=== PATIENT | male | born 1945 | race Caucasian/White ===

== ENCOUNTER 2024-06-23 13:37 | Inpatient (IN) | payer OTHER, SELFPAY ==
[2024-06-23] VITALS (8 sets, daily range): BP systolic 116–160; BP diastolic 67–90; BMI 25.4
--- NOTE | 2024-06-23 07:20 | ED.GENMED ---
Addendum entered and electronically signed by Chintan Pacheco Jr., PA-C 06/23/24 15:14:
The patient claims that he would like to go home. The patient does have full capacity it was explained to him thoroughly that there is significant risk of going home considering he is still mildly tachycardic in the low 100 and his pulse ox was low
earlier. He demonstrated understanding of this. He claims he still would like to go home and would come back if any symptoms worsen. Concerning this he was written for antibiotics and steroids given very strict return precautions. Patient does
understand the potential consequences of going home against our advice.
Original Note:
History of Present Illness
General
Chief Complaint: Cold/Flu/URI Symptoms
Source: patient, spouse and family
Exam Limitations: none
Time Seen by Provider: 06/23/24 07:13
Nursing documentation reviewed up to this point in time: agreed with
History of Present Illness
History of Present Illness:
78-year-old male with past medical history of collapsed left lung COPD presenting to the emergency department today with concerns of initial viral symptoms over the past few days but over the past 2 days noticeable worsening of shortness of breath.
Does not use home oxygen but was concerned of low pulse ox en route here.
Past History
Past History
ED Past Medical History: HTN, Hypercholesterolemia, Other (BPH, obesity, kidney stones) and Other (inclusion body myositis, collapsed lung,)
ED Past Surgical History: Appendectomy and Orthopedic (knee problem)
Social History
Tobacco: Former smoker
Alcohol: None
Drug: None
Personal:
Living: with family
Employment: Retired
Family History
Family History: Other (non contrib)
Review of Systems
Review of Systems
Allergies reviewed?: Yes
All Other Systems: ROS reviewed and negative except as documented in HPI and ROS
Phy Exam
Physical Exam
Physical Exam:
GENERAL: Alert , in no apparent distress
EYE: pupils equal and reactive
NECK: Supple, no significant adenopathy.
ENT: o/p clr, mmm.
CARDIAC: Regular rate and rhythm .
LUNGS: Expiratory wheezing diffusely
ABDOMEN: Soft, without focal tenderness, no r/g, no cvat
NEUROLOGICAL: Alert and oriented, no focal neuro deficits
SKIN: Warm and dry, skin intact.
MUSCULOSKELETAL: No edema, well perfused.
PSYCH: Normal and appropriate interaction.
Sepsis
Sepsis Screening
Sepsis Assessment: Sepsis Ruled Out
Sepsis Screen
Sepsis Screen: Sepsis Ruled Out
Date: 06/23/24
Time: 11:54
Course
Orders/Labs/Results
Orders:
Orders
06/23/24 07:20
Chest [CR Chest - 2 Views ] Urgent
Comment:
Reason For Exam: cough sob
06/23/24 07:32
Basic Metabolic Panel Urgent
COVID-19 Antigen Urgent
Source: Nasal Swab
Complete Blood Count/With Diff Urgent
Influenza A+B Rapid Molecular Urgent
NIALL Source: Nasal Swab
Specimen Description:
06/23/24 07:47
EKG [Electrocardiogram (*1)] Urgent
Reason for Study: Fatigue / Weakness
EKG- Treatment ONCE
Dexamethasone [Decadron] 10 mg PO NOW STA
Ipratropium/Albuterol Sulfate [Duoneb] 3 ml INH R NOW ONE
06/23/24 08:58
Azithromycin [Zithromax] 500 mg PO NOW STA
Ipratropium/Albuterol Sulfate [Duoneb] 3 ml INH R NOW ONE
Abnormal Lab Results
06/23/24
07:32
Absolute Neuts (auto) 7.7 H 10^3/uL
(1.4-6.5)
Absolute Monos (auto) 0.8 H 10^3/uL
(0.1-0.6)
Lymphocytes % 11.9 L %
(20.5-51.1)
Creatinine 0.5 L mg/dL
(0.7-1.3)
Glucose 110 H mg/dl
(70-99)
06/23/24 07:32
06/23/24 07:32
Vital Signs
Initial and Last Documented VS:
Initial Vital Signs
Temp Pulse Resp BP Pulse Ox
98.3 F 108 21 160/83 96
06/23/24 07:11 06/23/24 07:11 06/23/24 07:11 06/23/24 07:11 06/23/24 07:11
Last Documented Vital Signs
Temp Pulse Resp BP Pulse Ox
98.3 F 124 29 135/67 95
06/23/24 07:11 06/23/24 10:15 06/23/24 10:15 06/23/24 10:00 06/23/24 10:15
MDM/Problems Addressed
MDM/Problems Addressed:
78-year-old male presenting to the emergency department today with concerns of worsening shortness of breath over the past 24 hours. Preceded by with him to be consistent with a viral syndrome. Upon arrival here pulse ox in the 80s patient appears
somewhat short of breath. Patient does have expiratory wheezing and was started on steroids and DuoNebs. Does have a history of COPD and has had increased mucus production was started on azithromycin. Patient reassessed after multiple DuoNebs
steroids and azithromycin dose. Patient continued elevated heart rate pulse ox dropping to the 80s when off of oxygen. Considering the patient is not typically on oxygen plan to admit for further treatment and monitoring here.
*Critical Care Note
Total Time (30-74mins, 75-104mins- exclusive of procedures): Not Applicable
ED Attending Note
-
Portions of this chart may have been created with voice recognition software.� Occasional wrong word or��sound alike� substitutions may have occurred due to the inherent limitations of voice recognition software.
Discharge Plan
Departure
Patient Disposition: Admit
Date of Disposition: 06/23/24
Time of Disposition: 11:53
Admit to: Med/Surg
Admit to doctor: Abdiel
Presentation/result/management discussed w/ accepting MD/DO: Hospitalist
Patient with high blood pressure during this ER visit?: No
Condition: Good
Covid-19: Not Applicable
Discharge Problem:
COPD exacerbation, Acute viral syndrome
Prescriptions:
No Action
lisinopril 40 MG tablet
40 mg PO HS
finasteride 5 MG tablet
5 mg PO DAILY
atorvastatin 20 MG tablet
20 mg PO QPM
Spiriva Respimat 2.5 mcg/actuation Mist
2 inh INHALATION R DAILY
docusate sodium 100 MG capsule
200 mg PO QPM
albuterol sulfate 1 PUFF HFA aerosol inhaler
2 puff inhalation R Q8HPRN PRN (Reason: sob)
budesonide-formoterol [Symbicort] 160-4.5 mcg/actuation Hfa Aerosol Inhaler
1 inh INHALATION R BIDPRN PRN (Reason: sob)
ibuprofen [Advil] 200 mg Tablet
400 mg PO DAILYPRN PRN (Reason: mild pain)
Referrals:
Thierno Mckee DO [Family Provider] -
Interventions
Interventions:
*Risk Screen - Suicide Last Done: 06/23/24 07:11
*General Assessment Last Done: 06/23/24 07:11
*Neglect/Abuse Screening Last Done: 06/23/24 07:11
ED- Fall Risk Assessment Last Done: 06/23/24 07:11
*ED COVID-19 Vaccine History Last Done: 06/23/24 07:11
ED- Pulmonary Assessment Last Done: 06/23/24 07:46
Discharge Date and Time
Print Language: NEPALI
[2024-06-23 07:57] LABS: % Eosinophils 5.7 % (0-6); % Immature Granulocytes 0.4 % (0-0.5); % Lymphocytes 11.9 % (20.5-51.1); % Monocytes 7.7 % (1.7-9.3); % Neutrophils 73.3 % (42.2-75.2); Absolute Basophils 0.1 10^3/uL (0-0.2); Absolute Eosinophils 0.6 10^3/uL (0-0.7); Absolute Lymphocytes 1.2 10^3/uL (1.2-3.4); Absolute Monocytes 0.8 10^3/uL (0.1-0.6); Absolute Neutrophils 7.7 10^3/uL (1.4-6.5); Hematocrit 45.4 % (39.0-52.0); Hemoglobin 15.3 g/dL (13.0-18.0); Mean Corp Hgb Conc. 33.7 g/dL (33.0-37.0); Mean Corpuscular Hgb 29.7 pg (27.0-31.0); Mean Platelet Volume 9.6 fL (7.4-10.4); Nucleated Red Blood Cells % 0 % (-); Platelet Count 208 10^3/uL (130-400); Red Blood Cell Count 5.16 10^6/uL (4.70-6.10); Red Cell Dist. Width 13.2 % (11.5-14.5); White Blood Cell Count 10.4 10^3/uL (4.8-10.8)
[2024-06-23] MEDS: DECADRON 10 MG PO (07:58)
[2024-06-23] MEDS: DUONEB 3 ML INH ×2 (07:58→09:27)
[2024-06-23 08:05] LABS: COVID-19 Antigen Negative (Negative)
[2024-06-23 08:07] LABS: Blood Urea Nitrogen 17 mg/dl (9-20); Calcium 8.7 mg/dl (8.4-10.2); Carbon Dioxide 28 mmol/L (22-30); Chloride 100 mmol/L (98-107); Estimated Creatinine Clearance 115 ml/min; Glucose 110 mg/dl (70-99); Sodium 138 mmol/L (135-145); eGFR > 60.00
[2024-06-23] MEDS: ZITHROMAX 500 MG PO (09:27)
--- NOTE | 2024-06-23 12:17 | W.PN.UPDATE ---
Update Note
Progress Note Update
I personally performed a history and physical exam of the patient and discussed management with the resident. I reviewed the resident's note and agree with the documented findings and plan of care HPI/CC.
78-year-old male presents with chief complaint of shortness of breath.
135/67, 124, 29, 98.3 F, 95%
Gen: NAD, AAOx3.
Eyes: EOMI, PERRLA, no scleral icterus.
Neck: supple.
CV: RRR, +S1/S2, no m/r/g.
Resp: dec BS in the bases, B/L wheezes
Abd: +BS, soft, NT, ND
Skin: No rashes.
Neuro: CN 2-12 intact
Psych: Normal mood and affect.
Lab Results
06/23/24
07:32
WBC 10.4
RBC 5.16
Hgb 15.3
Hct 45.4
MCV 88.0
MCH 29.7
MCHC 33.7
RDW 13.2
Plt Count 208
MPV 9.6
Abs Immat Gran (auto) 0.0
Absolute Neuts (auto) 7.7 H
Absolute Lymphs (auto) 1.2
Absolute Monos (auto) 0.8 H
Absolute Eos (auto) 0.6
Absolute Basos (auto) 0.1
Immature Gran % 0.4
Neutrophils % 73.3
Lymphocytes % 11.9 L
Monocytes % 7.7
Eosinophils % 5.7
Basophils % 1.0
Nucleated RBC % 0
Sodium 138
Potassium
Chloride 100
Carbon Dioxide 28
BUN 17
Creatinine 0.5 L
Estimated Creat Clear 115
eGFR > 60.00
Glucose 110 H
Calcium 8.7
Total Bilirubin Cancelled
AST Cancelled
ALT Cancelled
Alkaline Phosphatase Cancelled
Total Protein Cancelled
Albumin Cancelled
SARS-CoV-2 Antigen Negative
CXR: There is mild elevation of the left hemidiaphragm with likely chronic left basilar atelectasis/scarring. No new focal airspace disease.
Acute COPD Exac:
-ER gave Decadron 10mg IV, xuan perkins
-cont IV Decadron
-NC O2 support, goal pulse ox 90-92%
-duonebs PRN
-cont home Spiriva/symbicort
Other problems:
HLD: Cont statin
Essential HTN: cont Lisinopril
--- NOTE | 2024-06-23 12:44 | HPS.HSE ---
Family Physician
-
Family Physician: Thierno Mckee
Chief Complaint
-
Shortness of breath
History of Present Illness
This is a 78-year-old male with past medical history of inclusion body myositis (wheelchair-bound), collapsed left lung COPD, BPH who presented to ED today with worsening shortness of breath. Patient reports he had episode of viral syndrome the
past 2 days with symptoms including runny nose, productive cough with clear sputum, shortness of breath. Shortness of breath continued to worsen, hence he decided to come into the ED for evaluation. On presentation to ER, pulse ox was in the
80s with patient appearing to be short of breath. Afebrile with blood pressure stable, heart rates in 120s, O2 sats 96% on 2 L. Patient reports he does not use oxygen at home. He reports his typical baseline is mild shortness of breath due to
collapsed lung, but this has been worsening since the viral syndrome.
Medical History
Past Medical History
Past Medical History: Reports Other (BPH, kidney stones, inclusion body myositis, collapsed left lung, hypertension, hypercholesterolemia)
Past Surgical History: Reports Other (Appendectomy)
Social History
Tobacco: Former Smoker (Has not smoked in 40 years.)
Alcohol: None
Drug: None
Personal:
Living: With Family
Family History
Family History: Not pertinent
Allergies / Home Medications
Allergies reflects when Allergies were last updated in [facility].
Home Medications with original date entered in [facility]
Allergy/Medication List:
Allergies
Allergy/AdvReac Type Severity Reaction Status Date / Time
Beta-Blockers Allergy Unknown Unknown Verified 09/02/15 15:40
(Beta-Adrenergic Bloc
Home Medications
finasteride 5 mg tablet 5 mg PO DAILY 08/19/14
lisinopril 40 mg tablet 40 mg PO HS 08/19/14
atorvastatin 20 mg tablet 20 mg PO QPM 08/27/15
albuterol sulfate 90 mcg/actuation aerosol inhaler 2 puff inhalation R Q8HPRN PRN sob 06/23/24
budesonide-formoterol HFA 160 mcg-4.5 mcg/actuation aerosol inhaler (Symbicort) 1 inh inhalation R BIDPRN PRN sob 06/23/24
docusate sodium 100 mg capsule 200 mg PO QPM 06/23/24
ibuprofen 200 mg tablet (Advil) 400 mg PO DAILYPRN PRN mild pain 06/23/24
tiotropium bromide 2.5 mcg/actuation mist for inhalation (Spiriva Respimat) 2 inh inhalation R DAILY 06/23/24
Review of Systems
-
History Source: Patient
A 12 point ROS was completed and negative except as noted: Yes
Constitutional: Reports See HPI
Respiratory: Reports See HPI
Physical Exam
Vital Signs
Vital Signs
Temp Pulse Resp BP Pulse Ox
98.3 F 116 24 116/72 96
06/23/24 07:11 06/23/24 12:30 06/23/24 12:30 06/23/24 12:00 06/23/24 12:30
Physical Exam
General: Well Developed and Well Nourished
Respiratory: Wheezes (Expiratory bilateral wheezes) and Decreased Breath Sounds (Bilateral bases); No Rales or Rhonchi
Cardiac: S1/S2, Regular Rhythm and Tachycardia
GI: Soft, Non Tender and Non Distended
Musculoskeletal: No Edema
Neuro: Awake, Alert, Oriented and AO x 3
Laboratory Results
-
06/23/24 07:32
06/23/24 07:32
Laboratory Results
Total Bilirubin Cancelled 06/23/24 07:32
AST Cancelled 06/23/24 07:32
ALT Cancelled 06/23/24 07:32
Alkaline Phosphatase Cancelled 06/23/24 07:32
Impression/Plan
-
IMPRESSION/PLAN:
#Acute COPD exacerbation
-On presentation to the ER was given Decadron 10 mg IV, DuoNebs, azithromycin
-Will continue on Decadron 4 mg IVq8
-DuoNebs as needed
-Continue home Symbicort and Spiriva Respimat
-CXR on presentation: There is mild elevation of the left hemidiaphragm with likely chronic left basilar atelectasis/scarring. No new focal airspace disease.
-PT eval and treat
-Continue O2 support, wean to tolerated level 90 to 92%
# Hypertension
-Continue home lisinopril
#Hyperlipidemia
-Continue statin
#BPH
-Continue finasteride
CODE STATUS: Full code
DVT prophylaxis: Lovenox
--- NOTE | 2024-06-24 07:30 | W.DCSUMMARY ---
Addendum entered and electronically signed by Dean Medina MD, Resident 06/24/24 09:04:
CHANGES: Date of discharge is 06/23/2024. Patient left AMA 06/23/2024
Addendum entered and electronically signed by Clark Meadows MD 06/24/24 08:34:
Read, reviewed, and agree. See same day progress note for additional details. Pt left AMA.
Original Note:
Discharge Summary
Discharge Data
Date of Admission: 06/23/24
Date of Discharge: 06/24/24
-
Pending Results: No
Hospital Course
This is a 78-year-old male with past medical history of inclusion body myositis (wheelchair-bound), collapsed left lung COPD, BPH who presented to ED yesterday with worsening shortness of breath. Patient reports he had episode of viral syndrome
the past 3 days with symptoms including runny nose, productive cough with clear sputum, shortness of breath. Shortness of breath continued to worsen, hence he decided to come into the ED for evaluation. On presentation to ER, pulse ox was in
the 80s with patient appearing to be short of breath. Afebrile with blood pressure stable, heart rates in 120s, O2 sats 96% on 2 L. Evaluation with a chest x-ray showed mild elevation of the left hemidiaphragm with likely chronic left basilar
atelectasis/scarring and no new focal airspace disease. Patient was given Decadron, DuoNebs, azithromycin and NC O2 support in the ER. Patient decided to leave AGAINST MEDICAL ADVICE despite understanding the significant risk of going home
considering he was still mildly tachycardic and his pulse ox was low. He demonstrated understanding this decision.
Patient left AGAINST MEDICAL ADVICE.
Discharge Plan
-
Patient Disposition: Home (Routine Discharge)
Prescriptions:
No Action
lisinopril 40 MG tablet
40 mg PO HS
finasteride 5 MG tablet
5 mg PO DAILY
atorvastatin 20 MG tablet
20 mg PO QPM
Spiriva Respimat 2.5 mcg/actuation Mist
2 inh INHALATION R DAILY
docusate sodium 100 MG capsule
200 mg PO QPM
albuterol sulfate 1 PUFF HFA aerosol inhaler
2 puff inhalation R Q8HPRN PRN (Reason: sob)
budesonide-formoterol [Symbicort] 160-4.5 mcg/actuation Hfa Aerosol Inhaler
1 inh INHALATION R BIDPRN PRN (Reason: sob)
ibuprofen [Advil] 200 mg Tablet
400 mg PO DAILYPRN PRN (Reason: mild pain)
Discharge Date and Time
Discharge Date/Time: 06/23/24 16:13
Print Language: POLISH
== END 2024-06-23 16:13 | disposition left against medical advice (07) | DRG 191 ==
LOC: ED 13:37
PROVIDERS: Physician Assistant; Student in an Organized Health Care Education/Training Program; ADMITTING PHYSICIAN Internal Medicine; EMERGENCY PHYSICIAN Emergency Medicine; FAMILY PHYSICIAN Family Medicine
DX: J44.1 Chronic obstructive pulmonary disease with (acute) exacerbation (principal); J98.11 Atelectasis; I10 Essential (primary) hypertension; E66.9 Obesity, unspecified; G72.41 Inclusion body myositis [IBM]; B34.9 Viral infection, unspecified; Z53.29 Procedure and treatment not carried out because of patient's decision for other reasons; E78.00 Pure hypercholesterolemia, unspecified; N40.0 Benign prostatic hyperplasia without lower urinary tract symptoms; Z68.25 Body mass index [BMI] 25.0-25.9, adult; Z87.442 Personal history of urinary calculi; Z99.3 Dependence on wheelchair; Z87.891 Personal history of nicotine dependence; Z79.899 Other long term (current) drug therapy; Z88.8 Allergy status to other drugs, medicaments and biological substances
CPT/HCPCS: 71046; 80048; 85025; 87502; 87811; 93005; 94640; 99285

== ENCOUNTER → 2025-04-01 11:50 | Outpatient (REF) | payer OTHER, SELFPAY | LOC: RAD 11:50 | PROVIDERS: ATTENDING PHYSICIAN Surgery Vascular Surgery; FAMILY PHYSICIAN Family Medicine | DX: I71.43 Infrarenal abdominal aortic aneurysm, without rupture (principal) | CPT/HCPCS: 74178; Q9967 ==

== ENCOUNTER 2025-05-09 06:14 | Inpatient (IN) | payer OTHER, SELFPAY ==
[2025-05-05 10:15] VITALS: BMI 23.1
[2025-05-05 10:42] LABS: Hematocrit 45.7 % (39.0-52.0); Hemoglobin 14.9 g/dL (13.0-18.0); Mean Corp Hgb Conc. 32.6 g/dL (33.0-37.0); Mean Corpuscular Volume 91.8 fL (80.0-94.0); Nucleated Red Blood Cells % 0 % (-); Platelet Count 191 10^3/uL (130-400); Red Cell Dist. Width 14.1 % (11.5-14.5)
[2025-05-05 10:53] LABS: INR 0.98; PT 13.5 Sec (11.4-14.6)
[2025-05-05 10:54] LABS: APTT 29.0 Sec (23.4-35.0)
[2025-05-05 11:08] LABS: Blood Urea Nitrogen 16 mg/dl (9-20); Calcium 8.5 mg/dl (8.4-10.2); Carbon Dioxide 32 mmol/L (22-30); Chloride 99 mmol/L (98-107); Estimated Creatinine Clearance 112 ml/min; Glucose 108 mg/dl (70-99); Potassium 4.3 mmol/L (3.5-5.1); Sodium 135 mmol/L (135-145); eGFR > 60.00
[2025-05-09] VITALS (9 sets, daily range): BP systolic 119–161; BP diastolic 75–102
--- NOTE | 2025-05-09 06:55 | W.SUR.PREOP ---
Pre-Operative Surgical Note
-
I have examined this patient prior to the performance of the scheduled procedure.
The patient's condition is unchanged from the time of the current History and
Physical and the patient is able to undergo the scheduled procedure.
[2025-05-09] MEDS: NSS 500 IV (07:05)
[2025-05-09] MEDS: BACTROBAN NASAL 1 GRAM NASAL (07:11)
[2025-05-09] MEDS: PERIDEX 0.12% ORAL RINSE 15 ML PO (07:11)
--- NOTE | 2025-05-09 09:10 | W.SUR.POST ---
Surgical Immediate Post Op
Note
Pre Op Diagnosis: AAA
Post Op Diagnosis: AAA
Procedure Performed: EVAR
Primary Surgeon: Anant
Secondary Surgeons: Farhan HONG
Anesthesia: general
Estimated Blood Loss: 5cc
Fluids: see anesthesia flow sheet
Drains/Shunts: none
Specimens/Cultures: none
Doppler/Duplex/Angio (Y/N): Y
Complications: none
Operative Findings: successful EVAR
--- NOTE | 2025-05-09 09:54 | OR.RPT ---
Addendum entered and electronically signed by Sid Ny MD 05/09/25 09:58:
FLUOROSCOPY:
Time: 12.2 minutes
Dose: 136 mGy
DAP: 39.19
Original Note:
Operative Report
Operative Report
PROCEDURE DATE: 05/09/2025
Preoperative diagnosis: Infrarenal abdominal aortic aneurysm.
Postoperative diagnosis: Same
Procedure:
1. Endovascular repair of abdominal aortic aneurysm with bifurcated modular endoprosthesis ([employer] Zenith Flex [id number]) with bilateral iliac limb extension (left Cook [id number] [id number]-[id number], right Cook [id number]).
2. Percutaneous bilateral common femoral artery closure.
3. Supervision and interpretation.
Surgeon: Anant
Parts Runner: None
Complications: None
Anesthesia: General
Indications for procedure:
Abdominal aortic aneurysm, enlarging surveillance, reached size threshold for repair. Risk/benefits/alternatives of endovascular pair were all fully discussed. Patient understood all wished to proceed.
Description of procedure:
Patient was identified brought to the operating room placed on the table in supine position. After the adequate administration of anesthesia and perioperative antibiotics he was prepped and draped in the standard surgical fashion. A standard
preoperative timeout was undertaken and everybody was in agreement the plan. Bilateral common femoral artery access was obtained under direct duplex ultrasound guidance. 6 Indian sheaths were placed over 0.035 inch wires. Next, small 1 cm
incisions were made around the sheath entry sites bilaterally. Blunt dissection was undertaken with hemostats to facilitate percutaneous suture delivery. Next, using the ProGlide suture system, percutaneous sutures were deployed at the 10:00 and 2
o'clock position bilaterally in the standard fashion. Suture strands were tagged outside the skin. We exchanged for 11 Indian sheaths bilaterally. Next wires were guided into the supraceliac aorta from bilateral access sites. On the left side I
exchanged out for a pigtail catheter which was positioned in the juxtarenal aorta. The right side I exchanged for a Lunderquist wire. The patient was given 6000units of intravenous heparin. The main body of the device was brought into place (Cook
[id number]). I oriented this under fluoroscopy such that the contralateral gate would be essentially anterior or slightly crossed. Next I exchanged my right-sided 11 Indian sheath for the Cook delivery system. This was advanced under direct
fluoroscopy.
Once this was advanced to the level of the juxtarenal aorta, power injection aortography was obtained via the left-sided pigtail catheter. This was done in the appropriate obliquity based on the CT scan imaging prior. The positions of bilateral
renal arteries were essentially at the same level, and were marked clearly on the screen. Next, I began to unsheath the main body stent graft once I was satisfied that the beginning of the fabric was positioned just at or below the level of the
inferior margin of the renal arteries. I unsheathed the first 2 stents. Stent graft was slightly high and I lowered it again to match up with the positioning of the inferior aspect of the renal arteries so as not to cover them. Once satisfied, I
continued to unsheath until the contralateral gate was now fully exposed. Of note, the pigtail catheter had been withdrawn down prior to this portion.
Next, I released the proximal trigger wire. I then deployed the suprarenal bare stents in the standard fashion. I now exchanged the pigtail catheter over a Glidewire, and advanced a K2 catheter. This is an angled catheter and using this and the
floppy Glidewire I was able to relatively easily cannulate the contralateral gate. I advanced the Glidewire all the way up to the supraceliac aorta. I then exchanged the K2 catheter for a pigtail catheter. I spun the pigtail catheter within the
stent graft and above the stent graft confirming that the pigtail was indeed through the true lumen of the contralateral gate. Now I advanced a Lunderquist wire and performed retrograde pelvic angiography in the appropriate obliquity. As such I
was able to katie the level of the iliac bifurcation and select the appropriate level iliac limb for this contralateral left side now. This was a Cook [id number] device. I now exchanged the left side 11 Indian sheath out (once the pigtail
catheter was removed) over this Lunderquist wire for the delivery device for the iliac limb. I now advanced the stent graft into position such that I had suitable overlap in the contralateral gate and distally I was just short of the iliac
bifurcation. Once satisfied with the positioning, I unsheathed this and deployed it completely. I was very satisfied with the positioning. The delivery device was then removed maintaining the sheath in place.
I now turned my attention to the right side. I now unsheathed the remaining portion of the right iliac limb of the main body of the stent graft. Once this was completed, the distal trigger wire was then released, the nose cone recaptured in the
top cap, and this delivery mechanism walked off, maintaining the sheath in place. Next we selected the appropriate extension iliac stent for the right ipsilateral side. This was a Cook [id number]. Retrograde pelvic angiography in the
appropriate obliquity had been performed to katie the iliac bifurcation. I now advanced the iliac stent and positioned it with suitable overlap in the ipsilateral limb (iliac limb) of the main body, and confirmed that I was just short of the iliac
bifurcation so as not to cover it. Satisfied with the position I unsheathed this completely. I was very happy with its positioning. I now remove this delivery device.
Now a Coda molding balloon was used to mold proximal and distal seal zones as well as overlap sites.
Pigtail catheter was then readvanced up the right side. Power injection completion angiography demonstrated excellent positioning of the stent graft with good filling of bilateral renal arteries. No evidence of any type I endoleak was noted.
Bilateral iliac limbs filled well and bilateral external and internal iliac arteries filled well as well. There is no evidence of type Ib endoleak noted. I could not see a definitive type II endoleak on this imaging. I could not see any filling
of the aneurysm sac at this point. Was very satisfied.
Next I exchanged my pigtail catheter back for a Lunderquist wire. Next, I sequentially removed the sheath while cinching down the percutaneous sutures. This was initially done on the right side and then on the left. Once hemostasis was noted the
wire was then withdrawn, the knot was tightened with a knot pusher. Hemostasis was confirmed. The knot was then locked and the suture strands trimmed. This was done as noted on the right initially and then on the left. Hemostasis was fully
achieved bilateral groins with good femoral pulses bilaterally. The small skin incisions were then closed with 4-0 Monocryl subcuticular stitch and Dermabond was applied. Patient tolerated procedure well. He had palpable 2+ right PT and left DP
pulse upon completion. The patient tolerated the procedure well. He was transported to recovery room in stable condition.
[2025-05-09 10:26] LABS: Blood Urea Nitrogen 16 mg/dl (9-20); Calcium 8.0 mg/dl (8.4-10.2); Carbon Dioxide 27 mmol/L (22-30); Chloride 102 mmol/L (98-107); Estimated Creatinine Clearance 112 ml/min; Glucose 91 mg/dl (70-99); Potassium 4.1 mmol/L (3.5-5.1); Sodium 134 mmol/L (135-145); eGFR > 60.00
[2025-05-09 10:45] LABS: Hematocrit 42.0 % (39.0-52.0); Hemoglobin 13.6 g/dL (13.0-18.0); Mean Corp Hgb Conc. 32.4 g/dL (33.0-37.0); Mean Corpuscular Volume 90.7 fL (80.0-94.0); Red Cell Dist. Width 13.8 % (11.5-14.5)
[2025-05-09] MEDS: NSS 1000 IV ×2 (11:29→20:08)
[2025-05-09 11:41] LABS: Platelet Count 148 10^3/uL (130-400)
--- NOTE | 2025-05-09 12:00 | PTCARENOTE ---
Rec'd patient from PACU at 1105. Patient alert and oriented. MAEx4. EKG obtained- ST with first degree avb and pvcs. B/l LE neurovascular checks wnl (see worklist). B/l groin sites intact. Simple mask 6L. Lung sounds diminished throughout. Weaned to
RA around 1140. Productive cough present; thick, clear sputum. [place] provided. +BS. Tolerating clears. Baltazar in place for critical I/O. IVFs infusing as ordered. VSS. Right radial negar zeroed. Correlating with bp cuff. Patient verbalizing
understanding of HOB restriction. Call marks within reach.
--- NOTE | 2025-05-09 12:05 | CON.INTV ---
Consultation
Consultation Request
Date/Time Consultation Requested: 05/09/2025
Date/Time Consultation Performed: 05/09/2025
Medical History
-
Chief Complaint: Aortic aneurysm
History of Present Illness:
Patient is a 79-year-old gentleman with known history of abdominal aortic aneurysm which was noted to be enlarging on surveillance imaging. Patient was referred to vascular surgery service and was felt to be a good candidate for endovascular aortic
aneurysm repair. Patient was brought to the hospital on 05/09 for the above-stated procedure and postprocedure, was admitted to ICU. Nurse Midwife/Clinical Instructor consultation was requested for further input.
Past medical history. BPH, COPD/asthma overlap, moderate restrictive lung disease suspect due to obesity, hypertension, hyperlipidemia, obstructive sleep apnea, left lower lobe bronchiectasis, inclusion body myositis, abdominal aortic aneurysm.
Social history. Close to [id number] smoking history, patient quit smoking more than 20 years ago.
Allergies / Home Medications
Allergies
Allergy/AdvReac Type Severity Reaction Status Date / Time
Beta-Blockers Allergy Unknown Unknown Verified 05/09/25 06:31
(Beta-Adrenergic Bloc
Home Medications
�Medication �Instructions �Recorded �Confirmed �Last Taken �Type
finasteride 5 mg tablet 5 mg PO DAILY 08/19/14 05/09/25 05/09/25 05:30 History
lisinopril 40 mg tablet 40 mg PO QPM 08/19/14 05/09/25 05/08/25 18:00 History
atorvastatin 20 mg tablet 20 mg PO QPM 08/27/15 05/09/25 05/08/25 18:00 History
albuterol sulfate 90 mcg/actuation 2 puff inhalation R Q8HPRN PRN sob 06/23/24 05/09/25 8 Months Ago History
aerosol inhaler ~09/08/24
tiotropium bromide 2.5 2 inh inhalation HS 06/23/24 05/09/25 05/08/25 22:00 History
mcg/actuation mist for inhalation
(Spiriva Respimat)
albuterol sulfate 2.5 mg/3 mL 2.5 mg inhalation DAILY 05/02/25 05/09/25 05/08/25 07:00 History
(0.083 %) solution for nebulization
amlodipine 5 mg tablet 5 mg PO QPM 05/02/25 05/09/25 05/08/25 18:00 History
Review of Systems
-
Hematologic/Lymphatic: Other (All 14 systems reviewed and negative except as stated above in the history of present illness.)
Vitals / Labs / Diagnostic Testing
Vital Signs
Temp Pulse Resp BP Pulse Ox
96 F L 86 14 161/91 96
05/09/25 11:20 05/09/25 11:30 05/09/25 11:30 05/09/25 11:13 05/09/25 11:41
Lab Data
05/09/25 09:55
05/09/25 09:55
Diagnostic Testing:
Physical Exam
-
HEENT: Normocephalic
Cardiovascular: S1/S2
Respiratory: Clear
GI: Soft and Non Distended
Neurology: Awake and Alert
Skin: Warm
General: Comfortable
Assessment
-
Patient is 79-year-old gentleman with history of abdominal aortic aneurysm s/p EVAR (endovascular aneurysmal repair) by vascular surgery service, POD #0
Continue observation following procedure
Follow neurovascular checks per protocol
ASA, Amlodipine and statin on board
Follow BP monitoring and parameters as set by primary team
Cardiac history reviewed
Monitor on telemetry
Pain control per protocol
RASS goal 0
Known history of left lower lobe atelectasis/chronic scarring
CXR reviewed indicating no acute disease
Encouraged IS
Diet advancement per protocol
Aspiration precautions
GI prophylaxis: None
Cr at baseline, follow UO
Critical I/Os
Void trials
Replete electrolytes as needed
No signs/symptoms suspicious for infectious etiology at this time
Will observe off antibiotics for now
Follow temperatures/CBC
Hb and platelets postoperatively stable
DVT prophylaxis: Heparin
Other medical diagnoses:
- h/o Asthmatic bronchitis and COPD. On Spiriva, PRN Albuterol.
- Inclusion body myositis
- Hypertension, hyperlipidemia
- Palpitation with occasional PVCs
- Rosacea
- LLL focal bronchiectasis and chronic scarring/atelectasis on imaging
- H/o Smoking, quit >20 years ago
- H/o Pulmonary nodules, stable (Follows up with Dr. Galan at [facility] Pulmonary clinic)
- H/p STEVE. Not on CPAP at home, reportedly has lost more than 40 pounds of weight since initial diagnosis and currently not complaining of excessive somnolence.
- History of mixed obstructive and restrictive lung disease. Suspect restriction related to underlying history of inclusion body myositis and weakness along with obesity.
Critical Care time 62 mins -- The patient is admitted for acute critical illness for the treatment of vital organ failure and/or prevention of further life-threatening conditions. Total care includes time spent in review of history, physical exam,
medications, hemodynamic/ventilator parameters, laboratory data, imaging and discussion with house staff, pharmacy, respiratory therapy, chief of anesthesiology, and nursing
Data:
CXR 04/2025: No radiographic evidence of acute cardiopulmonary abnormality.
CT A/P 04/2025: 1. 5 cm fusiform infrarenal abdominal aortic aneurysm.
2. 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
3. Diffuse muscular atrophy.
4. Punctate calculus within the midpole of the right kidney. No hydronephrosis. Couple of small bladder calculi. Severe prostamegaly.
Spirometry 08/2015: Severe probable combined Obstructive and Restrictive Lung Disease is present.
ECHO 2016: Normal left ventricular systolic function.
Left ventricular ejection fraction is 55-60%.
Mild concentric left ventricular hypertrophy.
No mitral regurgitation is seen.
Trace tricuspid regurgitation.
No prior study available for comparison.
[2025-05-09] MEDS: LOW STRENGTH ASPIRIN 81 MG PO (12:20)
[2025-05-09 12:43] LABS: Glucose - Point of Care 95 mg/dl (70-99)
[2025-05-09] MEDS: HEPARIN 5000 UNITS SC (16:07)
--- NOTE | 2025-05-09 16:15 | PTCARENOTE ---
No major changes in assessment. Patient resting comfortably. VSS. Tolerating clears. Diet advanced to cholesterol lowering diet.
[2025-05-09] MEDS: NORVASC 5 MG PO (17:02)
[2025-05-09] MEDS: LIPITOR 20 MG PO (17:02)
[2025-05-09] MEDS: ZESTRIL 40 MG PO (17:03)
[2025-05-09 17:44] LABS: Magnesium 1.7 mg/dl (1.6-2.3)
[2025-05-09] MEDS: SPIRIVA RESPIMAT 2.5 MCG 2 PUFF INH (19:44)
--- NOTE | 2025-05-09 20:17 | PTCARENOTE ---
Received patient at change of shift. Patient aao x3, affect pleasant, able to make needs known. Patient able to move all extremities, strength at baseline per patient and previous RN. B/L pedal and doppler pulses present with doppler. B/L groin
sites with surgical glue, intact and soft. Lungs diminished throughout, no sob or mata noted. Pox 94% on RA. BS active x4, abdomen soft, non-tender. Baltazar cath patent and intact, draining clear yellow urine. Hygiene provided, sacral foam applied for
preventative measures. Patient has NS at 80ml/hr to left forearm IV. Call marks within reach, will continue to monitor patient closely.
[2025-05-10] VITALS: BP 111/66
[2025-05-10] MEDS: NSS 250 IV (00:38)
[2025-05-10] MEDS: HEPARIN 5000 UNITS SC ×2 (00:53→09:58)
--- NOTE | 2025-05-10 01:12 | PTCARENOTE ---
Patient continues to be pain free. Patient noted to have decreased hourly urine output. Tawanda HONG notified, IVF bolus ordered and administered. Will continue to monitor.
[2025-05-10 05:04] LABS: INR 1.08; PT 14.3 Sec (11.4-14.6)
--- NOTE | 2025-05-10 05:04 | PTCARENOTE ---
Assessment overall unchanged. Patient oriented and able to make needs known. Urinary output has increased to average 40ml/hr, clear yellow urine. Will continue to monitor patient closely.
[2025-05-10 05:05] LABS: APTT 33.0 Sec (23.4-35.0)
[2025-05-10 05:10] VITALS: BMI 24.0
[2025-05-10 05:10] LABS: Hematocrit 40.8 % (39.0-52.0); Hemoglobin 13.4 g/dL (13.0-18.0); Mean Corp Hgb Conc. 32.8 g/dL (33.0-37.0); Mean Corpuscular Volume 88.9 fL (80.0-94.0); Platelet Count 163 10^3/uL (130-400); Red Cell Dist. Width 13.8 % (11.5-14.5)
[2025-05-10 05:21] LABS: Blood Urea Nitrogen 14 mg/dl (9-20); Calcium 7.5 mg/dl (8.4-10.2); Carbon Dioxide 28 mmol/L (22-30); Chloride 104 mmol/L (98-107); Estimated Creatinine Clearance 113 ml/min; Glucose 111 mg/dl (70-99); Potassium 4.3 mmol/L (3.5-5.1); Sodium 133 mmol/L (135-145); eGFR > 60.00
[2025-05-10] MEDS: VENTOLIN NEBULES 2.5 MG INH (07:42)
[2025-05-10 08:00] VITALS: BP 153/84
--- NOTE | 2025-05-10 09:03 | W.PN.VS ---
Addendum entered and electronically signed by Gael Zazueta III, MD 05/10/25 10:32:
This patient was seen and examined in collaboration with GELY Lacy. I agree with the history and physical exam as well as the assessment and plan.
Signed:
Gael Zazueta III, MD
Vascular Surgery
[facility]
Original Note:
Today's Communication / Plan
-
Plan reviewed with attending Dr. Gael Zazueta III.
Assessment/Plan
-
Assessment: 79 year old male POD#1 Endovascular repair of abdominal aortic aneurysm with bifurcated modular endoprosthesis (Voxli Zenith Flex [id number]) with bilateral iliac limb extension
Plan:
Discontinue arterial line
Discontinue IV fluids
Discontinue zazueta catheter
Continue statin and ASA 81mg PO daily as antiplatelet
Possible dc this afternoon pending patient progression
Subjective Data
-
Date of Service: May 10, 2025
Patient seen and examined, offers no complaints. Reports eagerness for dc to home. Tolerating PO diet. Denies pain at BL groins.
Objective Data
-
Vital Signs
Temp Pulse Resp BP Pulse Ox
96.6 F L 90 18 153/84 95
05/10/25 07:57 05/10/25 08:00 05/10/25 08:00 05/10/25 08:00 05/10/25 08:45
Intake and Output
05/09/25 05/10/25 05/11/25
06:59 06:59 06:59
Intake Total 2790 / 2870 640 / 640
Output Total 1640 / 1675 75 / 75
Balance 1150 / 1195 565 / 565
Intake:
Oral fluids 840 / 840 480 / 480
IV fluids (Total) 1700 / 1780 160 / 160
Normosol 100 / 100
Nss 1,000 ml @ 80 mls/hr IV . 1600 / 1680 160 / 160
[id number] VERONIQUE Rx#:[id number]
IV piggybacks 250 / 250
Output:
Urine, Zazueta 1640 / 1675 75 / 75
Lab Results
05/10/25 04:44
05/10/25 04:44
Calcium 7.5 mg/dl (8.4-10.2) L 05/10/25 04:44
Phosphorus 3.2 mg/dl (2.5-4.5) 05/09/25 09:55
Magnesium 1.7 mg/dl (1.6-2.3) 05/09/25 09:55
Physical Exam
-
No apparent distress, resting in bed comfortably
No tachycardia
No dyspnea on room air
ABD nontender and non distended
BL groin uncture site CDI, no evidence of hematoma, all surrounding compartments soft
BL feet with Doppler DP/PT, patient with baseline LE weakness, wheel chair bound unchanged from preop assessment
Zazueta draining clear yellow urine
[2025-05-10] MEDS: LOW STRENGTH ASPIRIN 81 MG PO (09:59)
[2025-05-10] MEDS: PROSCAR 5 MG PO (10:00)
--- NOTE | 2025-05-10 10:58 | PTCARENOTE ---
Pt was rec'd this am from offgoing RN in walking rounds, neurovascular checks and site checks ongoing Q1 hours, see worklist for details. Pt remains AOx3, strength and mobility of LEs at baseline, pt reports he is a Dereje lift into his wheelchair
and then is independent with ADLs at baseline. Plan of care discussed, as per vascular team, pt will possibly be for discharge later today. Orders rec'd and carried out; zazueta, arterial line, IVF dc'd at 10:00. Urinal provided, pt verbalizes
understanding to notify RN when he is able to void. Pt consumed 100% of breakfast. Family arrived at bedside to visit. Call marks in hand, safe environment continues.
--- NOTE | 2025-05-10 11:22 | CM ---
Patient receiving care. Initial assessment completed with . Patient lives with in a 1 story plus basement home with elevator from outside to inside the home, B/B on . Patient is unable to stand or walk. He is independent in ADL's and
mobility in a wheelchair. He does drive. DME is w/ch and slide board. Patient manages transfers on his own. No HC POA. Patient was in the [place]. Family believed he was exposed to Agent [place] and thus the inability to ambulate or stand. He
does have VA benefits. VA purchased the elevator and special adaptive vehicle for patient. No psychiatric hospitalizations. PCP is Dr. Thierno Mckee. Pharmacy is [facility] on [address] [facility]. in [place]. Discharge POC: Anticipate home
with no needs.
--- NOTE | 2025-05-10 11:26 | PN.CDI ---
CDI
- -
CDI:
Physician Documentation Request
Admit Date: 05/09/25 06:14
Dear Doctor ,
Please review the following and provide your response in the progress notes.
Clinical Indicators:
Pt admitted with AAA s/p EVAR
Sodium levels are as below/ Pt did get IVFs
05/09/25 05/10/25
09:55 04:44
Sodium 134 L 133 L
Based on the above, could you clarify in the progress notes, the appropriate diagnosis, if significant, that supports the above abnormalities and additional evaluation, monitoring and/or treatment rendered:
Hyponatremia
Abnormal lab value only
Other ( please specify)
Use of terms such as suspected, likely, concern for, or probable (associated with a specific diagnosis that is being evaluated, monitored, or treated as if it exists) are acceptable and can be coded in the inpatient setting, when documented at the
time of discharge.
Thank you,
Edwige Martell RN
CDI Specialist
[facility]
Please use your independent medical judgment in providing your response.
--- NOTE | 2025-05-10 11:26 | W.PN.PUL3 ---
Today's Communication / Plan
-
- Incentive spirometry
- Flying Squad Worker consult will sign off once patient is transferred out of ICU
- Resume outpatient follow-up with pulmonary clinic at [facility]
Assessment
-
P is a 79-year-old gentleman with known history of abdominal aortic aneurysm which was noted to be enlarging on surveillance imaging. Patient was referred to vascular surgery service and was felt to be a good candidate for endovascular aortic
aneurysm repair. Patient was brought to the hospital on 05/09 for the above-stated procedure and postprocedure, was admitted to ICU. Flying Squad Worker consultation was requested for further input.
Patient is 79-year-old gentleman with history of abdominal aortic aneurysm s/p EVAR (endovascular aneurysmal repair) by vascular surgery service, POD #1
Continue observation following procedure
Follow neurovascular checks per protocol
ASA, Amlodipine and statin on board
Follow BP monitoring and parameters as set by primary team
Cardiac history reviewed
Monitor on telemetry
Pain control per protocol
RASS goal 0
Known history of left lower lobe atelectasis/chronic scarring
CXR reviewed indicating no acute disease
Encouraged IS
Diet advancement per protocol
Aspiration precautions
GI prophylaxis: None
Cr at baseline, follow UO
Critical I/Os
Void trials
Replete electrolytes as needed
No signs/symptoms suspicious for infectious etiology at this time
Will observe off antibiotics for now
Follow temperatures/CBC
Hb and platelets postoperatively stable
DVT prophylaxis: Heparin, s.c.
Other medical diagnoses:
- h/o Asthmatic bronchitis and COPD. On Spiriva, PRN Albuterol. No wheezing on exam.
- Inclusion body myositis
- Hypertension, hyperlipidemia
- Palpitation with occasional PVCs
- Rosacea
- LLL focal bronchiectasis and chronic scarring/atelectasis on imaging
- H/o Smoking, quit >20 years ago
- H/o Pulmonary nodules, stable (Follows up with Dr. Galan at [facility] Pulmonary clinic) Will resume out patient follow up
- H/p STEVE. Not on CPAP at home, reportedly has lost more than 40 pounds of weight since initial diagnosis and currently not complaining of excessive somnolence.
- History of mixed obstructive and restrictive lung disease. Suspect restriction related to underlying history of inclusion body myositis and weakness along with obesity.
Total time spent on this consultation/encounter __42__ minutes which includes review of history, physical exam, medications, laboratory data, personal review of imaging, extensive review of outpatient records, discussion with care team and
respiratory therapy.
Data:
CXR 04/2025: No radiographic evidence of acute cardiopulmonary abnormality.
CT A/P 04/2025: 1. 5 cm fusiform infrarenal abdominal aortic aneurysm.
2. 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
3. Diffuse muscular atrophy.
4. Punctate calculus within the midpole of the right kidney. No hydronephrosis. Couple of small bladder calculi. Severe prostamegaly.
Spirometry 08/2015: Severe probable combined Obstructive and Restrictive Lung Disease is present.
ECHO 2015: Normal left ventricular systolic function.
Left ventricular ejection fraction is 55-60%.
Mild concentric left ventricular hypertrophy.
No mitral regurgitation is seen.
Trace tricuspid regurgitation.
No prior study available for comparison.
Subjective Data
-
Date of Service:
Date of Service: May 10, 2025
Subjective:
Patient comfortably lying in bed in no acute distress.
Review of Systems
Genitourinary: Other (All 14 systems reviewed and negative except as stated above in the history of present illness.)
Objective Data
Data Reviewed
Vital Signs / I&O / Oxygen:
Vital Signs
Temp Pulse Resp BP Pulse Ox
96.6 F L 88 16 153/84 98
05/10/25 07:57 05/10/25 10:00 05/10/25 10:00 05/10/25 08:00 05/10/25 10:00
Intake and Output
05/09/25 05/10/25 05/11/25
06:59 06:59 06:59
Intake Total 2790 / 2870 1440 / 1440
Output Total 1640 / 1675 260 / 260
Balance 1150 / 1195 1180 / 1180
SaO2 98
Nasal Cannula flow liters per 6
minute
Physical Exam
General: Comfortable
HEENT: Normocephalic
Cardiovascular: S1-S2
Respiratory: Clear and Non-Labored Respirations
GI: Soft and Non Distended
Neurology: Awake
Skin: Warm
Labs/Micro/Reports
Lab Data
05/10/25 04:44
05/10/25 04:44
Laboratory Results
05/10/25
04:44
PT 14.3
INR 1.08
APTT 33.0
--- NOTE | 2025-05-10 11:56 | PTCARENOTE ---
Pt was able to void in urinal, 150 mls slightly blood tinged urine noted.
--- NOTE | 2025-05-10 12:44 | W.DS.TRANS ---
DC Summary - Journeyman Lineman
-
Discharge Instructions:
Discharge Diagnosis/Procedures Endovascular repair of abdominal aortic aneurysm
with bifurcated modular endoprosthesis with
bilateral iliac limb extension
Diet As tolerated
Activity No strenuous activity
Driving Restrictions Not until seen by your Dr
Bathing Restrictions OK to Shower
Instructions:
Stand-Alone Forms: Vascular Surg Discharge Instr
Changes to Home Medications: Yes
Discharge Medications:
DC Medications w/original date entered in [facility]
finasteride 5 mg tablet 5 mg PO DAILY Urinary Issue 08/19/14
lisinopril 40 mg tablet 40 mg PO QPM Blood Pressure 08/19/14
atorvastatin 20 mg tablet 20 mg PO QPM High Cholesterol 08/27/15
albuterol sulfate 90 mcg/actuation aerosol inhaler 2 puff inhalation R Q8HPRN PRN sob 06/23/24
tiotropium bromide 2.5 mcg/actuation mist for inhalation (Spiriva Respimat) 2 inh inhalation HS Lung/Breathing Issues 06/23/24
albuterol sulfate 2.5 mg/3 mL (0.083 %) solution for nebulization 2.5 mg inhalation DAILY Lung/Breathing Issues 05/02/25
amlodipine 5 mg tablet 5 mg PO QPM Blood Pressure 05/02/25
aspirin 81 mg chewable tablet 81 mg PO DAILY #90 tabs 05/10/25
Home Medication Changes
Added:
aspirin 81 mg chewable tablet 81 mg PO DAILY #90 tabs 05/10/25
Pending Results: No
--- NOTE | 2025-05-10 14:44 | CM ---
Patient has been medically cleared for discharge to home with no additional skilled services. Family transported home.
== END 2025-05-10 13:56 | disposition home or self-care (01) | DRG 269 ==
LOC: ICU 06:14
PROVIDERS: Nurse Practitioner Acute Care; ADMITTING PHYSICIAN Surgery Vascular Surgery; CONSULT PHYSICIAN Internal Medicine; PRIMARYCARE PHYSICIAN Family Medicine
PROC: 04V03DZ Restriction of Abdominal Aorta with Intraluminal Device, Percutaneous Approach (ICD-10-PCS; 2025-05-09)
DX: I71.43 Infrarenal abdominal aortic aneurysm, without rupture (principal); J98.11 Atelectasis; N40.0 Benign prostatic hyperplasia without lower urinary tract symptoms; J44.89 Other specified chronic obstructive pulmonary disease; J98.4 Other disorders of lung; I10 Essential (primary) hypertension; E78.5 Hyperlipidemia, unspecified; G47.33 Obstructive sleep apnea (adult) (pediatric); I49.3 Ventricular premature depolarization; J47.9 Bronchiectasis, uncomplicated; G72.41 Inclusion body myositis [IBM]; Z87.891 Personal history of nicotine dependence; Z88.8 Allergy status to other drugs, medicaments and biological substances; Z79.82 Long term (current) use of aspirin
CPT/HCPCS: 34705; 36415; 71045; 71046; 80048; 82962; 83735; 84100; 85025; 85027; 85610; 85730; 86850; 86900; 86901; 93005; 94640; C1760; C1769; C1892; C1894; C2628

== ENCOUNTER 2025-07-28 23:12 | Inpatient (IN) | payer OTHER, SELFPAY ==
[2025-07-28] VITALS (17 sets, daily range): BP systolic 91–127; BP diastolic 51–83; BMI 24.5
--- NOTE | 2025-07-28 20:21 | ED.GENMED ---
History of Present Illness
General
Chief Complaint: Cold/Flu/URI Symptoms
Source: patient and family
Time Seen by Provider: 07/28/25 20:08
History of Present Illness
History of Present Illness:
79-year-old male with past medical history of inclusion body myositis, hypertension, hyperlipidemia, COPD, wheelchair-bound presenting to the emergency department for evaluation after daughter had brought him to urgent care for evaluation and change
in mental status, back pain and worsening mobility, at the urgent care they were unable to obtain a temperature and urine reportedly showed signs of UTI so they advised the daughter to bring patient to the ER. Here in the ER patient is without any
specific concerns, in triage she was noted to be significantly bradycardic so brought directly back into the ER. Daughter notes that the inclusion body myositis seems to be progressing and worsening, follows at the [facility] for this. Patient was
reportedly unable to get in bed last night and needed EMS to get him into bed, family was unaware of this until the morning. Daughter does note patient has been complaining of significant back pain.
Past History
Past History
ED Past Medical History: HTN, Hypercholesterolemia, Other (BPH, obesity, kidney stones) and Other (inclusion body myositis, collapsed lung,)
ED Past Surgical History: Appendectomy and Orthopedic (knee problem)
Social History
Tobacco: Former smoker
Alcohol: None
Drug: None
Personal:
Living: with family
Employment: Retired
Family History
Family History: Other (non contrib)
Review of Systems
Review of Systems
All Other Systems: ROS reviewed and negative except as documented in HPI and ROS
Phy Exam
Physical Exam
Physical Exam:
GENERAL: Alert , in no apparent distress, appears older than stated age
HEAD: Normocephalic atraumatic
EYE:
NECK: Supple, no significant adenopathy.
ENT: o/p clr, mmm.
CARDIAC: no murmur significantly bradycardic rate and rhythm
LUNGS: Clear breath sounds bilaterally, no acute respiratory distress, no wheezes/rales/rhonchi
ABDOMEN: Soft, without focal tenderness, no r/g, no cvat
NEUROLOGICAL: Alert and oriented
SKIN: Warm and dry, candidal rash under left breast, beefy red, well demarcated borders
MUSCULOSKELETAL: No edema, well perfused.
PSYCH: Normal and appropriate interaction.
Scores
Heart Failure Risk
Heart Failure Risk Score: Not Applicable
Heart Score for Chest Pain Patients
STEMI patient?: Not applicable
Withdrawal Assessment of Alcohol
Withdrawal Assessment Completed?: Not applicable
Sepsis
Sepsis Screening
Sepsis Assessment: Sepsis
Sepsis Screen
Sepsis Screen: Sepsis
Date: 07/28/25
Time: 23:43
Course
Orders/Labs/Results
Orders:
Orders
07/28/25 20:24
0.9% Sodium Chloride 1000 ml [Nss] 1,000 ml IV BOLUS
07/28/25 20:26
CT Abd/pel Without Iv Or Oral Urgent
Comment:
Reason For Exam: AMS, back pain, UTI
07/28/25 20:28
Jus Hugger [Jus Hugger-Treatment] ONCE
Patient's goal temperature:: 97 F
Additional Instructions:: Temperature and skin assessment per unit protocol
Bedside Glucose- Treatment ONCE
07/28/25 20:29
Complete Blood Count/With Diff Urgent
Comprehensive Metabolic Panel Urgent
Lactic Acid Q4H
Comment: CANCEL 2nd LACTIC ACID IF 1st LACTIC ACID IS LESS THAN 2
Magnesium Urgent
PTT Urgent
Prothrombin Time Urgent
TSH Urgent
Troponin I Urgent
07/28/25 21:06
Urinalysis Reflex To Culture Urgent
Date Specimen was Collected: 07/28/25
Time Specimen was Collected: 21:01
Urine Microscopic Reflex Cult Urgent
07/28/25 21:28
CR Chest Portable - 1 View Urgent
Comment:
Reason For Exam: hypothermia
Reason Study Needs to be Portable: Patient Unstable
07/28/25 21:46
Cefepime HCl [Maxipime] 2,000 mg IV NOW STA
07/28/25 21:51
Blood Culture Q20M
NIALL Source: Blood/Venous
Specimen Description:
Comment: Urgent from separate sites. If patient screens positive for possible sepsis
Blood Culture Q20M
NIALL Source: Blood/Venous
Specimen Description:
Comment: Urgent from separate sites. If patient screens positive for possible sepsis
07/28/25 21:55
Sterile Water [Sterile Water For Injection] 10 ml .ROUTE .STK-MED ONE
07/28/25 21:56
Vancomycin [Vancocin] 2,000 mg 0.9% Sodium Chloride 500 ml [Nss] 500 ml IV NOW
07/28/25 22:02
0.9% Sodium Chloride 1000 ml [Nss] 1,000 ml IV BOLUS
07/28/25 22:47
Admit/Transfer Patient As Directed
Co-Sign Provider:
Level of Care: Inpatient admission
Assign to:: IMU- Intermediate Care
Physician / Group: Rocio
Diagnosis: Hypothermia
Reason for Hospitalization: Hypothermia 2/2 possible sepsis
Expected length of stay greater than two midnights?: Yes
ELOS- Estimated Length of Stay in days: 2
I certify the patient meets the requirements for IP care: Yes
PRN Pain Medication Management As Directed
May give lesser potent ordered pain med per pt: Yes
preference::
Protocol:: Medication orders for pain may be administered in a
manner that supports deferring to patient preference
when the pt is:
- Requesting an ordered lesser potent pain medication.
Least to most potent pain medications are defined
as: acetaminophen < NSAID < tramadol < opioids
(morphine, oxycodone, hydromorphone).
- Requesting a lesser dose of the same medication IF
ORDERED.
- Requesting a less intrusive route of administration
if both routes are prescribed by the provider (PO <
IV).
07/28/25 22:48
Code Status As Directed
Resuscitation Status: Full Code
07/28/25 22:56
Hydrocortisone Sod Succinate [Solu-Cortef] 100 mg IV NOW STA
07/28/25 23:23
COVID-19 Antigen Stat
Source: Nasal Swab
Cortisol, Random Stat
ESR [Erythrocyte Sed Rate] Stat
Lyme Progressive Stat
Procalcitonin Stat
If negative, will antibiotics be d/c'd or not started: Yes
Does the patient have renal or hepatic impairment?: No
Any recent (w/in 48 hrs) physiologic stress (CPR, rhabdo): No
Influenza A+B Rapid Molecular Stat
NIALL Source: Nasal Swab
Specimen Description:
07/28/25 23:41
Lactic Acid Q4H
Comment: repeat q4 hours x 4 or until less than 2 mmol/L
0.9% Sodium Chloride 1000 ml [Nss] 1,000 ml IV 125 mls/hr
Acetaminophen [Tylenol/Feverall] 650 mg RECTAL Q4HPRN PRN
Acetaminophen [Tylenol] 650 mg PO Q4HPRN PRN
Albuterol [ProAIR HFA INHALER] 2 puff INH R Q8HPRN PRN sob
Ondansetron Injectable [Zofran] 4 mg IV Q6HPRN PRN
VANCOMYCIN Pharmacy to Dose [VANCOCIN Pharmacy to Dose] 1 each Pharmacy To Prepare [Call Pharmacy To Prepare] 0 ml IV PER PROTOCOL
07/28/25 23:41
Echo 2D MMode Color/Doppler Routine
Reason for Study: bradycardia
CARDIOLOGY CONSULT Routine
Consulting Provider: Enrique Moore
Was physician already notified: Yes
Reason for consult: bradycardia
Activity As Directed
Activity Level: With Assistance
Intake/ Output As Directed
Frequency: Per unit guidelines
Vital Signs As Directed
Frequency: Per unit guidelines
Pulse Ox/cont/shift [RESP] Routine
Quantity: 1
Special Instructions: continuous pulse ox
DX Deep Vein Thrombosis Video Routine
07/29/25 00:00
Heparin 5,000 units SC Q8
07/29/25 00:30
Lactic Acid Q4H
Comment: CANCEL 2nd LACTIC ACID IF 1st LACTIC ACID IS LESS THAN 2
07/29/25 03:41
Lactic Acid Q4H
Comment: repeat q4 hours x 4 or until less than 2 mmol/L
07/29/25 03:45
Cefepime HCl [Maxipime] 1,000 mg IV Q6H
07/29/25 05:00
Hydrocortisone Sod Succinate [Solu-Cortef] 50 mg IV Q6
07/29/25 06:00
Electrocardiogram (*1) IN AM
Reason for Study: Bradycardia / Tachycardia
Regular
CRP [C-Reactive Protein] IN AM
Complete Blood Count/No Diff IN AM
Cortisol, Random IN AM
ESR [Erythrocyte Sed Rate] IN AM
Free T3 IN AM
Free T4 IN AM
Glycohemoglobin (HgbA1c) IN AM
Protime/PTT IN AM
07/29/25 07:41
Lactic Acid Q4H
Comment: repeat q4 hours x 4 or until less than 2 mmol/L
07/29/25 08:00
Albuterol Nebs [Ventolin Nebules] 2.5 mg INH DAILY
Aspirin Chewable [Low Strength Aspirin] 81 mg PO DAILY
Finasteride [Proscar] 5 mg PO DAILY
Pantoprazole [Protonix IV] 40 mg IV DAILY
07/29/25 11:41
Lactic Acid Q4H
Comment: repeat q4 hours x 4 or until less than 2 mmol/L
07/29/25 18:00
Atorvastatin [Lipitor] 20 mg PO QPM
07/29/25 22:00
Tiotropium [place] 2.5 Mcg [Spiriva Respimat 2.5 Mcg] DOSE puff INH HS
Abnormal Lab Results
07/28/25 07/28/25
20:29 21:06
RBC 4.64 L 10^6/uL
(4.70-6.10)
MCHC 32.3 L g/dL
(33.0-37.0)
RDW 16.4 H %
(11.5-14.5)
Plt Count 99 L 10^3/uL
(130-400)
MPV 12.1 H fL
(7.4-10.4)
Lymphocytes % 18.2 L %
(20.5-51.1)
Sodium 131 L mmol/L
(135-145)
Chloride 97 L mmol/L
(98-107)
Carbon Dioxide 32 H mmol/L
(22-30)
BUN 31 H mg/dl
(9-20)
Glucose 151 H mg/dl
(70-99)
ALT 64 H U/L
(0-50)
TSH 5.65 H uIU/ml
(0.47-4.68)
Ur Occult Blood Reflex 1+ A
(Negative)
Urine RBC 7-10 A /HPF
(0-2)
Urine Bacteria (Reflex) Few A
(Negative)
Urine Glucose 1+ A
(Negative)
Urine Albumin (Reflex) 2+ A
(Neg - Trace)
07/28/25 20:29
07/28/25 20:29
Vital Signs
Initial and Last Documented VS:
Initial Vital Signs
Pulse Resp BP Pulse Ox
34 12 127/73 99
07/28/25 20:07 07/28/25 20:07 07/28/25 20:07 07/28/25 20:07
Last Documented Vital Signs
Temp Pulse Resp BP Pulse Ox
94.6 F L 40 15 103/53 96
07/28/25 23:29 07/28/25 23:15 07/28/25 22:46 07/28/25 23:00 07/28/25 23:15
MDM/Problems Addressed
Differential Diagnosis Includes:
Sepsis
Heart Block
UTI
Pneumonia
CVA/TIA
Kidney stone
Progression of chronic disease
MDM/Problems Addressed:
79-year-old male presenting to the ER for evaluation of possible urinary tract infection. At urgent care was found to have an unobtainable temperature, recommended to come to the ER. While in triage it was noted patient had a heart rate in the low
30s, brought back into the ER with EKG obtained, clinical concern for possible third-degree heart block. Discussed case via [place] text with on-call ecommerce marketing specialist, Dr. Moore, who believes this is more likely a Mobitz 1 with intermittent Mobitz 2
episodes. Recommends keeping patient on pacer pads and he will see in consultation tomorrow morning for possible pacemaker. Given the hypothermia as well as the questionable urinary tract infection I do have concern for possible septic etiology.
Given the back pain will obtain a CT to rule out infected kidney stone. Patient to be admitted.
Chronic conditions affecting care: Other (Inclusion body myositis)
*Pulse Oximetry
SaO2: 99
Oxygen Mode of Delivery: Room air
Patient hypoxic: no
*EKG
Heart Rate: 44
Rate: bradycardiac
Rhythm: sinus
Interval: second degree mobitz II
*Airborne Sensor Specialist Interpretation
Rate: bradycardiac
Heart Rate: 38
Rhythm: sinus
*Critical Care Note
Total Time (30-74mins, 75-104mins- exclusive of procedures): Not Applicable
Data Reviewed
Review of Other/Old Records Reveals: Labs, Records and Discharge Summary
Source: patient and family
Patient Management
Discussion with other providers: Hospitalist and Collections And Archives Director
Escalation/DeEscalation of care consider admission/obs:
At this time clear etiology for patient's hypothermia. His chest x-ray is without any abnormal pathology, CT of the abdomen pelvis is normal, labs overall reassuring. I did start broad-spectrum antibiotics for possible infectious etiology. Plan
to admit for further workup. Hospitalist team is aware. Cardiology to see patient in consult
ED Attending Note
-
Portions of this chart may have been created with voice recognition software.� Occasional wrong word or��sound alike� substitutions may have occurred due to the inherent limitations of voice recognition software.
Discharge Plan
Departure
Patient Disposition: Admit
Date of Disposition: 07/28/25
Time of Disposition: 21:48
Presentation/result/management discussed w/ accepting MD/DO: Hospitalist
Discharge Problem:
Hypothermia, Bradycardia
Interventions
Interventions:
*Risk Screen - Suicide Last Done: 07/28/25 20:07
*General Assessment Last Done: 07/28/25 20:07
*Neglect/Abuse Screening Last Done: 07/28/25 20:07
*ED COVID-19 Vaccine History Last Done: 07/28/25 20:07
*ED Influenza Vaccine History Last Done: 07/28/25 20:[address]
[facility] Fall Risk Assessment Tool Last Done: 07/28/25 19:48
ED- Pulmonary Assessment Last Done: 07/28/25 20:38
[2025-07-28 20:47] LABS: Hematocrit 41.8 % (39.0-52.0); Hemoglobin 13.5 g/dL (13.0-18.0); Mean Corp Hgb Conc. 32.3 g/dL (33.0-37.0); Mean Corpuscular Volume 90.1 fL (80.0-94.0); Nucleated Red Blood Cells % 0.3 % (-); Red Cell Dist. Width 16.4 % (11.5-14.5)
[2025-07-28 20:51] LABS: APTT 34.9 Sec (23.4-35.0); INR 1.09; PT 13.9 Sec (11.4-14.6)
[2025-07-28 21:02] LABS: ALT (SGPT) 64 U/L (0-50); AST (SGOT) 55 U/L (17-59); Albumin 4.0 g/dl (3.5-5.0); Alkaline Phosphatase 103 U/L (38-126); Blood Urea Nitrogen 31 mg/dl (9-20); Calcium 8.6 mg/dl (8.4-10.2); Carbon Dioxide 32 mmol/L (22-30); Chloride 97 mmol/L (98-107); Estimated Creatinine Clearance 68 ml/min; Glucose 151 mg/dl (70-99); Magnesium 2.0 mg/dl (1.6-2.3); Potassium 4.6 mmol/L (3.5-5.1); Sodium 131 mmol/L (135-145); Total Protein 6.8 g/dl (6.3-8.2); eGFR > 60.00
[2025-07-28] MEDS: NSS 1000 IV ×2 (21:03→22:03)
[2025-07-28 21:11] LABS: Troponin I 0.013 ng/ml
[2025-07-28 21:11] LABS: Urine Character Clear (Clear)
[2025-07-28 21:31] LABS: Platelet Count 99 10^3/uL (130-400)
[2025-07-28 21:32] LABS: TSH 5.65 uIU/ml (0.47-4.68)
[2025-07-28 21:49] LABS: Urine Squamous Cell 0-2 /LPF (Few); Urine Urothelial Cell 0-2 /LPF (FEW)
[2025-07-28] MEDS: MAXIPIME 2000 MG IV (22:05)
--- NOTE | 2025-07-28 22:21 | HPS.HSE ---
Family Physician
-
Family Physician: Thierno Mckee
Chief Complaint
-
Weakness, chills and altered mental status
History of Present Illness
Patient is a 79-year-old who has a past medical history significant for infrarenal abdominal aortic aneurysm who was recently status post endovascular repair with a bifurcated medulla endoprosthesis without complication in April, history of
inclusion body myositis, hypertension, hyperlipidemia, COPD, wheelchair dependence who presents to the emergency department for evaluation after daughter took him to urgent care for altered mental status as well as worsening mobility.
Patient and family reported that they had some change in mental status starting about 2 to 3 days ago. He was not answering correctly as he usually does. Family also noticed increased weakness over that time. Usually is able to transfer himself
from wheelchair to bed however he has been requiring assistance with family members for the last 2 to 3 days and starting last night even with family assistance he was unable to get in bed. They had to call EMS to transfer him to bed last night and
also to transfer him from bed to wheelchair this morning. Patient reports some back pain but denies any urinary symptoms. He denies any hematuria. He has no nausea vomiting and denies any diarrhea. He denies any headache. He denies any neck
pain or stiffness. He denies any blurry vision or double vision and he has no focal neurological deficits.
He was taken to urgent care for evaluation and while at urgent care they could not obtain a temperature, urine reportedly showed signs of a urinary tract infection.
The patient is himself without any specific complaint. While in triage he was noted to be bradycardic so brought back to the ER. Patient was reportedly unable to get in bed last night and needed EMS to get him into bed, family was unaware of this
until the morning. Daughter does note patient has been complaining of significant back pain.
In the emergency department he is measured temperature rectally was 91, blood pressure 93/53 with a pulse rate of 33 and he was satting 96% on room air. Chest x-ray shows no acute infiltrates. ECG with sinus bradycardia and intermittent heart
block.
Troponin was 0.013, TSH was elevated at 5.65. Lactic acid was negative. UA was unremarkable. CBC notable for thrombocytopenia to 99 from baseline 163 otherwise unremarkable. Sodium was 131 electrolytes otherwise unremarkable. BUN and creatinine
were normal.
CT of the abdomen and pelvis showing:No renal or ureteral calculus. No bladder calculus. No obstructive uropathy. Stable renal cysts. Stable mild chronic perinephric soft tissue stranding.
Constipation. No bowel obstruction.
No acute inflammatory process within the abdomen or pelvis.
No vertebral compression deformity. No CT evidence to suggest discitis or osteomyelitis. Mild degenerative changes.
Previous endovascular aortic stent graft repair, with stable [place] aneurysm sac.
Medical History
Past Medical History
Past Medical History: Reports Other (BPH, kidney stones, inclusion body myositis, collapsed left lung, hypertension, hypercholesterolemia)
Past Surgical History: Reports Other (Appendectomy)
Social History
Tobacco: Former Smoker (Has not smoked in 40 years.)
Alcohol: None
Drug: None
Personal:
Living: With Family
Family History
Family History: Not pertinent
Allergies / Home Medications
Allergies reflects when Allergies were last updated in [facility].
Home Medications with original date entered in [facility]
Allergy/Medication List:
Allergies
Allergy/AdvReac Type Severity Reaction Status Date / Time
Beta-Blockers Allergy Unknown Unknown Verified 09/02/15 15:40
(Beta-Adrenergic Bloc
Home Medications
finasteride 5 mg tablet 5 mg PO DAILY 08/19/14
lisinopril 40 mg tablet 40 mg PO HS 08/19/14
atorvastatin 20 mg tablet 20 mg PO QPM 08/27/15
albuterol sulfate 90 mcg/actuation aerosol inhaler 2 puff inhalation R Q8HPRN PRN sob 06/23/24
budesonide-formoterol HFA 160 mcg-4.5 mcg/actuation aerosol inhaler (Symbicort) 1 inh inhalation R BIDPRN PRN sob 06/23/24
docusate sodium 100 mg capsule 200 mg PO QPM 06/23/24
ibuprofen 200 mg tablet (Advil) 400 mg PO DAILYPRN PRN mild pain 06/23/24
tiotropium bromide 2.5 mcg/actuation mist for inhalation (Spiriva Respimat) 2 inh inhalation R DAILY 06/23/24
Review of Systems
-
Constitutional: Reports No Symptoms
EENT: Reports No Symptoms
Respiratory: Reports No Symptoms
Cardiac: Reports No Symptoms
Abdomen/GI: Reports No Symptoms
: Reports No Symptoms
Musculoskeletal: Reports No Symptoms
Skin: Reports No Symptoms
Neurological: Reports No Symptoms
Endocrine: Reports No Symptoms
Hematologic/Lymphatic: Reports No Symptoms
Psych: Reports No Symptoms
Physical Exam
Vital Signs
Vital Signs
Temp Pulse Resp BP Pulse Ox
91.9 F L 33 14 93/51 96
07/28/25 22:09 07/28/25 22:00 07/28/25 21:45 07/28/25 22:00 07/28/25 22:00
Physical Exam
General: Well Developed and Well Nourished
HEENT: NormoCephalic, Anicteric, Moist mucous membranes, PERRLA and Neck Nontender; No Neck Mass or Thyromegaly
Respiratory: Clear and Decreased Breath Sounds (Bilateral bases); No Rales or Rhonchi
Cardiac: S1/S2 and Bradycardia
GI: Soft, Non Tender and Non Distended
Rectal: Deferred by Provider
Genito-urinary: Baltazar (Clear urine)
Musculoskeletal: No Clubbing, No Cyanosis, Edema, Left Lower Extremity and Edema, Right Lower Extremity
Skin: Warm
Neuro: AO x 3 and Nonfocal/grossly intact
Hematologic/Lymphatic: No Lymphadenopathy
Psych: Calm
Laboratory Results
-
07/28/25 20:29
07/28/25 20:29
Laboratory Results
PT 13.9 Sec (11.4-14.6) 07/28/25:
INR 1.09 07/28/25:
APTT 34.9 Sec (23.4-35.0) 07/28/25:
Lactic Acid 1.5 mmol/L (0.7-2.0) 07/28/25
Total Bilirubin 0.7 mg/dl (0.2-1.3) 07/28/25:
AST 55 U/L (17-59) 07/28/25
ALT 64 U/L (0-50) H 07/28/25
Alkaline Phosphatase 103 U/L (38-126) 07/28/25
Troponin I 0.013 ng/ml 07/28/25:
Data Reviewed
-
Diagnostic Radiology: Image Personally Visualized and interpreted and Report Reviewed by me
CT Scan: Report Reviewed by me
Medical Tests (Nuc Med, Echo, EKG etc): Image Personally Visualized and interpreted
Lab Data: Labs Reviewed by me
Old Records: Reviewed
Impression/Plan
-
IMPRESSION:
79-year-old with history of inclusion body myositis, hypertension, obstructive sleep apnea, hyperlipidemia COPD not on home O2, wheelchair dependent presenting to the emergency department with weakness altered mental status and found to be
hypothermic to 90 �F, bradycardic to the 30s but remains hemodynamically stable to blood pressure in the 90s systolic. Lactic acid was negative. His labs are mostly unremarkable. He has no leukocytosis, he does have mild thrombocytopenia to 99.
ECG consistent with sinus bradycardia and Mobitz type I block. He is currently undergoing active warming measures with a warming blanket with improvement in temperature now to 92 �F and bradycardia has improved to the 40s to 50s.
PLAN:
Hypothermia -presumed sepsis bradycardia secondary to unknown source at this time. Urine, abdomen and chest are unremarkable stop he is currently alert and oriented x 2 and shows no meningeal signs or signs of encephalitis. Source that is not
excluded right now include a bloodstream infection or endocarditis. Additional etiology of hypothermia includes hypothyroidism which is less likely versus an acute adrenal insufficiency
- Admit to IMU
- Blood culture sent
� Additional studies including CRP, ESR
� Check viral panel
� Will start empiric antibiotics with vancomycin and cefepime for now
� ID consultation
� Check random cortisol
� Will start stress dose steroids with IV Solu-Cortef for now
� Continue IV fluids
� Continue warming measures
Bradycardia -sinus bradycardia Mobitz 1 second-degree AV block. Patient is not on any blockers
� Will check Lyme titers
� TSH is elevated, but suspect this may be secondary rather than primary etiology, will check free T4 and T3
� Cortisol and stress dose steroids
� Echo in a.m.
- Cardiology consulted and notified
Hypertension
� Hold antihypertensives for now, restart once stable given history of AAA s/p repair
AAA s/p repair
� Continue aspirin and statin
- Continue antihypertensives once tolerated
STEVE
� no longer on cpap, monitor pulse oximetry
COPD
-Stable, continue albuterol and Spiriva
DVT prophylaxis�heparin subcu
CODE STATUS�full code
[2025-07-28] MEDS: VANCOCIN 540 MG IV (22:25)
[2025-07-28] MEDS: SOLU-CORTEF 100 MG IV (23:31)
[2025-07-28 23:50] LABS: COVID-19 Antigen Negative (Negative)
[2025-07-29] VITALS (25 sets, daily range): BP systolic 98–132; BP diastolic 43–87; BMI 24.9
[2025-07-29 00:06] LABS: Procalcitonin < 0.05 ng/ml (0.0-0.25)
[2025-07-29 00:21] LABS: Cortisol, Random 9.5 ug/dl
[2025-07-29] MEDS: HEPARIN SC ×4 (00:29→23:48)
[2025-07-29] MEDS: NSS 1000 IV ×2 (01:25→08:38)
[2025-07-29] MEDS: MAXIPIME 1000 MG IV ×2 (04:06→10:17)
[2025-07-29] MEDS: STERILE WATER FOR INJECTION 10 ML IV ×2 (04:08→10:18)
[2025-07-29] MEDS: SOLU-CORTEF 50 MG IV (04:08)
[2025-07-29 04:37] LABS: Hematocrit 35.0 % (39.0-52.0); Hemoglobin 11.4 g/dL (13.0-18.0); Mean Corp Hgb Conc. 32.6 g/dL (33.0-37.0); Mean Corpuscular Volume 87.9 fL (80.0-94.0); Platelet Count 94 10^3/uL (130-400); Red Cell Dist. Width 16.0 % (11.5-14.5)
[2025-07-29 04:46] LABS: APTT 35.1 Sec (23.4-35.0); INR 1.08; PT 13.8 Sec (11.4-14.6)
[2025-07-29 05:07] LABS: C-Reactive Protein 10.00 mg/L (0.0-10.00)
[2025-07-29 05:26] LABS: Free T3 2.44 pg/ml (2.77-5.27)
[2025-07-29 06:21] LABS: Cortisol, Random > 123.0 ug/dl
[2025-07-29] MEDS: VENTOLIN NEBULES 2.5 MG INH (08:37)
--- NOTE | 2025-07-29 08:40 | W.PN.UPDATE ---
Update Note
Progress Note Update
Seen and examined the patient with the resident. Agree with the plan formulated together. See changes in my documentation
79-year-old male was found to have altered mental status, hypothermia and bradycardia generalized weakness
CT abdomen pelvis-no ureteral calculus, bladder calculus or obstructive uropathy. Constipation. No acute inflammatory process in the abdomen. Previous endovascular aortic graft repair.
EKG reviewed by me-Mobitz type II heart block with bradycardia rate 44
EKG 07/28/2025-morning looks like Mobitz type I with a rate of 73 bpm
On examination awake alert oriented x 3
Cardiovascular S1-S2 appreciated normal
Chest clear to auscultation
Left breast fold with fungal rash
Abdomen soft and nontender
Baltazar catheter
Bilateral foot drop bilateral leg edema
Patient cannot raise his arms or legs proximal muscle weakness noted distal muscles with minimal strength
# Hypothermia unclear reason
No clear source of infection
Admitted to rule out sepsis
CRP and sed rate are normal
Blood cultures sent
Patient started on vancomycin and cefepime empirically
ID has been consulted
# Visual hallucination-check head CT. Watch.
# Bradycardia
First EKG showed intermittent Mobitz type II but second EKG is Mobitz type I and heart rate has improved.
Not on any rate controlling agents as outpatient
Mild elevation in TSH with slightly low A4-[id number] is not likely reason
Cortisol level was stable
Lyme study pending
Echocardiogram ordered
Cardiology is been consulted
# Mild thrombocytopenia
# History of hypertension-hold antihypertensives-Norvasc and lisinopril
# History of AAA repair-continue aspirin and statin
# Sleep apnea-no longer on CPAP
# COPD-continue albuterol and Spiriva
# History of left lower lobe focal bronchiectasis and chronic scarring
# History of pulmonary nodules follows up with Dr. Galan
# Hyperlipidemia-continue atorvastatin
# History of inclusion body myositis-uses a wheelchair/scooter
# Enlarged prostate-continue finasteride
# Ex-smoker
# DVT prophylaxis-subcutaneous heparin
# Full code
Discussed with ER nursing at bedsid
Discussed with patient's and also patient's son at bedside
Discussed with cardiology
Unclear why a Baltazar catheter was placed.
Part of this note was created using voice recognition system. Occasional wrong word or��sound alike� substitutions may have inadvertently occurred due to the inherent limitations of voice recognition software. If noted kindly bring it to my
attention for correction.
[2025-07-29] MEDS: NSS (PRESERVATIVE FREE) 10 ML IV (08:57)
[2025-07-29] MEDS: LOW STRENGTH ASPIRIN 81 MG PO (08:57)
[2025-07-29] MEDS: PROTONIX IV 40 MG IV (08:57)
[2025-07-29] MEDS: PROSCAR 5 MG PO (08:57)
--- NOTE | 2025-07-29 09:01 | CON.CAR ---
Addendum entered and electronically signed by Devon Lee MD 07/29/25 12:37:
79-year-old man admitted with inclusion body myositis now with change in mental status associated with hypothermia and second-degree heart block, bradycardia, currently with heart rates in 60s.
PMH/PSH: Inclusion body myositis, wheelchair-bound, hypertension, hyperlipidemia, COPD, obstructive sleep apnea, endovascular repair of abdominal aortic aneurysm, LINQ monitor at end of service, agent orange exposure, obesity
Current meds: Albuterol, aspirin 81 mg a day, atorvastatin 20 mg a day, finasteride, Spiriva, subcu heparin, pantoprazole, cefepime, vancomycin
115/54, pulse 63, respiratory rate 16 afebrile, temp now 36.6., Temp was 32.3 on presentation, weight is 82 kg, awake alert, pleasant somewhat slow to respond, family says he is not at baseline, crackles in right lung base, soft systolic murmur,
irregular, nontachycardic, JVD probably around 8-10, abdomen benign extremities with loss of muscle mass and edema distal pulses intact, motor weakness throughout
Hemoglobin is 11.4, white count down to 7.5, differential is unremarkable, sodium 134, BUN and creatinine are 29 and 1.0, lactic acid is 0.6, ALT is 64, troponin is 0.013, TSH is 5.65, free T4 is 1.23, free T3 is low
ECG #1 sinus bradycardia with Wenckebach AV block, subtle Frey waves
ECG #2 normal sinus rhythm still with AV block but ventricular rate of 73
Impression:
Mobitz type I second-degree AV block related to hypothermia and possibly in part related to conduction abnormalities of inclusion body myositis
Inclusion body myositis, currently wheelchair-bound
Infrarenal abdominal aortic aneurysm status post endovascular repair April 2025
Hypertension
Hyperlipidemia
COPD
Sleep apnea
History of agent orange exposure
Obesity
Plan:
He presents with initial sinus bradycardia and Mobitz type I second-degree AV block in the setting of hypothermia and underlying inclusion body myositis. He has subtle Mejia waves on the initial EKG consistent with hypothermia. With rewarming,
he persists with second-degree AV block but sinus rate has increased and AV block has become less frequent. Hypothermia is probably the precipitating event. Inclusion body myositis can rarely be associated with conduction abnormalities and so
could also be playing a role.
His troponin is detectable but only minimally above detectable limits, would not pursue further. TSH is minimally elevated, probably cannot account for hyperthermia. T3 levels may be unreliable.
Continue to avoid AV giulia blocking agents
At this point nothing other than supportive care is required. We will check an echocardiogram. He should have an outpatient monitor and should follow-up to his primary [facility] Dr. Hopper.
Original Note:
Consultation
Consultation Request
Date/Time Consultation Performed: 07/29/25
Requesting Provider: Dr. Chan
Performing Provider: Nerissa Begum PA-C for Dr. FERNANDO Lee
Reason for Consultation: bradycardia
Medical History
-
Chief Complaint: change in mental status
History of Present Illness:
Patient is a 79-year-old male with past medical history of inclusion body myositis with wheelchair dependence, hypertension, hyperlipidemia, COPD, STEVE on CPAP, infrarenal abdominal aortic aneurysm status post endovascular repair with bifurcated
Medela endoprosthesis 04/2025, who presented to [facility] ER due to altered mental status. Patient's daughter at bedside provides most of history. She states that over the last several days he was noted to have worsening confusion as well as worsening
weakness. She took him to urgent care as she had done a urine dip at home which suggested possible UTI. While at urgent care, staff was not able to register a temperature and so referred him to the emergency room. On arrival to ER noted to be
hypothermic, and also bradycardic. On review of telemetry, was noted to have Wenckebach and 2-1 AV block, but presently in sinus rhythm with heart rates in 60s. Cardiology consulted for evaluation. No complaints of CP, SOB, palpitations,
lightheadedness, presyncope/syncope. He does have a prior Linq monitor in place as of 2015 as he had been having 2 to 3-second pauses and his atenolol was stopped as a result. His Linq is no longer working
PMH:
Inclusion body myositis
Ambulatory dysfunction/wheelchair dependence
Hypertension
Hyperlipidemia
COPD
STEVE on CPAP
Infrarenal abdominal aortic aneurysm status post endovascular repair 04/2025
History of pauses status post Linq monitor 2015, now nonfunctional
History of agent orange exposure
Obesity
Past Medical History
Past Medical History: Other (In HPI)
Social History
Tobacco: Former Smoker
Alcohol: None
Personal:
Living: With Family
Family History
Family History: CAD
Allergies / Home Medications
Allergy/AdvReac Type Severity Reaction Status Date / Time
Beta-Blockers Allergy pt states Verified 07/28/25 23:42
(Beta-Adrenergic Bloc was told
not to
take them
�Medication �Instructions �Recorded �Confirmed �Type
finasteride 5 mg tablet 5 mg PO DAILY Urinary Issue 08/19/14 07/29/25 History
lisinopril 40 mg tablet 40 mg PO QPM Blood Pressure 08/19/14 05/09/25 History
atorvastatin 20 mg tablet 20 mg PO QPM High Cholesterol 08/27/15 07/29/25 History
albuterol sulfate 90 mcg/actuation 2 puff inhalation R Q8HPRN PRN sob 06/23/24 07/29/25 History
aerosol inhaler (Ventolin HFA)
albuterol sulfate 2.5 mg/3 mL 2.5 mg inhalation R Q6HPRN PRN sob 05/02/25 07/29/25 History
(0.083 %) solution for nebulization
amlodipine 5 mg tablet 5 mg PO QPM Blood Pressure 05/02/25 07/29/25 History
aspirin 81 mg chewable tablet 81 mg PO DAILY #90 tabs 05/10/25 07/29/25 Rx
tiotropium 2.5 mcg-olodaterol 2.5 2 puff inhalation R DAILY 07/29/25 07/29/25 History
mcg/actuation mist for inhalation
(Stiolto Respimat)
Review of Systems
-
History Source: Patient and Family
All other systems: Negative unless noted
Physical Exam
Vital Signs
Temp Pulse Resp BP Pulse Ox
99.0 F 67 16 117/52 96
07/29/25 08:00 07/29/25 08:38 07/29/25 08:38 07/29/25 08:00 07/29/25 08:38
Lab Results
07/29/25 04:21
Troponin I 0.013 ng/ml 07/28/25 20:29
Physical Exam
General: No Apparent Distress, Comfortable and Other (on supp O2)
HEENT: Normocephalic, Anicteric and Moist Mucous Membranes
Respiratory: Clear and Non Labored Respirations
Cardiac: S1/S2 and Regular Rhythm
GI: Soft, Non Tender, Non Distended and Normal Bowel Sounds
Musculoskeletal: No Clubbing, No Cyanosis and Edema (2+ of B/L LE)
Skin: Warm and Dry
Neuro: AO x 3
Impression / Plan
-
Primary Miner Assistant: Dr. Hopper of [facility]
Assessment:
Presentation with change in mental status
Weakness
Concern for UTI
Hypothermia
Transient 2:1 AV block and Wenckebach, improved
PACs
Inclusion body myositis
Ambulatory dysfunction/wheelchair dependence
Hypertension
Hyperlipidemia
COPD
STEVE on CPAP
Infrarenal abdominal aortic aneurysm status post endovascular repair 04/2025
History of pauses status post Linq monitor 2016, now nonfunctional
History of agent orange exposure
Obesity
ECHO 2016: EF 55 to 60%, mild concentric LVH, no significant valvular disease
Plan:
- Patient presents with change in mental status and weakness. There was initial concern from family for UTI. Noted to be hypothermic at urgent care so referred to ER
- Temperature on arrival was 90.2F. Patient warmed, and most recent temperature 99F.
- Initial rhythm on arrival noted to be wenckebach with intermittent AV block. Rhythm appears to have improved with improvement in temperature. Present rhythm on tele appears sinus with PACs with HRs in 60s. follow rhythm
- not on av giulia blocking agents as OP, continue to avoid
- check TSH
- echo pending, last from 2015 with results as above
- work up for possible underlying infectious process
- no present clear indication for permanent PPM
- Noted to have lower extremity edema and some swelling of hands. CXR without evidence of CHF. Presently receiving IV fluid at 125 cc/h, would decrease/stop as able. Lactic acid was 0.6
- will request records from primary [facility] for review
- d/w ER nurse. d/w hospitalist. d/w patient, , son, and daughter at bedside.
Data Reviewed
-
EKG: Tracing Personally Visualized and interpreted
Radiology: Report Reviewed by me
Medical Tests (Nuc Med, Echo etc): Report Reviewed by me
Labs: Labs Reviewed by me
Old Records: Reviewed
[2025-07-29 09:12] LABS: Blood Urea Nitrogen 29 mg/dl (9-20); Calcium 7.6 mg/dl (8.4-10.2); Carbon Dioxide 25 mmol/L (22-30); Chloride 108 mmol/L (98-107); Estimated Creatinine Clearance 68 ml/min; Glucose 78 mg/dl (70-99); Potassium 4.6 mmol/L (3.5-5.1); Sodium 134 mmol/L (135-145); eGFR > 60.00
--- NOTE | 2025-07-29 09:46 | PHA.VAN.IN ---
Assessment
- Assessment
Renal Function: SCR Appears Elevated from baseline (SCR 1 vs 0.4-0.6)
Concomitant Antimicrobials: cefepime
Plan
- Plan
Initial / Loading Dose: 2000mg - 07/28 22:25
Maintenance Regimen: dosing by level
Monitoring: random 07/30 06
SCR currently about double prior baseline - unclear if any impaired vanc clearance at this time
Vanc 750mg Q12H predicts AUC 443, peak 25.2, trough 12.9
Will hold off on scheduling dosing in case patient has ODIN
Give 500mg x1 now then 750mg x1 at 2000 with random in AM to assess potential for Q12H interval
Pharmacokinetics Vancomycin I
- -
Patient Age: 79
Patient Sex: Male
Vancomycin Day #: 1
Indication: Bacteremia
Requesting Provider: Dr. Chan
Pertinent Antimicrobial Allergies:
no pertinent antibiotic allergies
Height / Weight:
Height 6 ft
Actual Weight 82 kg
- Vital Signs / Lab Results
Temp Pulse Resp BP Pulse Ox
99.0 F 65 17 126/63 97
07/29/25 08:00 07/29/25 09:00 07/29/25 09:00 07/29/25 09:00 07/29/25 09:00
Lab Results - Hematology
07/28/25 07/29/25
20:29 04:21
WBC 7.1 7.5
Lab Results - Chemistry
07/28/25 07/29/25
20:29 08:49
BUN 31 H 29 H
Creatinine 1.0 1.0
Estimated Creat Clear 68 68
Albumin 4.0
07/28/25 07/28/25 07/29/25
20:29 23:41 00:18
Lactic Acid 1.5 Cancelled 0.6 L
07/29/25 07/29/25
04:21 08:49
Lactic Acid 0.6 L 0.6 L
Lab Results - Urine
07/28/25
21:06
Urine Nitrite (Reflex) Negative
Leukocyte Esterase Rfl Negative
Urine WBC (Reflex) 3-5
Ur Squamous Epith Cells 0-2
Urine Bacteria (Reflex) Few A
Microbiology Results
07/28/25 23:23 Influenza Types A & B (GIDEON) - Final
Nasal Swab Negative for Influenza A & B, NAAT
Negative results must be combined with clinical observations
and patient history.
Nucleic Acid Amplification test (NAAT)performed on the
[employer] platform.
[2025-07-29 10:43] LABS: Glycohemoglobin (HgbA1c) 5.3 % (4.0-5.9)
[2025-07-29] MEDS: VANCOCIN HCL 500 MG 100 IV (11:10)
[2025-07-29] MEDS: DESENEX/MITRAZOL/ZEASORB 1 APPLIC TOPICAL ×2 (11:11→20:34)
--- NOTE | 2025-07-29 11:43 | CM ---
Chart reviewed.
Spoke with patient, Christine, son Shorty and dtr Essie at ED bedside
Dtr Essie works at
Lives in a 1SH with
Has [facility] benefits
w/c bound for 11 years
Self transfers from bed to w/c via a sliding board
[facility] with [facility]
Dtr is in the process of getting a pan lift
PCP Dr. Thierno Mckee
RX plan yes
Pharmacy [facility]N via [facility]
SNF none
DCP is to go home with current [facility] services
CM will continue to follow up for any dcp needs
--- NOTE | 2025-07-29 13:36 | CON.ID ---
Addendum entered and electronically signed by Purnima Askew MD 07/29/25 15:47:
I personally performed a history and physical exam of the patient and discussed management with the resident. I reviewed the resident's note and agree with most of the documented findings and plan of care HPI/CC.
History obtained from the patient, and daughter at bedside. He is a 79-year-old male history of inclusion body myositis not on tx, wheelchair-bound, COPD, implanted loop recorder, recent AAA EVAR 05/09/25 who presented to the ER 07/28 due to several
day history of weakness and mental status change. In the ED lowest temperature 90.2, he was bradycardic with pulse in the 30s. UA only 3�5 WBC, chest x-ray negative, Lyme screen pending, blood cultures pending. CT abdomen and pelvis without
contrast unremarkable. Hypokalemia and bradycardia improved with warming blanket. Patient denies headache, sore throat, sinus congestion. Patient denies cough or shortness of breath. No chest pain. No nausea, abdominal pain, or diarrhea. No
urine symptoms. No rash. Had episode of low back pain yesterday, now resolved. No ill contacts. No pets. No tick exposure since he does not venture out in vegetative areas. He is feeling better today.
Exam:
NAD, chest CTAB, CV RRR, S1, S2, no murmur
ABD: nontender, non distended
: zazueta clear urine. no CVA tenderness
Ext: no edema
Skin: left breast fold large ellipitical erythema with scales and satellite lesions
A/P
# Hypothermia
# Bradycardia/Type 2 AV block
# Low free T3
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
# Recent AAA EVAR 05/09/25
- No infectious etiology identified to date.
No focal symptoms.
COVID/influenza neg
UA neg. CXR neg.
CT a/p unremarkable.
Head CT small chronic subdural hematoma
No clinical history of tick exposure.
- Blood cx's pending.
- DC Vanco/cefepime and observe.
-Monitor temps
- From ID standpoint, can place PPM if necessary.
# Left breast intertrigo candidiasis
- Continue topical antifungal.
Original Note:
Consultation
-
Date/Time Consultation Requested: 07/29/25
Date/Time Consultation Performed: 07/29/25
Requesting Provider: Dr. Matt Diaz
Performing Provider: Dr. Purnima Askew
Reason for Consultation: Hypothermia, bradycardia, sepsis
Chief Complaint / Past History
Chief Complaint
Altered Mental status with neurological deficits
History of Present Illness
Patient is a 79-year-old male who presents to the emergency department for evaluation after daughter took him to the urgent care for altered mental status, increasing weakness (unable to get from his wheelchair to the bed as he normally could),
increasing back pain for the past 5 days. EMS was called to transfer him back to bed last night and then again this morning. They visited urgent care where patient was directed to ER because of a positive urinalysis which they suspected to be UTI.
while in the emergency department his temperature was 91 �F, blood pressure 93/53, pulse rate 33, 96% O2 on room air. Labs show a normal WBC of 7.1, hemoglobin of 13.5, platelet count of 99, sodium slightly decreased at 134, potassium 4.6,
creatinine 1.0, GFR more than 60, glucose 78, calcium slightly decreased at 7.6. TSH was increased at 5.65 and T4 was decreased at 2.44. Lactate was negative and Pro-Walker was negative. Chest x-ray on admission was normal, urinalysis was
unremarkable, CT abdomen and pelvis was unremarkable except for constipation.
Past History
Additional Past Medical History:
infrarenal abdominal aortic aneurysm who was recently status post endovascular repair with a bifurcated Medela endoprosthesis without complications in April, history of inclusion body myositis, hypertension, hyperlipidemia, COPD, wheelchair
dependence
Additional Past Surgical History:
Appendectomy and right knee patellar repair
Allergy History:
Beta-Blockers (Beta-Adrenergic Bloc Allergy (Verified 07/28/25 23:42)
pt states was told not to take them
Medications Reviewed: Yes
Current Antibiotics:
cefepime and Vancomycin
Social History
Tobacco: Former Smoker
Alcohol: None
Drug: None
Personal:
Living: With Family
Family History
Family History: Not Pertinent
Review of Systems
Review of Systems
General: Negative Fever or Chills
HEENT: Negative Lymphadenopathy
Cardiovascular: Negative Chest Pain or Dyspnea
Respiratory: Negative Dyspnea or Cough
Gasteroenterology: Negative Nausea or Vomiting
Genital / Urological: Negative Dysuria or Hematuria
Hematologic: Negative Bleeding Problems
Musculoskeletal: Negative Joint Pain or Joint Swelling
Neurological: Negative Headache or Dizziness
Vital Signs
Temp Pulse Resp BP Pulse Ox
97.9 F 71 18 132/60 98
07/29/25 12:54 07/29/25 13:15 07/29/25 13:15 07/29/25 13:15 07/29/25 13:02
Physical Exam
Physical Exam
Constitutional: No Acute Distress
Lymph Nodes: Negative Lymphadenopathy
Cardiovascular: Regular Rate and S1/S2
Pulmonary: Clear and Symmetric
Gastrointestinal: Soft, Non Tender, Non Distended and Normal Bowel Sounds
Extremities: Negative Edema, Clubbing or Cyanosis
Skin: Warm, Dry and Other (There is candidal intertrigo under the left pectoral fold. )
Wound: None
Neurological: AO x 3
Psychological: Calm
Lab / Diagnostic Study Results
07/29/25 04:21
07/29/25 08:49
Abs Immat Gran (auto) 0.0 10^3/uL (0-0.05) 07/28/25 20:29
Absolute Neuts (auto) 5.2 10^3/uL (1.4-6.5) 07/28/25 20:29
Absolute Lymphs (auto) 1.3 10^3/uL (1.2-3.4) 07/28/25 20:29
Absolute Monos (auto) 0.2 10^3/uL (0.1-0.6) 07/28/25 20:29
Absolute Basos (auto) 0.0 10^3/uL (0-0.2) 07/28/25 20:29
Immature Gran % 0.3 % (0-0.5) 07/28/25 20:
Neutrophils % 73.4 % (42.2-75.2) 07/28/25 20:
Lymphocytes % 18.2 % (20.5-51.1) L 07/28/25 20:29
Monocytes % 3.4 % (1.7-9.3) 07/28/25 20:
Eosinophils % 4.4 % (0-6) 07/28/25 20:29
Basophils % 0.3 % (0-2) 07/28/25 20:29
ESR 7 mm/hour (0-20) 07/29/25 04:21
PT 13.8 Sec (11.4-14.6) 07/29/25 04:21
INR 1.08 07/29/25 04:21
Lactic Acid Cancelled 07/29/25 11:41
C-Reactive Protein 10.00 mg/L (0.0-10.00) 07/29/25 04:21
Procalcitonin < 0.05 ng/ml (0.0-0.25) 07/28/25 23:23
Ur Squamous Epith Cells 0-2 /LPF (Few) 07/28/25 21:06
Microbiology Results
Micro:
07/28/25 21:51 Blood Culture - Pending
Blood/Venous
07/28/25 23:23 Influenza Types A & B (GIDEON) - Final
Nasal Swab Negative for Influenza A & B, NAAT
Negative results must be combined with clinical observations
and patient history.
Nucleic Acid Amplification test (NAAT)performed on the
[employer] platform.
07/28/25 21:51 Blood Culture - Pending
Blood/Venous
Abdomen/ pelvis CT 07/28/25
IMPRESSION:
No renal or ureteral calculus. No bladder calculus. No obstructive uropathy. Stable renal cysts. Stable mild chronic perinephric soft tissue stranding.
Constipation. No bowel obstruction.
No acute inflammatory process within the abdomen or pelvis.
No vertebral compression deformity. No CT evidence to suggest discitis or osteomyelitis. Mild degenerative changes.
Previous endovascular aortic stent graft repair, with stable [place] aneurysm sac.
Chest Xray on 07/28/25
FINDINGS/impression:
Limited by the presence of external pacemaker pads. Patient rotated to left.
As far as visualized, no evidence of pneumonia or congestive heart failure. No pneumothorax. No radiographically demonstrable significant pleural effusion.
Head CT on 07/28/25:
IMPRESSION:
There is a small extra-axial collection in the left frontal region, with appearance and density compatible with a small chronic subdural hematoma, although new since examination 2016.
Consider follow-up CT evaluation to assess for interval change.
Assessment / Plan
Altered mental status with Hypothermia (resolved), Bradycardia ( resolved), Tachypnea ( resolved):
- Patients vitals are stable
-Suspect due to a metabolic cause more specifically myxedema coma (increased TSH and decreased T4 on admission with hypothermia, bradycardia, and a possible unknown recent trigger)
- Consulted for hypothermia presumed sepsis bradycardia secondary to unknown source.
- My suspicion for an infectious source and sepsis is low considering negative chest x-ray, abdominal CT, unremarkable urinalysis, normal WBC count, negative procalcitonin, and a lactate of 0.6.
- Discontinued the cefepime and vancomycin
- Patient started on stress dose steroids
- Awaiting blood cultures
- continue to follow
Candidal Intertrigo:
- continue on miconazole nitrate
--- NOTE | 2025-07-29 14:06 | W.PN.UPDATE ---
Update Note
Progress Note Update
Head CT-small extra-axial collection in the left frontal region compatible with small chronic subdural hematoma although new since 2016.-Will get an MRI of the brain
Venous doppler LE
Resident reached out to neurosurgery -No intervention.
--- NOTE | 2025-07-29 14:08 | PTCARENOTE ---
Addendum entered by Earnestine Miles RN 07/29/25 15:41:
hospitalist notified by TT that patient is refusing heparin. wound care nurse at bedside to assess wounds
Original Note:
patient received from ED, assessments per work list. patient orientedX3, visually hallucinations. forgetful. able to move legs with severe weakness. arms weak, but able to lift arms off bed. weak grasps bilaterally. monitor 2 degree heart block type
1. rates 50's. lungs diminished bilaterally. zazueta in place in scant urine output. Hospitalist updated, orders received. zazueta removed. external device not applied due to penis rash. family at bedside. u[dated with plan of care. rectal probe
inserted. alberto urban resumed. tolerating sips of clears. call marks in reach
--- NOTE | 2025-07-29 14:13 | W.PN.HOSP.TC ---
Today's Communication/Plan
-
- CT head indicated small subdural hematoma. Neurosurgery contacted. No intervention at this time
- Echo today. Will await recommendations from cardiology
- Remove Baltazar catheter
Assessment / Plan
Assessment / Plan
#Hypothermia, unclear reason
- Temperature on arrival was 90.2 �F. Patient warmed and most recent temperatures 99 �F
- No clear source of infection
- Admitted to rule out sepsis
- Blood cultures pending.
- Patient was empirically started on vancomycin and cefepime
- Consulted ID
#Visual hallucinations
- Ordered CT head which indicated a small chronic subdural hematoma. Neurosurgery notified and they indicated no intervention needed at this time.
#Bradycardia
- Rate improved
- Holding antihypertensives
- Initial rhythm on arrival noted to be type II Mobitz. Rhythm is improved with temperature.
- Cardiology consulted
- Echo ordered
- Cortisol level stable
- Lyme panel pending
- Mild elevation in TSH
#Lower extremity edema
- Bilateral lower extremity pitting edema, right greater than left
- Venous ultrasound bilateral lower extremities
#History of abdominal aortic aneurysm repair
- Continue aspirin
#Hyperlipidemia
- continue statin
#COPD
- Continue albuterol and Spiriva
#Enlarged prostate
- Continue finasteride
- Baltazar in place, for unsure reason
CODE STATUS: Full code
DVT PPx: Heparin subq
Diet: Clear liquids
Anticipated Discharge: > 48 hours
Subjective/Interval History
-
Date of Service: July 29, 2025
Patient seen this morning in the ED prior to moving to floors. Patient's and son are present. Patient notes that he has been experiencing increased weakness for 3 to 4 weeks. He has been wheelchair-bound for 11 years however has continued to
drive his car. About 4 weeks ago he stopped having enough muscle strength to use the pedals, so he stopped driving. Patient does not feel that he has altered mental status, but his and son believe that he is confused and has been saying
strange things. While talking with patient he said there were 'dots on all of our faces.' Patient was awake alert and oriented to self, location.
Objective Data
-
Labs:
Laboratory Results
07/29/25 07/29/25
04:21 08:49
WBC 7.5
Hgb 11.4 L
Hct 35.0 L
Plt Count 94 L
PT 13.8
INR 1.08
APTT 35.1 H
Sodium 134 L
Potassium 4.6
Chloride 108 H
Carbon Dioxide 25
BUN 29 H
Creatinine 1.0
Glucose 78
Calcium 7.6 L
Vital Signs:
Vital Signs
Temp Pulse Resp BP Pulse Ox
96.7 F L 71 18 132/60 98
07/29/25 14:07 07/29/25 13:15 07/29/25 13:15 07/29/25 13:15 07/29/25 13:02
I&O
07/28/25 07/29/25 07/30/25
06:59 06:59 06:59
Intake Total 120 / 120
Output Total 350 / 350 205 / 205
Balance -350 / -350 -85 / -85
Review of Systems
-
History Source: Patient
Constitutional: Reports No Symptoms
EENT: Reports No Symptoms Reported
Respiratory: Reports No Symptoms
Cardiac: Reports No Symptoms
Abdomen/GI: Reports No Symptoms
Genitourinary: Reports No Symptoms
Musculoskeletal: Reports Other (History of inclusion body myositis with weakness, decreased use of limbs.)
Skin: Reports Other (Left under breast fungal rash)
Neuro: Reports Weakness and Other (Visual disturbances)
Endocrine: Reports No Symptoms
Hematologic / Lymphatic: Reports No Symptoms
Allergy / Immunology: Reports No Symptoms
Physical Exam
-
General: No Apparent Distress and Comfortable
HEENT: Moist Mucous Membranes
Respiratory: Clear to Auscultation
Cardiac: Regular Rhythm
GI: Soft, Nontender and Nondistended
Musculoskeletal: Other (Bilateral lower extremity edema)
Skin: Warm and Dry
Neuro: Awake, Alert and Oriented
Psych: Calm and Confused
--- NOTE | 2025-07-29 15:28 | W.PN.UPDATE ---
Update Note
Progress Note Update
Records obtained and reviewed from Dr. Hopper's office. 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
He had occasional PVCs and PACs. Last EKG in office showed sinus rhythm with first-degree AV block and PVCs on 04/12/2025. Last echocardiogram dated 12/2024 with EF 60 to 65%, no significant valvular disease.
--- NOTE | 2025-07-29 15:46 | WOUNDNOTE ---
WON RN note: Patient admitted with hypothermia, bradycardia.
See H&P for complete history. Lives with family.
PMH: Patient is a 79-year-old who has a past medical history significant for infrarenal abdominal aortic aneurysm who was recently status post endovascular repair with a bifurcated medulla endoprosthesis without complication in April, history of
inclusion body myositis, hypertension, hyperlipidemia, COPD, wheelchair dependence who presents to the emergency department for evaluation after daughter took him to urgent care for altered mental status as well as worsening mobility.
Wound Location and type/assessment: Patient admitted with: fungal rash under L breast groin and penis. R axilla with skin tear vs fungal. L knee with an abrasion, patient states he banged into something when in wheelchair. L toes with tiny blood
blisters, no drainage. Suspect banged toes when hit knee. L lateral ankle with stage 1 PI, heel intact. R heel with faint small maroon discoloration, possible evolving DTI vs bruise. Patient denies wearing shoes when in w/c, just socks. Fiber filled
boots already in use, obtained by nurse. Sacrum blanchable red foam in use.
Appetite: Good.
Pressure redistribution devices in place: On air mattress, turning schedule, offloading heel boots.
Plan: Foams to heels, L lateral ankle, L knee and sacrum. Called [facility] for Vashe to clean/soak under L axilla then dust with fungal powder bid. Barrier cream applied to penis. Will update wound care orders and confirm with hospitalist.
Updated nurse on plan, care plan and will follow as needed.
Note to case management of equipment requested for discharge: None.
Recommend follow up at wound care center if wounds don't heal, upon discharge.
[2025-07-29] MEDS: HEPARIN 5000 UNITS SC (16:30)
[2025-07-29] MEDS: LIPITOR 20 MG PO (16:30)
--- NOTE | 2025-07-29 18:08 | PTCARENOTE ---
poor urine ouput. hospitalist cross coverage Dr Stack updated by TT regarding patient status, heart rate rhythm, blood pressure trends, continued visual hallucinations. continues with alberto urban per work list
[2025-07-29] MEDS: SPIRIVA RESPIMAT 2.5 MCG 2 PUFF INH (19:34)
--- NOTE | 2025-07-29 20:00 | PTCARENOTE ---
Pt awake alert and oriented but confused to place at times. Still with visual hallucinations at times. Jus huggar remains on for hypothermia. Remains in 2nd degree AV block type 1. Assessment as charted.
[2025-07-30] VITALS (20 sets, daily range): BP systolic 90–139; BP diastolic 37–79; BMI 25.0
--- NOTE | 2025-07-30 00:19 | PTCARENOTE ---
Pt becoming more confused and argumentative. Taking blankets off despite educating pt on keeping body temp up. Wants to get out of bed and does not believe he is in the hospital. Attempts at reorientation at this time are unsuccessful. Will continue
to monitor.
--- NOTE | 2025-07-30 03:52 | PTCARENOTE ---
Pt remains confused. Has not slept at all. Jus urban back on pt as temp 96.3
[2025-07-30 04:07] LABS: Hematocrit 35.7 % (39.0-52.0); Hemoglobin 11.9 g/dL (13.0-18.0); Mean Corp Hgb Conc. 33.3 g/dL (33.0-37.0); Mean Corpuscular Volume 87.3 fL (80.0-94.0); Platelet Count 95 10^3/uL (130-400); Red Cell Dist. Width 16.4 % (11.5-14.5)
[2025-07-30 04:14] LABS: Blood Urea Nitrogen 30 mg/dl (9-20); Calcium 8.0 mg/dl (8.4-10.2); Carbon Dioxide 27 mmol/L (22-30); Chloride 107 mmol/L (98-107); Estimated Creatinine Clearance 62 ml/min; Glucose 77 mg/dl (70-99); Potassium 4.3 mmol/L (3.5-5.1); Sodium 133 mmol/L (135-145); eGFR > 60.00
--- NOTE | 2025-07-30 07:04 | PTCARENOTE ---
prior shift vital signs captured. unable to verify accuracy
[2025-07-30] MEDS: HEPARIN 5000 UNITS SC ×2 (07:14→15:28)
[2025-07-30] MEDS: PROTONIX IV 40 MG IV (07:14)
[2025-07-30] MEDS: NSS (PRESERVATIVE FREE) 10 ML IV (07:14)
[2025-07-30] MEDS: LOW STRENGTH ASPIRIN 81 MG PO (07:14)
[2025-07-30] MEDS: PROSCAR 5 MG PO (07:14)
[2025-07-30] MEDS: DESENEX/MITRAZOL/ZEASORB 1 APPLIC TOPICAL ×2 (07:15→19:48)
[2025-07-30] MEDS: VENTOLIN NEBULES 2.5 MG INH (07:41)
--- NOTE | 2025-07-30 08:44 | PTCARENOTE ---
report received. assessments per work list. patient oriented to self only, stating 'I want to stand up', belligerent with care. will not leave alberto hugger or blankets over him. monitor 2nd degree heart block, type 1. lungs with crackles,diminished.
abdomen obese, hyperactive bowel sounds. complete care given. safe environment maintained. bed alarm activated
--- NOTE | 2025-07-30 09:36 | W.PN.ID1 ---
Date of Service
Date of Service: July 30, 2025
Today's Communication
no indication for empiric antibiotics
no objection to PPM placement
Assessment / Plan
A/P
# Hypothermia
# Bradycardia/Type 2 AV block
# Low free T3
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
# Recent AAA EVAR 05/09/25
- No infectious etiology identified to date.
No focal symptoms.
COVID/influenza neg
UA neg. CXR neg.
CT a/p unremarkable.
Head CT small chronic subdural hematoma
No clinical history of tick exposure.
- Blood cx's pending.
- DCd Vanco/cefepime 07/29 and observing
-Monitor temps
- From ID standpoint, can place PPM if necessary.
# Left breast intertrigo candidiasis
- Continue topical antifungal.
Chief Complaint
-: Other (AMS, bradycardia)
Subjective / Review of Systems
hypothermia ongoing
bp stable
belligerent and refusing alberto hugger overnight
calm this AM
no complaints
Vital Signs / Physical Exam
Vital Signs
Vital Signs
Temp Pulse Resp BP Pulse Ox
97 F 53 16 105/51 97
07/30/25 07:09 07/30/25 08:39 07/30/25 08:39 07/30/25 08:39 07/30/25 08:39
Physical Exam
Constitutional: No Acute Distress
Cardiovascular: Regular Rate and S1/S2; Negative Murmur or Rub
Pulmonary: Clear and Symmetric; Negative Wheezes or Rales
Gastrointestinal: Soft, Non Tender, Non Distended and Normal Bowel Sounds
Skin: Warm and Dry; Negative Rash or Jaundice
Objective Data
Lab Data
Lab Results
07/30/25 03:47
07/30/25 03:47
ESR 7 mm/hour (0-20) 07/29/25 04:21
PT 13.8 Sec (11.4-14.6) 07/29/25 04:21
INR 1.08 07/29/25 04:21
APTT 35.1 Sec (23.4-35.0) H 07/29/25 04:21
Estimated Creat Clear 62 ml/min 07/30/25 03:47
Lactic Acid Cancelled 07/29/25 11:41
Total Bilirubin 0.7 mg/dl (0.2-1.3) 07/28/25 20:29
AST 55 U/L (17-59) 07/28/25 20:29
ALT 64 U/L (0-50) H 07/28/25 20:29
Alkaline Phosphatase 103 U/L (38-126) 07/28/25 20:29
C-Reactive Protein 10.00 mg/L (0.0-10.00) 07/29/25 04:21
Most recent labs reviewed.
Micro Results:
07/28/25 21:51 Blood Culture - Preliminary
Blood/Venous No Growth in 24 hours- Final report to follow
07/28/25 21:51 Blood Culture - Preliminary
Blood/Venous No Growth in 24 hours- Final report to follow
07/28/25 23:23 Influenza Types A & B (GIDEON) - Final
Nasal Swab Negative for Influenza A & B, NAAT
Negative results must be combined with clinical observations
and patient history.
Nucleic Acid Amplification test (NAAT)performed on the
[employer] platform.
Abdomen/ pelvis CT 07/28/25
IMPRESSION:
No renal or ureteral calculus. No bladder calculus. No obstructive uropathy. Stable renal cysts. Stable mild chronic perinephric soft tissue stranding.
Constipation. No bowel obstruction.
No acute inflammatory process within the abdomen or pelvis.
No vertebral compression deformity. No CT evidence to suggest discitis or osteomyelitis. Mild degenerative changes.
Previous endovascular aortic stent graft repair, with stable [place] aneurysm sac.
Chest Xray on 07/28/25
FINDINGS/impression:
Limited by the presence of external pacemaker pads. Patient rotated to left.
As far as visualized, no evidence of pneumonia or congestive heart failure. No pneumothorax. No radiographically demonstrable significant pleural effusion.
Head CT on 07/28/25:
IMPRESSION:
There is a small extra-axial collection in the left frontal region, with appearance and density compatible with a small chronic subdural hematoma, although new since examination 2016.
Consider follow-up CT evaluation to assess for interval change.
--- NOTE | 2025-07-30 10:06 | W.PN.HOSP.TC ---
Today's Communication/Plan
-
MRI
Psychiatric valuation
Assessment / Plan
Assessment / Plan
een and examined the patient with the resident. Agree with the plan formulated together. See changes in my documentation
79-year-old male was found to have altered mental status, hypothermia and bradycardia generalized weakness
CT abdomen pelvis-no ureteral calculus, bladder calculus or obstructive uropathy. Constipation. No acute inflammatory process in the abdomen. Previous endovascular aortic graft repair.
CT head-small extra-axial collection in the left frontal region with appearance and density compatible with small subdural hematoma new since 2015.
EKG reviewed by me-Mobitz type II heart block with bradycardia rate 44
EKG 07/28/2025-morning looks like Mobitz type I with a rate of 73 bpm
Echo LV normal in size, EF 55 to 60%. Mild concentric LVH. Trace TR, PA pressure 27 mmHg.
Very confused and paranoid would not let me examine him asked me to get out of the room
No recollection that we met yesterday
I was able to examine the left breast fold-looks much better than yesterday
# Hypothermia unclear reason
No clear source of infection
Admitted to rule out sepsis
CRP and sed rate are normal
Blood cultures sent
ID evaluation appreciated
Antibiotics discontinued.
# Visual hallucination-head CT with chronic subdural hematoma. Check MRI of the brain
Paranoia
Psychiatry evaluation
# Bradycardia
First EKG showed intermittent Mobitz type II but second EKG is Mobitz type I and heart rate has improved.
Not on any rate controlling agents as outpatient
TSH mostly unremarkable. Needs repeat as outpatient in 6 weeks
Cortisol level was stable
Lyme study pending
Echocardiogram as above
Cardiology Consult appreciated.
Cardiology notes reviewed-patient follows up with Dr. Hopper had a [employer] monitor 10/14/2024 which showed sinus rhythm with first-degree AV block and Wenckebach. Heart rate ranged from 42-128 occasional PVCs and PACs
# Mild thrombocytopenia-follow
# History of hypertension-hold antihypertensives-Norvasc and lisinopril
# History of AAA repair-On aspirin and statin
# Sleep apnea-no longer on CPAP
# COPD-continue albuterol and Spiriva
# History of left lower lobe focal bronchiectasis and chronic scarring
# History of pulmonary nodules follows up with Dr. Galan
# Hyperlipidemia-continue atorvastatin
# History of inclusion body myositis-uses a wheelchair/scooter
# Enlarged prostate-continue finasteride
# Ex-smoker
# DVT prophylaxis-subcutaneous heparin
# Full code
Discussed with ER nursing at bedside
Called and left a message for daughter
Called went to message
Spoke to other daughter Shannon and updated.
Part of this note was cerated using voice recognition system. Occasional wrong word or��sound alike� substitutions may have inadvertently occurred due to the inherent limitations of voice recognition software. If noted kindly bring it to my
attention for correction.
Anticipated Discharge: > 48 hours
Subjective/Interval History
-
Date of Service: July 30, 2025
Objective Data
-
Labs:
Laboratory Results
07/30/25
03:47
WBC 7.0
Hgb 11.9 L
Hct 35.7 L
Plt Count 95 L
Sodium 133 L
Potassium 4.3
Chloride 107
Carbon Dioxide 27
BUN 30 H
Creatinine 1.1
Glucose 77
Calcium 8.0 L
Vital Signs:
Vital Signs
Temp Pulse Resp BP Pulse Ox
97 F 53 16 105/51 97
07/30/25 07:09 07/30/25 08:39 07/30/25 08:39 07/30/25 08:39 07/30/25 08:39
I&O
07/29/25 07/30/25 07/31/25
06:59 06:59 06:59
Intake Total 840 / 840 240 / 240
Output Total 350 / 350 455 / 455 75 / 75
Balance -350 / -350 385 / 385 165 / 165
--- NOTE | 2025-07-30 11:36 | PTCARENOTE ---
patient initially refused MRI, threw denture cup at staff. when patient spouse and daughter arrived, he agreed to MRI. taken and returned from MRI without issue. alberto hugger resumed per orders. patient allowed alberto hugger placement with family at
bedside
[2025-07-30 12:39] LABS: Vitamin D, 25-OH*** < 12.8 ng/mL (30-80)
--- NOTE | 2025-07-30 13:05 | PTCARENOTE ---
Addendum entered by Earnestine Miles RN 07/30/25 13:51:
patient awakened from a nap and again was oriented to self only
Original Note:
patient now oriented X3, cooperative. able to make needs known and using call marks
--- NOTE | 2025-07-30 14:40 | PTCARENOTE ---
Addendum entered by Earnestine Miles RN 07/30/25 17:26:
order received. temp goal now 98. patient oriented at this time, cooperative. bladder scan per work list
Original Note:
patient heart rate dropped to the 20's. up to 40-50 with stimulation. ekg completed now in second degree heart block type 2. reported this to deputy clerk of superior court and hospitalist. vital signs per work list. awaiting orders
--- NOTE | 2025-07-30 15:26 | W.PN.CARDCBS ---
Today's Communication / Plan
-
Hold atorvastatin at request of son
Continue to observe on telemetry
Currently no clear indication for pacemaker implantation
Impression / Plan
-
Primary Rn Transition: Dr. Hopper of [facility]
Assessment:
Presentation with change in mental status
Weakness
Concern for UTI
Hypothermia
Second-degree AV block, Mobitz type I
Inclusion body myositis
Ambulatory dysfunction/wheelchair dependence
Hypertension
Hyperlipidemia
COPD
STEVE on CPAP
Infrarenal abdominal aortic aneurysm status post endovascular repair 04/2025
History of pauses status post [employer] monitor 2015, now nonfunctional
History of agent orange exposure
Obesity
Possible small chronic left frontal subdural
ECHO 2016: EF 55 to 60%, mild concentric LVH, no significant valvular disease
Echocardiogram 07/29/2025: EF 55-60%, mild LVH, normal RV, normal left atrium, normal aortic and mitral valve, normal pulmonary artery systolic pressure
Plan:
Overall he seems about the same with regards to his second-degree heart block.
He has required a Jus hugger, hypothermia is not as severe.
His echocardiogram is satisfactory
He is back from MRI, possible old left frontal subdural
He has what is likely subclinical hypothyroidism, though given hypothermia and heart block, I would be in favor of thyroid replacement, knowing that in the absence of other findings thyroid replacement would not typically be given.
He remains off AV giulia blocking agents.
His son expresses concerns regarding possible adverse effects of statin therapy in patients with inclusion body myositis. I do not think these are related but have no objections to holding atorvastatin and reassessing as outpatient.
At this point, he does not have a clear-cut indication for pacemaker implantation, but will continue to follow.
Progress Note - Rn Transition
Subjective
Date of Service: July 30, 2025:
79-year-old man admitted with inclusion body myositis now with change in mental status associated with hypothermia and second-degree heart block, bradycardia, currently with heart rates in 60s.
PMH/PSH: Inclusion body myositis, wheelchair-bound, hypertension, hyperlipidemia, COPD, obstructive sleep apnea, endovascular repair of abdominal aortic aneurysm, LINQ monitor at end of service, agent orange exposure, obesity
Medications: Aspirin 81 mg a day, atorvastatin 20 mg a day, Proscar 5 mg a day, Spiriva, subcu heparin, pantoprazole
122/56, pulse 42, respiratory rate 14, temp is 35.9, generalized weakness, possibly mildly confused, lungs are clear, intermittently irregular rhythm without murmurs, extremities with changes of inclusion body myositis, weakness, neuro otherwise
grossly nonfocal
Head CT/MRI: Possible old small left frontal subdural
ECG: Sinus rhythm with 2-1 AV block
Hemoglobin 11.9, platelets 95, sodium 133, BUN/creatinine 30 and 1.1, severe vitamin B deficiency, TSH is 6.35
Telemetry: Still with second-degree heart block, heart rate usually in the 40s, occasionally lower
Objective
Labs:
07/30/25 03:47
07/30/25 03:47
Labs
Hgb 11.9 g/dL (13.0-18.0) L 07/30/25 03:47
Hct 35.7 % (39.0-52.0) L 07/30/25 03:47
Plt Count 95 10^3/uL (130-400) L 07/30/25 03:47
PT 13.8 Sec (11.4-14.6) 07/29/25 04:21
INR 1.08 07/29/25 04:21
APTT 35.1 Sec (23.4-35.0) H 07/29/25 04:21
Sodium 133 mmol/L (135-145) L 07/30/25 03:47
Potassium 4.3 mmol/L (3.5-5.1) 07/30/25 03:47
BUN 30 mg/dl (9-20) H 07/30/25 03:47
Creatinine 1.1 mg/dL (0.7-1.3) 07/30/25 03:47
Glucose 77 mg/dl (70-99) 07/30/25 03:47
Troponins
07/28/25
20:29
Troponin I 0.013
Vital Signs and I&O:
Vital Signs
Temp Pulse Resp BP Pulse Ox
35.9 C L 42 14 122/56 97
07/30/25 15:13 07/30/25 15:00 07/30/25 15:00 07/30/25 14:01 07/30/25 15:00
Vital Signs
Temp Pulse Resp BP Pulse Ox
35.9 C L 42 14 122/56 97
07/30/25 15:13 07/30/25 15:00 07/30/25 15:00 07/30/25 14:01 07/30/25 15:00
Intake & Output
07/28/25 07/29/25 07/30/25 07/31/25
07:59 07:59 07:59 07:59
Intake Total 840 / 1080 720 / 720
Output Total 350 / 450 455 / 530 250 / 250
Balance -350 / -450 385 / 550 470 / 470
Physical Exam
Physical Exam
See above
--- NOTE | 2025-07-30 16:30 | CON.MD ---
Consultation - Medical
-
79 yr old M admitted for altered mental status, hypothermia and bradycardia with generalized weakness. Pt with PMH of mild thrombocytopenia, HTN, hx of AAA repair, STEVE, COPD, LLL focal bronchiectasis and chronic scarring + pulmonary nodules, HLD,
BPH. Also with inclusion body myositis, uses wheelchair/scooter to ambulate. Found to have Mobitz type I heart block during admission (monitor from 10/14/2024 showed sinus rhythm with first-degree AV block and Wenckebach). Hypothermia of unknown
cause but gradually improving. Also found to have new small subdural hematoma.
Prior to admission pt reported to have been experiencing increased weakness for 3 to 4 weeks - previously wheelchair-bound for [address] y[address] able to drive until a month ago when he felt he could no longer use pedals due to loss of muscle strength. Pts
family reported increasing confusion in the weeks preceeding admission. Pt reported to be increasingly paranoid and intermittently agitated, at times with reports of VH by pt. Psychiatry consulted due to concerns about VH/paranoia & agitation as
this has been interfering with pts treatment.
Pt seen & evaluated at bedside, chart reviewed, discussed with nursing. Pt pleasant but poor historian. Was fully oriented but did not know why he was in hospital, nor was he able to give much meaningful answers beyond basic orientation questions.
Could be seen picking at bedsheets, seemingly purposelessly. At times looking around as if seeing something, at times appears suspicious for unclear reasons.
No significant prior MH hx - pt is [place] vet[place], has good family supports and [facility] supports [facility]. Although he may have at points in the past experienced difficulties due to the trauma of war, there is no history of psychosis or
agitation reported prior to recent weeks.
intermittently agitated delirium- unclear of what cause exactly at this time, hypothermia itself could induce delirium, as can heart rate instability and other factors
MSE: male, poor eye contact, speech is soft, slow and mumbling. Mood is 'OK', affect is blunted. Thought process is slow, concrete. +paranoia (in particular regarding staff and treatment procedures while admitted),+VH. AAOx3 though confused and
unable to provide meaningful answers beyond this. Memory not formally tested. Insight/judgement poor.
1. Trial of Abilify 1mg - pt has heart block & at higher risk of adverse cardiac events with risperidone/olanzapine and to a lesser degree quetiapine. Although abilify, in particular at low doses, is not as rapidly acting or potent, it currently is
the safest option for pt to manage paranoia/VH. Will monitor & reassess for need to titrate up based on response.
[2025-07-30] MEDS: SYNTHROID 12.5 MCG PO (16:57)
[2025-07-30] MEDS: ABILIFY 1 MG PO (16:58)
[2025-07-30] MEDS: DRISDOL (VITAMIN D2) 50000 UNITS PO (17:21)
[2025-07-30] MEDS: SPIRIVA RESPIMAT 2.5 MCG 2 PUFF INH (20:45)
[2025-07-31] VITALS (25 sets, daily range): BP systolic 91–171; BP diastolic 43–145; BMI 24.9
[2025-07-31] MEDS: HEPARIN 5000 UNITS SC (00:01)
[2025-07-31 04:27] LABS: Hematocrit 36.2 % (39.0-52.0); Hemoglobin 12.0 g/dL (13.0-18.0); Mean Corp Hgb Conc. 33.1 g/dL (33.0-37.0); Mean Corpuscular Volume 87.4 fL (80.0-94.0); Platelet Count 86 10^3/uL (130-400); Red Cell Dist. Width 16.3 % (11.5-14.5)
[2025-07-31 04:43] LABS: Blood Urea Nitrogen 32 mg/dl (9-20); Calcium 8.2 mg/dl (8.4-10.2); Carbon Dioxide 24 mmol/L (22-30); Chloride 106 mmol/L (98-107); Estimated Creatinine Clearance 62 ml/min; Glucose 82 mg/dl (70-99); Magnesium 2.0 mg/dl (1.6-2.3); Potassium 4.6 mmol/L (3.5-5.1); Sodium 134 mmol/L (135-145); eGFR > 60.00
[2025-07-31] MEDS: SYNTHROID 12.5 MCG PO (05:23)
--- NOTE | 2025-07-31 05:45 | PTCARENOTE ---
Assumed care at 1900. Patient with waxing and waning mental status. Is oriented and follows commands but is suspicious at times and has hallucinations. Cooperative with care overnight. Jus hugger placed to maintain rectal temp at 98f. Second degree
heart block on the monitor in the 50s-60s.
--- NOTE | 2025-07-31 07:05 | PTCARENOTE ---
Received patient A&Ox3, confused to situation, somewhat delirious, stated seeing people in the room, reoriented to reality, on Jus Hugger protocol for Hypothermia management, 2nd AVB Type 1, BP WNL, on RA, Regular diet, GI/ incontinent.
[2025-07-31] MEDS: VENTOLIN NEBULES 2.5 MG INH (07:28)
[2025-07-31] MEDS: VITAMIN D3 (cholecalciferol) 50 MCG PO (08:48)
[2025-07-31] MEDS: NSS (PRESERVATIVE FREE) 10 ML IV (08:48)
[2025-07-31] MEDS: ABILIFY 1 MG PO (08:48)
[2025-07-31] MEDS: LOW STRENGTH ASPIRIN 81 MG PO (08:48)
[2025-07-31] MEDS: PROTONIX IV 40 MG IV (08:48)
[2025-07-31] MEDS: DESENEX/MITRAZOL/ZEASORB 1 APPLIC TOPICAL ×2 (08:49→20:10)
[2025-07-31] MEDS: PROSCAR 5 MG PO (08:49)
[2025-07-31] MEDS: HEPARIN SC (09:14)
--- NOTE | 2025-07-31 09:36 | W.PN.ID1 ---
Date of Service
Date of Service: July 31, 2025
Today's Communication
From ID standpoint, can place PPM if necessary.
Assessment / Plan
A/P
# Hypothermia
# Bradycardia/Type 2 AV block
# Low free T3
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
# Recent AAA EVAR 05/09/25
- No infectious etiology identified to date.
No focal symptoms.
COVID/influenza neg
UA neg. CXR neg.
CT a/p unremarkable.
Head CT small chronic subdural hematoma
No clinical history of tick exposure; lyme serologies sent by admitting team
- Blood cx's pending.
- DCd Vanco/cefepime 07/29 and observing
- Monitor temps - remains afebrile
- From ID standpoint, can place PPM if necessary.
# Left breast intertrigo candidiasis
- Continue topical antifungal.
Chief Complaint
-: Other (AMS, bradycardia)
Subjective / Review of Systems
hypothermia resolved
BP stable
pulse now 50s - 80 range
waxing and waning mental status
Vital Signs / Physical Exam
Vital Signs
Vital Signs
Temp Pulse Resp BP Pulse Ox
98.4 F 66 16 122/59 95
07/31/25 08:00 07/31/25 07:31 07/31/25 07:31 07/31/25 08:00 07/31/25 07:31
Physical Exam
Constitutional: No Acute Distress
Cardiovascular: Regular Rate and S1/S2; Negative Murmur or Rub
Pulmonary: Clear and Symmetric; Negative Wheezes or Rales
Gastrointestinal: Soft, Non Tender, Non Distended and Normal Bowel Sounds
Skin: Warm and Dry; Negative Rash or Jaundice
Objective Data
Lab Data
Lab Results
07/31/25 03:49
07/31/25 03:49
ESR 7 mm/hour (0-20) 07/29/25 04:21
PT 13.8 Sec (11.4-14.6) 07/29/25 04:21
INR 1.08 07/29/25 04:21
APTT 35.1 Sec (23.4-35.0) H 07/29/25 04:21
Estimated Creat Clear 62 ml/min 07/31/25 03:49
Lactic Acid Cancelled 07/29/25 11:41
Total Bilirubin 0.7 mg/dl (0.2-1.3) 07/28/25 20:29
AST 55 U/L (17-59) 07/28/25 20:29
ALT 64 U/L (0-50) H 07/28/25 20:29
Alkaline Phosphatase 103 U/L (38-126) 07/28/25 20:29
C-Reactive Protein 10.00 mg/L (0.0-10.00) 07/29/25 04:21
Most recent labs reviewed.
Micro Results:
07/28/25 21:51 Blood Culture - Preliminary
Blood/Venous No Growth in 48 hours- Final report to follow
07/28/25 21:51 Blood Culture - Preliminary
Blood/Venous No Growth in 48 hours- Final report to follow
07/28/25 23:23 Influenza Types A & B (GIDEON) - Final
Nasal Swab Negative for Influenza A & B, NAAT
Negative results must be combined with clinical observations
and patient history.
Nucleic Acid Amplification test (NAAT)performed on the
[employer] platform.
Abdomen/ pelvis CT 07/28/25
IMPRESSION:
No renal or ureteral calculus. No bladder calculus. No obstructive uropathy. Stable renal cysts. Stable mild chronic perinephric soft tissue stranding.
Constipation. No bowel obstruction.
No acute inflammatory process within the abdomen or pelvis.
No vertebral compression deformity. No CT evidence to suggest discitis or osteomyelitis. Mild degenerative changes.
Previous endovascular aortic stent graft repair, with stable [place] aneurysm sac.
Chest Xray on 07/28/25
FINDINGS/impression:
Limited by the presence of external pacemaker pads. Patient rotated to left.
As far as visualized, no evidence of pneumonia or congestive heart failure. No pneumothorax. No radiographically demonstrable significant pleural effusion.
Head CT on 07/28/25:
IMPRESSION:
There is a small extra-axial collection in the left frontal region, with appearance and density compatible with a small chronic subdural hematoma, although new since examination 2016.
Consider follow-up CT evaluation to assess for interval change.
--- NOTE | 2025-07-31 09:38 | W.PN.HOSP.TC ---
Today's Communication/Plan
-
Monitor heart rate
Physical therapy
Assessment / Plan
Assessment / Plan
79-year-old male was found to have altered mental status, hypothermia and bradycardia generalized weakness
CT abdomen pelvis-no ureteral calculus, bladder calculus or obstructive uropathy. Constipation. No acute inflammatory process in the abdomen. Previous endovascular aortic graft repair.
CT head-small extra-axial collection in the left frontal region with appearance and density compatible with small subdural hematoma new since 2015.
EKG reviewed by me-Mobitz type II heart block with bradycardia rate 44
EKG 07/28/2025-morning looks like Mobitz type I with a rate of 73 bpm
Echo LV normal in size, EF 55 to 60%. Mild concentric LVH. Trace TR, PA pressure 27 mmHg.
MRI of the brain-subtle small chronic appearing extra-axial fluid collection in the left frontal region compared to the head CT from 07/29/2025
Patient is awake alert oriented x 3. Aware about surroundings and what is going on. Told me that his is admitted downstairs as she got sick when she was here yesterday.
When I spoke to his daughter she states that that he has difficulty managing his phone forgetting to do how this is. He also could not operate his wheelchair at home a week ago. He also was not able to order groceries online which he always did in
the past
Cardiovascular system S1-S2 appreciated
Chest clear to auscultation
Abdomen soft and nontender
Left breast fold looks much better redness much decreased
# Hypothermia unclear reason
No clear source of infection
Admitted to rule out sepsis
CRP and sed rate are normal
Blood cultures sent
ID evaluation appreciated
Antibiotics discontinued.
Given slightly elevated TSH, hypothermia and bradycardia a low-dose of Synthroid was started after discussion with cardiology
# Visual hallucination-head CT with chronic subdural hematoma.
MRI of the brain-stable
Paranoia
Psychiatry evaluation appreciated
Patient was started on Abilify last night 1 mg
As per discussion with the daughter the patient has been having some issues with doing intellectual tasks like operating his phone, his wheelchair, ordering groceries online etc. for the past couple of weeks..
I discussed about getting a formal cognitive evaluation as outpatient to rule out short-term memory loss.
# Bradycardia
First EKG showed intermittent Mobitz type II but second EKG is Mobitz type I and heart rate has improved.
Not on any rate controlling agents as outpatient
Cortisol level was stable
Lyme study pending
Echocardiogram as above
Given slightly elevated TSH, hypothermia and bradycardia a low-dose of Synthroid was started after discussion with cardiology
Cardiology Consult appreciated.
Cardiology notes reviewed-patient follows up with Dr. Hopper had a ZIO monitor 10/14/2024 which showed sinus rhythm with first-degree AV block and Wenckebach. Heart rate ranged from 42-128 occasional PVCs and PACs
# Mild thrombocytopenia-follow
# History of hypertension-hold antihypertensives-Norvasc and lisinopril
# History of AAA repair-On aspirin and statin
# Sleep apnea-no longer on CPAP
# COPD-continue albuterol and Spiriva
# History of left lower lobe focal bronchiectasis and chronic scarring
# History of pulmonary nodules follows up with Dr. Galan
# Hyperlipidemia-continue atorvastatin
# History of inclusion body myositis-uses a wheelchair/scooter
# Enlarged prostate-continue finasteride
# Vit D Deficiency-replace
# Ex-smoker
# DVT prophylaxis-subcutaneous heparin
# Full code
Discussed with nursing at bedside
Patient's also got admitted here to the hospital yesterday.
Spoke to patient's daughter Essie and updated.
Part of this note was cerated using voice recognition system. Occasional wrong word or��sound alike� substitutions may have inadvertently occurred due to the inherent limitations of voice recognition software. If noted kindly bring it to my
attention for correction.
Anticipated Discharge: > 48 hours
Subjective/Interval History
-
Date of Service: July 31, 2025
Objective Data
-
Labs:
Laboratory Results
07/31/25
03:49
WBC 8.5
Hgb 12.0 L
Hct 36.2 L
Plt Count 86 L
Sodium 134 L
Potassium 4.6
Chloride 106
Carbon Dioxide 24
BUN 32 H
Creatinine 1.1
Glucose 82
Calcium 8.2 L
Vital Signs:
Vital Signs
Temp Pulse Resp BP Pulse Ox
98.4 F 66 16 122/59 95
07/31/25 08:00 07/31/25 07:31 07/31/25 07:31 07/31/25 08:00 07/31/25 07:31
I&O
07/30/25 07/31/25 08/01/25
06:59 06:59 06:59
Intake Total 840 / 840 720 / 720
Output Total 455 / 455 1125 / 1125
Balance 385 / 385 -405 / -405
--- NOTE | 2025-07-31 13:21 | W.PN.CARDCBS ---
Today's Communication / Plan
-
Stable cardiac status
AV conduction overall improved, hopefully to avoid pacemaker implantation
Will continue to monitor.
Impression / Plan
-
Primary Electrician Office: Dr. Hopper of [facility]
Assessment:
Presentation with change in mental status
Weakness
Concern for UTI
Hypothermia
Second-degree AV block, Mobitz type I
Inclusion body myositis
Ambulatory dysfunction/wheelchair dependence
Hypertension
Hyperlipidemia
COPD
STEVE on CPAP
Infrarenal abdominal aortic aneurysm status post endovascular repair 04/2025
History of pauses status post Linq monitor 2015, now nonfunctional
History of agent orange exposure
Obesity
Possible small chronic left frontal subdural
ECHO 2016: EF 55 to 60%, mild concentric LVH, no significant valvular disease
Echocardiogram 07/29/2025: EF 55-60%, mild LVH, normal RV, normal left atrium, normal aortic and mitral valve, normal pulmonary artery systolic pressure
Plan:
He remains with Mobitz 1 second-degree AV block, but overall AV conduction is better.
Hypothermia seems improved over the last 24 hours, and improvement in AV conduction is coincident with this.
At present, no indication for pacemaker implantation.
Will continue to follow.
Progress Note - Electrician Office
Subjective
Date of Service: July 31, 2025:
79-year-old man admitted with inclusion body myositis now with change in mental status associated with hypothermia and second-degree heart block, bradycardia, currently with heart rates in 60s.
PMH/PSH: Inclusion body myositis, wheelchair-bound, hypertension, hyperlipidemia, COPD, obstructive sleep apnea, endovascular repair of abdominal aortic aneurysm, LINQ monitor at end of service, agent orange exposure, obesity
Medications: Albuterol, aspirin 81 mg a day, atorvastatin 20 mg a day on hold, Proscar 5 mg a day, Spiriva, pantoprazole, levothyroxine, Abilify, enoxaparin
122/59, pulse 66, Respiratory rate 16, weight is 83.2 kg, which is stable, he is comfortable, lungs are clear, irregular rate and rhythm, no obvious murmurs, still with winky block but rates overall seem better controlled, minimal edema, atrophic
changes of inclusion body myositis seen
Hemoglobin 12, platelets 86, continuing to drop, BUN and creatinine are 32 and 1.1, potassium is 4.6 sodium is 134
Objective
Labs:
07/31/25 03:49
07/31/25 03:49
Labs
Hgb 12.0 g/dL (13.0-18.0) L 07/31/25 03:49
Hct 36.2 % (39.0-52.0) L 07/31/25 03:49
Plt Count 86 10^3/uL (130-400) L 07/31/25 03:49
PT 13.8 Sec (11.4-14.6) 07/29/25 04:21
INR 1.08 07/29/25 04:21
APTT 35.1 Sec (23.4-35.0) H 07/29/25 04:21
Sodium 134 mmol/L (135-145) L 07/31/25 03:49
Potassium 4.6 mmol/L (3.5-5.1) 07/31/25 03:49
BUN 32 mg/dl (9-20) H 07/31/25 03:49
Creatinine 1.1 mg/dL (0.7-1.3) 07/31/25 03:49
Glucose 82 mg/dl (70-99) 07/31/25 03:49
Troponins
07/28/25
20:29
Troponin I 0.013
Vital Signs and I&O:
Vital Signs
Temp Pulse Resp BP Pulse Ox
36.9 C 66 16 122/59 95
07/31/25 08:00 07/31/25 07:31 07/31/25 07:31 07/31/25 08:00 07/31/25 07:31
Vital Signs
Temp Pulse Resp BP Pulse Ox
36.9 C 66 16 122/59 95
07/31/25 08:00 07/31/25 07:31 07/31/25 07:31 07/31/25 08:00 07/31/25 07:31
Intake & Output
07/29/25 07/30/25 07/31/25 08/01/25
07:59 07:59 07:59 07:59
Intake Total 840 / 1080 720 / 720
Output Total 350 / 450 455 / 530 1125 / 1125
Balance -350 / -450 385 / 550 -405 / -405
Physical Exam
Physical Exam
See above
--- NOTE | 2025-07-31 15:58 | W.PN.UPDATE ---
Update Note
Progress Note Update
Pt seen & evaluated at bedside, chart reviewed. Pt pleasant & cooperative today. Fully oriented. Reports feeling more clear headed today - was able to meaningfully discuss reasons for starting Abilify 1mg. Pt able to identify that he was not quite
himself, getting confused, paranoid at times - reports this improving today, though with intermittent residual sxs at times but better able to manage.
Continue Abilify 1mg daily
--- NOTE | 2025-07-31 18:00 | PTCARENOTE ---
Patient kept having moderate loose stools, applied fecal pouch.
[2025-07-31] MEDS: LOVENOX 40 MG SC (18:13)
[2025-07-31] MEDS: SPIRIVA RESPIMAT 2.5 MCG 2 PUFF INH (21:17)
[2025-08-01] VITALS (13 sets, daily range): BP systolic 102–169; BP diastolic 53–98; PULSE 62–72; O2SAT 98; BMI 23.9
[2025-08-01] MEDS: SYNTHROID 12.5 MCG PO (03:54)
--- NOTE | 2025-08-01 05:19 | PTCARENOTE ---
Assumed care at 1900. Second degree heart block on the monitor. Normothermic- no use of the alberto hugger overnight. Patient continues with visual hallucinations and confusion. Patient reports seeing 'cats and babies on the floor.' Emotional support
provided. Incontinent of large amounts of stool.
[2025-08-01] MEDS: VENTOLIN NEBULES 2.5 MG INH (07:17)
[2025-08-01 07:20] LABS: Blood Urea Nitrogen 25 mg/dl (9-20); Calcium 8.2 mg/dl (8.4-10.2); Carbon Dioxide 25 mmol/L (22-30); Chloride 105 mmol/L (98-107); Estimated Creatinine Clearance 85 ml/min; Glucose 87 mg/dl (70-99); Potassium 4.6 mmol/L (3.5-5.1); Sodium 133 mmol/L (135-145); eGFR > 60.00
[2025-08-01 07:44] LABS: Hematocrit 40.2 % (39.0-52.0); Hemoglobin 13.6 g/dL (13.0-18.0); Mean Corp Hgb Conc. 33.8 g/dL (33.0-37.0); Mean Corpuscular Volume 88.7 fL (80.0-94.0); Platelet Count 85 10^3/uL (130-400); Red Cell Dist. Width 15.7 % (11.5-14.5)
--- NOTE | 2025-08-01 09:19 | PN.CDI ---
CDI
- -
CDI:
Physician Documentation Request
Admit Date: 07/28/25 23:12
Dear Doctor Emily,
Please review the following and provide your response in the progress notes.
Clinical Indicators:
- Wound note indicates :
- Stage 1 left lateral ankle pressure injury, POA
- DTI right heel, POA
Physician documentation of the type and location of wounds is required for compliant documentation. Based on the above clinical findings and your assessment, please provide the following in your progress note:
1. Location of the ulcer/wound, including laterality.
2. Type (etiology) of ulcer/wound:
- Diabetic ulcer
- Arterial (ischemic) ulcer
- Traumatic wound
- Venous stasis ulcer
- Pressure (decubitus) ulcer
- Non-healing surgical wound
- Other
Use of terms such as suspected, likely, concern for, or probable (associated with a specific diagnosis that is being evaluated, monitored, or treated as if it exists) are acceptable and can be coded in the inpatient setting, when documented at the
time of discharge.
Thank you,
Richard Dent RN
CDI Specialist
Please use your independent medical judgment in providing your response.
*Source: National Pressure Ulcer Advisory Panel (NPUAP)
--- NOTE | 2025-08-01 09:23 | PN.CDI ---
CDI
- -
CDI:
Physician Documentation Request
Admit Date: 07/28/25 23:12
Dear Doctor Emily,
Please review the following and provide your response in the progress notes.
Clinical Indicators:
- 07/28 ER Physician 'change in mental status, back pain and worsening mobility'
- 07/29 Update H&P note 'altered mental status, hypothermia and bradycardia generalized weakness'
- 'Visual hallucination'
- 07/30 PN 'Very confused and paranoid would not let me examine him'
- 07/31 PN 'Patient is awake alert oriented x 3. Aware about surroundings and what is going on'
Please clarify in the Progress Notes and Discharge Summary which, if any of the following, is the most likely etiology of the confusion/altered mental status.
Encephalopathy - indicate type, such as metabolic, toxic, septic, alcoholic, anoxic, hypertensive etc. due to a specific condition such as UTI, CVA, hyponatremia etc.
Acute Delirium - indicate known or suspected etiology such as postoperative, due to opioids or other drugs etc. Can also indicate unknown or mixed etiologies.
Baseline Dementia - indicate type, such as Alzheimer's, senile, vascular, Lewy body etc., and any associated behavioral disturbances (aggressive, combative or violent behavior) if present
Acute or subacute confusional state due to (specify known or suspected etiology)
Other (please specify)
Use of terms such as suspected, likely, concern for, or probable (associated with a specific diagnosis that is being evaluated, monitored, or treated as if it exists) are acceptable and can be coded in the inpatient setting, when documented at the
time of discharge.
Thank you,
Richard Dent RN
CDI Specialist
Please use your independent medical judgment in providing your response.
--- NOTE | 2025-08-01 09:28 | W.PN.HOSP.TC ---
Today's Communication/Plan
-
- Downgrade to telemetry
- Continue Abilify. Appreciate psychiatry recommendations
Assessment / Plan
Assessment / Plan
# Hypothermia unclear reason
- No clear source of infection
- Admitted to rule out sepsis
- CRP and sed rate are normal
- Blood cultures without growth
- ID consulted - Antibiotics discontinued
- Given slightly elevated TSH, hypothermia and bradycardia a low-dose of Synthroid was started after discussion with cardiology
# Visual hallucination-head CT with chronic subdural hematoma.
- MRI of the brain-stable
- Paranoia
- Psychiatry consulted
- Patient was started on Abilify 1 mg
- Full cognitive workup outpatient after discharge
# Bradycardia
- First EKG showed intermittent Mobitz type II but second EKG is Mobitz type I and heart rate has improved.
- Patient not on any rate controlling agents as outpatient
- Cortisol level was stable
- Lyme study pending
- Echocardiogram completed
- Given slightly elevated TSH, hypothermia and bradycardia a low-dose of Synthroid was started after discussion with cardiology
- Cardiology consulted
#Delirium
- Unclear if it is hospital acquired
# Mild thrombocytopenia
- Continue to follow and trend
# History of hypertension
- holding antihypertensives- Norvasc and lisinopril
# History of AAA repair
- Continue aspirin and statin
# Sleep apnea
- Patient no longer on CPAP
# COPD
- Continue albuterol and Spiriva
#Stage 1 left lateral ankle pressure injury
- Present on admission
# History of left lower lobe focal bronchiectasis and chronic scarring
# History of pulmonary nodules
- Follows with Dr. Galan
# Hyperlipidemia
- Continue atorvastatin
# History of inclusion body myositis
- Wheelchair - bound for 11 years
# Enlarged prostate
- continue finasteride
# Vit D Deficiency
- Replace
# Ex-smoker
DVT PPx-subcutaneous heparin
CODE STATUS: Full code
Anticipated Discharge: 24 - 48 hours
Subjective/Interval History
-
Date of Service: August 01, 2025
Patient seen this morning at the bedside while OT was present. Patient was not very conversational.
Objective Data
-
Labs:
Laboratory Results
08/01/25
06:55
WBC 13.4 H
Hgb 13.6
Hct 40.2
Plt Count 85 L
Sodium 133 L
Potassium 4.6
Chloride 105
Carbon Dioxide 25
BUN 25 H
Creatinine 0.8
Glucose 87
Calcium 8.2 L
Vital Signs:
Vital Signs
Temp Pulse Resp BP Pulse Ox
97.7 F 59 16 141/84 98
08/01/25 08:00 08/01/25 08:00 08/01/25 08:00 08/01/25 08:00 08/01/25 08:00
I&O
07/31/25 08/01/25 08/02/25
06:59 06:59 06:59
Intake Total 720 / 720 360 / 360
Output Total 1125 / 1125 1025 / 1025 50 / 50
Balance -405 / -405 -665 / -665 -50 / -50
Review of Systems
-
History Source: Patient
Constitutional: Reports No Symptoms
EENT: Reports No Symptoms Reported
Respiratory: Reports No Symptoms
Cardiac: Reports No Symptoms
Abdomen/GI: Reports No Symptoms
Breast: Reports No Symptoms
Genitourinary: Reports No Symptoms
Musculoskeletal: Reports No Symptoms
Skin: Reports No Symptoms
Endocrine: Reports No Symptoms
Hematologic / Lymphatic: Reports No Symptoms
Allergy / Immunology: Reports No Symptoms
Physical Exam
-
General: Well Developed, Well Nourished, No Apparent Distress and Comfortable
HEENT: Normocephalic, Atraumatic and Moist Mucous Membranes
Respiratory: Clear to Auscultation
Cardiac: Regular Rhythm
GI: Soft, Nontender and Nondistended
Skin: Warm and Dry
Neuro: Awake and Alert
Psych: Calm
[2025-08-01] MEDS: ABILIFY 1 MG PO (09:54)
[2025-08-01] MEDS: LOW STRENGTH ASPIRIN 81 MG PO (09:54)
[2025-08-01] MEDS: PROSCAR 5 MG PO (09:56)
[2025-08-01] MEDS: NSS (PRESERVATIVE FREE) 10 ML IV (09:56)
[2025-08-01] MEDS: PROTONIX IV 40 MG IV (09:56)
[2025-08-01] MEDS: DESENEX/MITRAZOL/ZEASORB 1 APPLIC TOPICAL ×2 (09:56→20:44)
[2025-08-01] MEDS: VITAMIN D3 (cholecalciferol) 50 MCG PO (09:56)
--- NOTE | 2025-08-01 10:17 | W.PN.ID1 ---
Addendum entered and electronically signed by Purnima Askew MD 08/01/25 12:30:
I saw and evaluated the patient. I reviewed the resident�s note and agree with most of the findings and plan as documented in the resident�s note.
Pt hallucinating - he sees his [id number] in the room.
A/P
# Hypothermia resolved
# Bradycardia resolved. No need for PPM, per cardiollogy
# Encephalopathy persists
#Leukocytosis today
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
# Recent AAA EVAR 05/09/25
- No infectious etiology identified.
Blood cx's x2 neg to date
COVID/influenza neg
UA neg. CXR neg.
CT a/p unremarkable.
MRI brain small chronic subdural hematoma
No clinical history of tick exposure; lyme serologies sent by admitting team
-Continue to observe off abx.
-Trend wbc
# Left breast intertrigo candidiasis -improving
- Continue topical antifungal.
Original Note:
Date of Service
Date of Service: August 01, 2025
Today's Communication
- continue to observe
Assessment / Plan
Altered mental status with Hypothermia (resolved), Bradycardia ( resolved), Tachypnea ( resolved):
- Patients vitals are stable
-Suspect due to a metabolic cause more specifically myxedema coma (increased TSH and decreased T4 on admission with hypothermia, bradycardia, and a possible unknown recent trigger)
- Consulted for hypothermia presumed sepsis bradycardia secondary to unknown source.
- My suspicion for an infectious source and sepsis is low considering negative chest x-ray, abdominal CT, unremarkable urinalysis, normal WBC count, negative procalcitonin, and a lactate of 0.6.
- Discontinued the cefepime and vancomycin
- blood cultures negative
- Lyme test pending
- continue to follow
Leucocytosis:
- Today wbc count is 13.4 from 8.4 yesterday
- No fever, chills
- Suspect due to recent course of stress dose steroids that he received in the ED
Left breast Candidal Intertrigo:
- continue on miconazole nitrate
- improving from when I previously saw him
Chief Complaint
-: Other (AMS, bradycardia)
Subjective / Review of Systems
Review of Systems: No Fever, No Chills, No Headache, No Cough, No Chest Pain, No Palpitations, No Abdominal Pain, No Nausea, No Vomiting, No Diarrhea and No Joint Pain
Vital Signs / Physical Exam
Vital Signs
Vital Signs
Temp Pulse Resp BP Pulse Ox
97.7 F 59 16 141/84 98
08/01/25 08:00 08/01/25 08:00 08/01/25 08:00 08/01/25 08:00 08/01/25 08:00
Physical Exam
Constitutional: No Acute Distress
Cardiovascular: Regular Rate and S1/S2
Pulmonary: Clear and Symmetric
Gastrointestinal: Soft, Non Tender, Non Distended and Normal Bowel Sounds
Extremities: Negative Edema, Clubbing or Cyanosis
Skin: Warm, Dry and Other (left sided breast fold ryan intertrigo- improving)
Neurological: Awake and Alert; Negative Oriented (Not oriented to place. Patient is hallucinating small animals and also states that his brother in law is in the room. )
Psychological: Confused
Objective Data
Lab Data
Lab Results
08/01/25 06:55
08/01/25 06:55
ESR 7 mm/hour (0-20) 07/29/25 04:21
PT 13.8 Sec (11.4-14.6) 07/29/25 04:21
INR 1.08 07/29/25 04:21
APTT 35.1 Sec (23.4-35.0) H 07/29/25 04:21
Estimated Creat Clear 85 ml/min 08/01/25 06:55
Lactic Acid Cancelled 07/29/25 11:41
Total Bilirubin 0.7 mg/dl (0.2-1.3) 07/28/25 20:29
AST 55 U/L (17-59) 07/28/25 20:29
ALT 64 U/L (0-50) H 07/28/25 20:29
Alkaline Phosphatase 103 U/L (38-126) 07/28/25 20:29
C-Reactive Protein 10.00 mg/L (0.0-10.00) 07/29/25 04:21
Most recent labs reviewed.
Micro Results:
07/28/25 21:51 Blood Culture - Preliminary
Blood/Venous No Growth in 72 hours- Final report to follow
07/28/25 21:51 Blood Culture - Preliminary
Blood/Venous No Growth in 72 hours- Final report to follow
07/28/25 23:23 Influenza Types A & B (GIDEON) - Final
Nasal Swab Negative for Influenza A & B, NAAT
Negative results must be combined with clinical observations
and patient history.
Nucleic Acid Amplification test (NAAT)performed on the
[employer] platform.
Abdomen/ pelvis CT 07/28/25
IMPRESSION:
No renal or ureteral calculus. No bladder calculus. No obstructive uropathy. Stable renal cysts. Stable mild chronic perinephric soft tissue stranding.
Constipation. No bowel obstruction.
No acute inflammatory process within the abdomen or pelvis.
No vertebral compression deformity. No CT evidence to suggest discitis or osteomyelitis. Mild degenerative changes.
Previous endovascular aortic stent graft repair, with stable houlton aneurysm sac.
Chest Xray on 07/28/25
FINDINGS/impression:
Limited by the presence of external pacemaker pads. Patient rotated to left.
As far as visualized, no evidence of pneumonia or congestive heart failure. No pneumothorax. No radiographically demonstrable significant pleural effusion.
Head CT on 07/28/25:
IMPRESSION:
There is a small extra-axial collection in the left frontal region, with appearance and density compatible with a small chronic subdural hematoma, although new since examination 2016.
Consider follow-up CT evaluation to assess for interval change.
--- NOTE | 2025-08-01 12:44 | W.PN.CARDCBS ---
Today's Communication / Plan
-
Stable cardiac status
Still with Mobitz type I second-degree AV block but overall improved conduction
Hypothermia resolved
On low-dose levothyroxine -could this have possibly helped?
No new cardiac recommendations
No need for pacemaker
Impression / Plan
-
Primary Drywall Sander: Dr. Hopper of [facility]
Assessment:
Presentation with change in mental status
Weakness
Concern for UTI
Hypothermia
Second-degree AV block, Mobitz type I
Inclusion body myositis
Ambulatory dysfunction/wheelchair dependence
Hypertension
Hyperlipidemia
COPD
STEVE on CPAP
Infrarenal abdominal aortic aneurysm status post endovascular repair 04/2025
History of pauses status post Linq monitor 2016, now nonfunctional
History of agent orange exposure
Obesity
Possible small chronic left frontal subdural
ECHO 2016: EF 55 to 60%, mild concentric LVH, no significant valvular disease
Echocardiogram 07/29/2025: EF 55-60%, mild LVH, normal RV, normal left atrium, normal aortic and mitral valve, normal pulmonary artery systolic pressure
Plan:
He is stable/improved from a cardiac standpoint with persistent second-degree heart block but considerably diminished from admission.
No need for pacemaker.
His hypothyroidism has resolved, unclear why.
He is now on low-dose thyroid for a minimally elevated TSH. Could this have possibly helped?
Okay for discharge planning from cardiac standpoint
Progress Note - Drywall Sander
Subjective
Date of Service: August 01, 2025:
79-year-old man admitted with inclusion body myositis now with change in mental status associated with hypothermia and second-degree heart block, bradycardia, currently with heart rates in 60s.
PMH/PSH: Inclusion body myositis, wheelchair-bound, hypertension, hyperlipidemia, COPD, obstructive sleep apnea, endovascular repair of abdominal aortic aneurysm, LINQ monitor at end of service, agent orange exposure, obesity
Medications: Albuterol, aspirin 81 mg a day, atorvastatin 20 mg a day on hold, Proscar 5 mg a day, Spiriva, pantoprazole, levothyroxine, Abilify, enoxaparin
169/60, pulse 69, respiratory rate 20, afebrile, physical exam is unchanged, lungs are relatively clear with limited exam, irregular rate and rhythm, atrophic changes of inclusion body myositis seen in extremities with diffuse weakness, abdomen
benign, JVD okay
White count 13.4, hemoglobin 13.6, platelets 85, stable sodium 133, BUN and creatinine 25 and 0.8,
Objective
Labs:
08/01/25 06:55
08/01/25 06:55
Labs
Hgb 13.6 g/dL (13.0-18.0) 08/01/25 06:55
Hct 40.2 % (39.0-52.0) 08/01/25 06:55
Plt Count 85 10^3/uL (130-400) L 08/01/25 06:55
PT 13.8 Sec (11.4-14.6) 07/29/25 04:21
INR 1.08 07/29/25 04:21
APTT 35.1 Sec (23.4-35.0) H 07/29/25 04:21
Sodium 133 mmol/L (135-145) L 08/01/25 06:55
Potassium 4.6 mmol/L (3.5-5.1) 08/01/25 06:55
BUN 25 mg/dl (9-20) H 08/01/25 06:55
Creatinine 0.8 mg/dL (0.7-1.3) 08/01/25 06:55
Glucose 87 mg/dl (70-99) 08/01/25 06:55
Vital Signs and I&O:
Vital Signs
Temp Pulse Resp BP Pulse Ox
36.5 C 69 20 169/60 98
08/01/25 08:00 08/01/25 11:00 08/01/25 11:00 08/01/25 10:01 08/01/25 11:41
Vital Signs
Temp Pulse Resp BP Pulse Ox
36.5 C 69 20 169/60 98
08/01/25 08:00 08/01/25 11:00 08/01/25 11:00 08/01/25 10:01 08/01/25 11:41
Intake & Output
07/30/25 07/31/25 08/01/25 08/02/25
07:59 07:59 07:59 07:59
Intake Total 840 / 1080 720 / 720 360 / 360 240 / 240
Output Total 455 / 530 1125 / 1125 1025 / 1025 50 / 50
Balance 385 / 550 -405 / -405 -665 / -665 190 / 190
Physical Exam
Physical Exam
See above
--- NOTE | 2025-08-01 13:33 | W.PN.UPDATE ---
Addendum entered and electronically signed by Matt Diaz MD 08/01/25 14:56:
Delirium-unclear if it is hospital acquired
Addendum entered and electronically signed by Matt Diaz MD 08/01/25 14:48:
Stage 1 left lateral ankle pressure injury- Present on admission
Original Note:
Update Note
Progress Note Update
Seen and examined the patient with the resident. Plan formulated together. See changes in my documentation
79-year-old male was found to have altered mental status, hypothermia and bradycardia generalized weakness
CT abdomen pelvis-no ureteral calculus, bladder calculus or obstructive uropathy. Constipation. No acute inflammatory process in the abdomen. Previous endovascular aortic graft repair.
CT head-small extra-axial collection in the left frontal region with appearance and density compatible with small subdural hematoma new since 2015.
EKG reviewed by mt-Mobitz type II heart block with bradycardia rate 44
EKG 07/28/2025-morning looks like Mobitz type I with a rate of 73 bpm
Echo LV normal in size, EF 55 to 60%. Mild concentric LVH. Trace TR, PA pressure 27 mmHg.
MRI of the brain-subtle small chronic appearing extra-axial fluid collection in the left frontal region compared to the head CT from 07/29/2025
Pt is awake and alert aware about surroundings and what is going on. Mostly oriented but at times confused
Abdomen soft and nontender
Left breast fold looks much better redness much decreased
# Hypothermia unclear reason
No clear source of infection
Admitted to rule out sepsis
CRP and sed rate are normal
Blood cultures sent
ID evaluation appreciated
Antibiotics discontinued.
Given slightly elevated TSH, hypothermia and bradycardia a low-dose of Synthroid was started after discussion with cardiology
# Visual hallucination-head CT with chronic subdural hematoma.
MRI of the brain-stable
Paranoia
Psychiatry evaluation appreciated
Patient was started on Abilify last night 1 mg
As per discussion with the daughter the patient has been having some issues with doing intellectual tasks like operating his phone, his wheelchair, ordering groceries online etc. for the past couple of weeks..
I discussed about getting a formal cognitive evaluation as outpatient to rule out short-term memory loss.
# Bradycardia
First EKG showed intermittent Mobitz type II but second EKG is Mobitz type I and heart rate has improved.
Not on any rate controlling agents as outpatient
Cortisol level was stable
Lyme study pending
Echocardiogram as above
Given slightly elevated TSH, hypothermia and bradycardia a low-dose of Synthroid was started after discussion with cardiology
Cardiology Consult appreciated.
Cardiology notes reviewed-patient follows up with Dr. Hopper had a ZIO monitor 10/14/2024 which showed sinus rhythm with first-degree AV block and Wenckebach. Heart rate ranged from 42-128 occasional PVCs and PACs
# Mild thrombocytopenia-unclear reason. HIT panel ordered.
# History of hypertension-hold antihypertensives-Norvasc and lisinopril
# History of AAA repair-On aspirin and statin
# Sleep apnea-no longer on CPAP
# COPD-continue albuterol and Spiriva
# History of left lower lobe focal bronchiectasis and chronic scarring
# History of pulmonary nodules follows up with Dr. Galan
# Hyperlipidemia-continue atorvastatin
# History of inclusion body myositis-uses a wheelchair/scooter
# Enlarged prostate-continue finasteride
# Vit D Deficiency-replace
# Ex-smoker
# DVT prophylaxis-subcutaneous heparin
# Full code
Discussed with nursing at bedside
Patient's also got admitted here to the hospital .
Spoke to patient's daughter Essie and updated. She thinks that patient is best to be sent home and not to rehab. They have things set up for home and they may have to get nursing care for home for mom and dad as she feels that is the best for him.
Part of this note was cerated using voice recognition system. Occasional wrong word or��sound alike� substitutions may have inadvertently occurred due to the inherent limitations of voice recognition software. If noted kindly bring it to my
attention for correction.
--- NOTE | 2025-08-01 14:32 | PTCARENOTE ---
Rec'd pt from night RN this am at 07:15, pt has been AOx2, confused to place (recites home address when asked where he is right now) and still intermittently hallucinating, seeing a duck and photo frames on the floor. Forgetful to events, but
pleasant with staff. Pt having multiple episodes of incontinence both of bowel and urine. Daughters in to visit independently, plan of care discussed with care team. Safe environment continues. Downgraded to telemetry.
--- NOTE | 2025-08-01 15:58 | W.PN.UPDATE ---
Update Note
Progress Note Update
patient seen chart reviewed. discussed with dr villagomez and nursing as well as d at bedside. the patient was sitting up in bed attempting to feed himself diced pears. with some help from this radio news writer he was able to eat all of it. he was lying at a
curious angle in bed and did not seem to want to be moved. with the help of nursing we were able to straighten him out and he did accepted this seeming to do better afterward although i cannot say he conversed very much.. he was admitted for
confusion, change in mental status, hypothermia and bradycardia. workup is progressing. he was placed on abilify yesterday and there seems to have been some slight improvement in his mental status. he was calm and cooperative. did not make any
changes in his psych meds as workup progress. d asked if this was secondary to thryoid. tsh mildly elevated at 6.35 free t4 7.39 free t3 2.44 as per hospitalist. not sure what to make of random cortisol. would check b12 and folate.
--- NOTE | 2025-08-01 16:20 | PTCARENOTE ---
Pt assisted to sit on side of bed with PT/OT today, not able to stabilize self well, assist of 2 required for safety. Condom cath#25 provided for ongoing incontinence. Pericare frequently provided, sacrum/christine area CDI. Left knee foam replaced.
[2025-08-01] MEDS: LOVENOX 40 MG SC (17:18)
--- NOTE | 2025-08-01 17:21 | CM ---
Addendum entered by Jayant Urias 08/01/25 17:31:
First choice is [facility] then [facility] if family move forward with SNF.
Original Note:
F/U: PT/OT and SWEETIE Saba discussed this case. PT/OT aware that patient was Independent with transfers, but not today therefore, if this is what the family wants, then PT/OT is recommending rehab. CM spoke to daughter Essie who would prefer dad be
home, but knows that he would need to be close to baseline than he is now. The / mom is in the hospital. So the plan is to make referrals to 2 rehabs and see where things are when he is close to rehab. PLAN: SNF vs. Home.
--- NOTE | 2025-08-01 20:00 | PTCARENOTE ---
Assumed care of patient. Patient is drowsy but is alert and oriented x3. Afebrile, flaccid lower extremities, able to do simple commands with upper extremities. Second degree type 1 heart block on monitor, no edema, pulses palpable. Lungs clear on
RA. Abdomen is soft, non-tender, bowel sounds positive. Having multiple soft BMs. Condom catheter in place draining concentrated yellow urine. See separate skin documentation. IV sites c/d/i.
[2025-08-01] MEDS: SPIRIVA RESPIMAT 2.5 MCG 2 PUFF INH (20:10)
--- NOTE | 2025-08-01 20:41 | EEG.RPT ---
Electroencephalogram Report
Recording
Date of EE08/01/25
Type of EEG: Routine
Length of EEG recordin minutes
Done with Video Recording: Yes
Patient Status: Inpatient
Recording Conditions: Awake and Drowsy
Hyperventilation Performed: No
Photic Stimulation Performed: Yes
Report
Clinical methods:
A 21-channel digitized electroencephalogram was performed. The 10-20 International system of electrode placement was used. ECG was monitored. Video was recorded.
EEG Interpretation:
The posterior dominant rhythm reaches up to 9 Hz however for the most part it stayed around 7 to 8 Hz..
The background EEG activity did not show significant asymmetry of the frequency or the amplitude between the hemispheres.
Drowsiness was seen.
Hyperventilation was not performed.
Photic stimulation was performed but it did not show any significant change.
There was no epileptiform activity seen.
Clinical correlation:
This is a mildly abnormal EEG due to mild diffuse slowing of the background EEG activity. There was no epileptiform activity seen. This EEG is suggestive of mild-moderate encephalopathy. Clinical correlation is recommended.
[2025-08-01] MEDS: MELATONIN 5 MG PO (20:44)
[2025-08-02 03:00] VITALS: BP 138/85
[2025-08-02] MEDS: SYNTHROID 12.5 MCG PO (06:18)
[2025-08-02 06:42] LABS: Hematocrit 38.0 % (39.0-52.0); Hemoglobin 12.4 g/dL (13.0-18.0); Mean Corp Hgb Conc. 32.6 g/dL (33.0-37.0); Mean Corpuscular Volume 91.6 fL (80.0-94.0); Platelet Count 90 10^3/uL (130-400); Red Cell Dist. Width 15.8 % (11.5-14.5)
[2025-08-02 06:56] LABS: Blood Urea Nitrogen 23 mg/dl (9-20); Calcium 8.2 mg/dl (8.4-10.2); Carbon Dioxide 30 mmol/L (22-30); Chloride 103 mmol/L (98-107); Estimated Creatinine Clearance 85 ml/min; Glucose 75 mg/dl (70-99); Potassium 3.6 mmol/L (3.5-5.1); Sodium 133 mmol/L (135-145); eGFR > 60.00
[2025-08-02] MEDS: VENTOLIN NEBULES 2.5 MG INH (07:24)
--- NOTE | 2025-08-02 07:27 | PTCARENOTE ---
Pt rec'd from night RN in walking rounds, pt ambulating in room ad brian, o2 off, placing self on venimask intermittently. Will discuss plan of care with attending MD upon rounds. Pt with no complaints of chest pain, slept well overnight. Safe
environment maintained.
[2025-08-02 07:33] VITALS: BP 141/86
[2025-08-02 08:01] LABS: Folate 5.3 ng/ml (2.76-20); Vitamin B12 332 pg/ml (239-931)
[2025-08-02] MEDS: ABILIFY 1 MG PO (08:24)
[2025-08-02] MEDS: VITAMIN D3 (cholecalciferol) 50 MCG PO (08:24)
[2025-08-02] MEDS: LOW STRENGTH ASPIRIN 81 MG PO (08:24)
[2025-08-02] MEDS: DESENEX/MITRAZOL/ZEASORB 1 APPLIC TOPICAL ×2 (08:24→20:37)
[2025-08-02] MEDS: NSS (PRESERVATIVE FREE) 10 ML IV (08:25)
[2025-08-02] MEDS: PROSCAR 5 MG PO (08:25)
[2025-08-02] MEDS: PROTONIX IV 40 MG IV (08:25)
[2025-08-02] MEDS: VITAMIN B-12 1000 MCG PO (08:27)
--- NOTE | 2025-08-02 09:23 | W.PN.HOSP.TC ---
Addendum entered and electronically signed by Matt Diaz MD 08/02/25 13:34:
Seen and examined the patient earlier today. Agree with the plan formatted by the resident.
Late documentation. Patient's daughter was at bedside
His is his roommate now.
Patient is much awake alert oriented and back to himself. Patient also knows how to use his phone to call his daughter
79-year-old male was found to have altered mental status, hypothermia and bradycardia generalized weakness
CT abdomen pelvis-no ureteral calculus, bladder calculus or obstructive uropathy. Constipation. No acute inflammatory process in the abdomen. Previous endovascular aortic graft repair.
CT head-small extra-axial collection in the left frontal region with appearance and density compatible with small subdural hematoma new since 2015.
EKG reviewed by ca-Mobitz type II heart block with bradycardia rate 44
EKG 07/28/2025-morning looks like Mobitz type I with a rate of 73 bpm
Echo LV normal in size, EF 55 to 60%. Mild concentric LVH. Trace TR, PA pressure 27 mmHg.
MRI of the brain-subtle small chronic appearing extra-axial fluid collection in the left frontal region compared to the head CT from 07/29/2025
Abdomen soft and nontender
Left breast fold looks much better redness much decreased
Cardiovascular system S1-S2 appreciated
Chest clear to auscultation
No pedal edema
# Hypothermia unclear reason
No clear source of infection
Admitted to rule out sepsis
CRP and sed rate are normal
Blood cultures sent
ID evaluation appreciated
Antibiotics discontinued.
Given slightly elevated TSH, hypothermia and bradycardia a low-dose of Synthroid was started after discussion with cardiology
# Visual hallucination-head CT with chronic subdural hematoma.
Delirium improved-patient is much better today
MRI of the brain-stable
Paranoia
Psychiatry evaluation appreciated
Patient was started on Abilify last night 1 mg
As per discussion with the daughter the patient has been having some issues with doing intellectual tasks like operating his phone, his wheelchair, ordering groceries online etc. for the past couple of weeks..
I discussed about getting a formal cognitive evaluation as outpatient to rule out short-term memory loss.
# Bradycardia
First EKG showed intermittent Mobitz type II but second EKG is Mobitz type I and heart rate has improved.
Not on any rate controlling agents as outpatient
Cortisol level was stable
Lyme study pending
Echocardiogram as above
Given slightly elevated TSH, hypothermia and bradycardia a low-dose of Synthroid was started after discussion with cardiology
Cardiology Consult appreciated.
Cardiology notes reviewed-patient follows up with Dr. Hopper had a ZIO monitor 10/14/2024 which showed sinus rhythm with first-degree AV block and Wenckebach. Heart rate ranged from 42-128 occasional PVCs and PACs
# Mild thrombocytopenia-unclear reason. HIT panel ordered. Unlikely the reason. Thrombocytopenia improving
# History of hypertension-hold antihypertensives-Norvasc and lisinopril
# History of AAA repair-On aspirin and statin
# Sleep apnea-no longer on CPAP
# COPD-continue albuterol and Spiriva
# History of left lower lobe focal bronchiectasis and chronic scarring
# History of pulmonary nodules follows up with Dr. Galan
# Hyperlipidemia-continue atorvastatin
# History of inclusion body myositis-uses a wheelchair/scooter
# Enlarged prostate-continue finasteride
# Vit D Deficiency-replace
# Ex-smoker
# DVT prophylaxis-subcutaneous heparin
# Full code
Discussed with nursing at bedside
Discussed with patient's and daughter at bedside
Discussed with case management
Discharge planning
Part of this note was created using voice recognition system. Occasional wrong word or��sound alike� substitutions may have inadvertently occurred due to the inherent limitations of voice recognition software. If noted kindly bring it to my
attention for correction.
Original Note:
Today's Communication/Plan
-
- Reach out to case management to initiate dispo planning to SNF
- Platelets improving
- WBC normalized
Assessment / Plan
Assessment / Plan
# Hypothermia unclear reason
- No clear source of infection
- Admitted to rule out sepsis
- CRP and sed rate are normal
- Blood cultures without growth
- ID consulted - Antibiotics discontinued
- Given slightly elevated TSH, hypothermia and bradycardia a low-dose of Synthroid was started after discussion with cardiology
# Visual hallucination-head CT with chronic subdural hematoma.
- MRI of the brain-stable
- Paranoia
- Psychiatry consulted and following
- Patient was started on Abilify 1 mg
- Full cognitive workup outpatient after discharge
# Bradycardia
- First EKG showed intermittent Mobitz type II but second EKG is Mobitz type I and heart rate has improved.
- Patient not on any rate controlling agents as outpatient
- Cortisol level was stable
- Lyme study pending
- Echocardiogram completed
- Given slightly elevated TSH, hypothermia and bradycardia a low-dose of Synthroid was started after discussion with cardiology
- Cardiology consulted and following
#Delirium
- Unclear if it is hospital acquired
- Appears to be improved with in the same room
# Mild thrombocytopenia
- Continue to follow and trend
# History of hypertension
- holding antihypertensives- Norvasc and lisinopril
# History of AAA repair
- Continue aspirin and statin
# Sleep apnea
- Patient no longer on CPAP
# COPD
- Continue albuterol and Spiriva
#Stage 1 left lateral ankle pressure injury
- Present on admission
# History of left lower lobe focal bronchiectasis and chronic scarring
# History of pulmonary nodules
- Follows with Dr. Galan
# Hyperlipidemia
- Continue atorvastatin
# History of inclusion body myositis
- Wheelchair - bound for 11 years
# Enlarged prostate
- continue finasteride
# Vit D Deficiency
- Replace
# Ex-smoker
DVT PPx-subcutaneous heparin
CODE STATUS: Full code
Anticipated Discharge: Within 24 hours
Subjective/Interval History
-
Date of Service: August 02, 2025
Patient seen this morning at the bedside. Patient is now the same room as his who is also hospitalized at this time. Patient seemed more aware and alert. Patient knew where he was and he was able to identify himself and his . Patient
did not admit to seeing any hallucinations while he was in the room.
Objective Data
-
Labs:
Laboratory Results
08/02/25 08/02/25
06:04 06:05
WBC 10.1
Hgb 12.4 L
Hct 38.0 L
Plt Count 90 L
Sodium 133 L
Potassium 3.6
Chloride 103
Carbon Dioxide 30
BUN 23 H
Creatinine 0.8
Glucose 75
Calcium 8.2 L
Vital Signs:
Vital Signs
Temp Pulse Resp BP Pulse Ox
98.1 F 77 18 141/86 97
08/02/25 07:33 08/02/25 07:33 08/02/25 07:33 08/02/25 07:33 08/02/25 07:33
I&O
08/01/25 08/02/25 08/03/25
06:59 06:59 06:59
Intake Total 360 / 360 716 / 716
Output Total 1025 / 1025 725 / 725
Balance -665 / -665 -9 / -9
Review of Systems
-
History Source: Patient
Constitutional: Reports No Symptoms
EENT: Reports No Symptoms Reported
Respiratory: Reports No Symptoms
Cardiac: Reports No Symptoms
Abdomen/GI: Reports No Symptoms
Breast: Reports No Symptoms
Genitourinary: Reports No Symptoms
Musculoskeletal: Reports No Symptoms
Skin: Reports No Symptoms
Neuro: Reports No Symptoms
Endocrine: Reports No Symptoms
Hematologic / Lymphatic: Reports No Symptoms
Allergy / Immunology: Reports No Symptoms
Physical Exam
-
General: Well Developed, Well Nourished, No Apparent Distress and Comfortable
Respiratory: Clear to Auscultation
Cardiac: Regular Rhythm
GI: Soft, Nontender and Nondistended
Musculoskeletal: Other (Mild bilateral lower extremity)
Skin: Warm and Dry
Neuro: Awake, Alert and Oriented
Psych: Calm
[2025-08-02 11:19] VITALS: BP 125/70
--- NOTE | 2025-08-02 12:07 | W.PN.CARDCBS ---
Addendum entered and electronically signed by Anant Montenegro MD 08/02/25 14:51:
I saw and examined the patient.
The Automatic Lathe Tender's note was reviewed and I agree with the note.
Comment: Briefly, 79-year-old man presenting with bradycardia for which cardiology was consulted. Found to be hypothermic at the time of admission for unclear reasons. New to Synthroid for treatment of possible hypothyroidism.
Telemetry reviewed showing sinus rhythm with Wenckebach Mobitz type I which is a known diagnosis. No significant pauses or high-grade AV block noted.
Patient tells me he is asymptomatic without any presyncope or syncope.
No indication for permanent pacemaker at this time
We discussed following up with his primary occupational rehabilitation aide Dr. Hopper
Discussed with patient's and daughter at bedside
We will sign off, please recall as needed
Original Note:
Today's Communication / Plan
-
No indication for PPM
Patient should follow-up with his outpatient occupational rehabilitation aide
Please call back with questions
Impression / Plan
-
PCP: Dr. Mckee
Primary Retail Bakery Manager: Dr. Hopper of [facility]
Impression:
Presentation with change in mental status 07/28/25
Weakness
Concern for UTI
Hypothermia
Second-degree AV block, Mobitz type I
Inclusion body myositis
Ambulatory dysfunction/wheelchair dependence
Hypertension
Hyperlipidemia
COPD
STEVE on CPAP
Infrarenal abdominal aortic aneurysm status post endovascular repair 04/2025
History of pauses status post Linq monitor 2016, now nonfunctional
History of agent orange exposure
Obesity
Possible small chronic left frontal subdural
ECHO 2016: EF 55 to 60%, mild concentric LVH, no significant valvular disease
Echo 07/29/2025: EF 55-60%, mild LVH, normal RV, normal left atrium, normal aortic and mitral valve, normal pulmonary artery systolic pressure
Plan:
-Patient was initially admitted with generalized weakness and changes in mental status and cardiology was later consulted for Mobitz 1 heart block.
-Patient was managed for hypothermia of unclear etiology. There is no evidence of infection. Patient was eventually started on Synthroid for a minimally elevated TSH.
-Psychiatry following as well and patient was started on Abilify which also may have helped with clearing the changes in mental status he had on admission.
-From a cardiac standpoint the patient has a history of sinus pauses prompting Linq monitor implantation in 2016, Linq monitor no longer functional. Telemetry monitoring this admission initially showed bradycardia and then more of a Mobitz type II
(Wenckebach). Patient reports he has heard the term Wenckebach in the past from his primary occupational rehabilitation aide at [facility] and that he monitors his HR on a daily basis with his smart watch most of the time.
-Telemetry reviewed by me on 08/02/2025 no evidence of higher grade heart block or significant pauses.
-No indication for PPM
-Patient should follow-up with his outpatient occupational rehabilitation aide and no additional input from cardiology at this time, please call back if needed
Progress Note - Retail Bakery Manager
Subjective
Date of Service: August 02, 2025
He says he feels much clearer today, denies any chest pain
Objective
Labs:
08/02/25 06:05
08/02/25 06:04
Labs
Hgb 12.4 g/dL (13.0-18.0) L 08/02/25 06:05
Hct 38.0 % (39.0-52.0) L 08/02/25 06:05
Plt Count 90 10^3/uL (130-400) L 08/02/25 06:05
PT 13.8 Sec (11.4-14.6) 07/29/25 04:21
INR 1.08 07/29/25 04:21
APTT 35.1 Sec (23.4-35.0) H 07/29/25 04:21
Sodium 133 mmol/L (135-145) L 08/02/25 06:04
Potassium 3.6 mmol/L (3.5-5.1) 08/02/25 06:04
BUN 23 mg/dl (9-20) H 08/02/25 06:04
Creatinine 0.8 mg/dL (0.7-1.3) 08/02/25 06:04
Glucose 75 mg/dl (70-99) 08/02/25 06:04
Vital Signs and I&O:
Vital Signs
Temp Pulse Resp BP Pulse Ox
98.1 F 84 16 125/70 99
08/02/25 07:33 08/02/25 11:19 08/02/25 11:19 08/02/25 11:19 08/02/25 11:19
Vital Signs
Temp Pulse Resp BP Pulse Ox
98.1 F 84 16 125/70 99
08/02/25 07:33 08/02/25 11:19 08/02/25 11:19 08/02/25 11:19 08/02/25 11:19
Intake & Output
07/31/25 08/01/25 08/02/25 08/03/25
06:59 06:59 06:59 06:59
Intake Total 720 / 720 360 / 360 716 / 716
Output Total 1125 / 1125 1025 / 1025 725 / 725
Balance -405 / -405 -665 / -665 -9 / -9
Physical Exam
Physical Exam
GEN: AAO x 3
LUNGS: RA. No audible wheeze
CV: SR on telemetry.
EXT: No edema B/L LE
NEURO: Gross non-focal
SKIN: No rash
--- NOTE | 2025-08-02 12:18 | W.PN.UPDATE ---
Update Note
Progress Note Update
patient seen chart reviewed. spoke with nursing mr dasilva now has a roommate...his . they were sitting companionably side by side. she reports he is back to his normal self. he was indeed more communicative and appeared to be fully oriented
and attentive. nursing reports he has been cooperative and appropriately interactive. there is still no clear reason for the change in mental status or for the physiologic changes (bradycardia and hypothermia) noted on admit. he is now on synthroid.
tomorrow if his mental status remains good would dc abilify.
[2025-08-02 12:28] LABS: Lyme Antibody Screen, EIA Negative (Negative)
[2025-08-02 15:01] VITALS: BP 139/64
--- NOTE | 2025-08-02 15:07 | W.PN.ID1 ---
Date of Service
Date of Service: August 02, 2025
Today's Communication
ID will sign off.
Assessment / Plan
# Hypothermia resolved
# Bradycardia resolved. No need for PPM, per cardiollogy
# Encephalopathy resolving
# Transient leukocytosis, resolved
# New dx hypothyroid - on levothyroxine
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
# Recent AAA EVAR 05/09/25
- No infectious etiology identified.
Blood cx's x2 neg
COVID/influenza neg
UA neg. CXR neg.
CT a/p unremarkable.
MRI brain small chronic subdural hematoma
No clinical history of tick exposure; lyme negative
-Continue to observe off abx
# Left breast intertrigo candidiasis -improving
- Continue topical antifungal.
ID will sign off.
Chief Complaint
-: Other (AMS, bradycardia)
Subjective / Review of Systems
Patient is alert, eating lunch. at bedside reports he is no longer hallucinating.
Patient able to converse sensibly.
Vital Signs / Physical Exam
Vital Signs
Vital Signs
Temp Pulse Resp BP Pulse Ox
98.1 F 82 18 139/64 99
08/02/25 07:33 08/02/25 15:01 08/02/25 15:01 08/02/25 15:01 08/02/25 15:01
Physical Exam
Constitutional: No Acute Distress, Comfortable and Non-toxic
Eyes: No Conjunctival Hemorrhage and Sclera Anicteric
Cardiovascular: Regular Rate and S1/S2
Pulmonary: Clear
Gastrointestinal: Soft, Non Tender, Non Distended and Normal Bowel Sounds
Extremities: Negative Edema
Neurological: AO x 3
Psychological: Calm
Objective Data
Lab Data
Lab Results
08/02/25 06:05
08/02/25 06:04
ESR 7 mm/hour (0-20) 07/29/25 04:21
PT 13.8 Sec (11.4-14.6) 07/29/25 04:21
INR 1.08 07/29/25 04:21
APTT 35.1 Sec (23.4-35.0) H 07/29/25 04:21
Estimated Creat Clear 85 ml/min 08/02/25 06:04
Lactic Acid Cancelled 07/29/25 11:41
Total Bilirubin 0.7 mg/dl (0.2-1.3) 07/28/25 20:29
AST 55 U/L (17-59) 07/28/25 20:29
ALT 64 U/L (0-50) H 07/28/25 20:29
Alkaline Phosphatase 103 U/L (38-126) 07/28/25 20:29
C-Reactive Protein 10.00 mg/L (0.0-10.00) 07/29/25 04:21
Most recent labs reviewed.
Micro Results:
07/28/25 21:51 Blood Culture - Preliminary
Blood/Venous No Growth in 4 days- Final report to follow
07/28/25 21:51 Blood Culture - Preliminary
Blood/Venous No Growth in 4 days- Final report to follow
07/28/25 23:23 Influenza Types A & B (GIDEON) - Final
Nasal Swab Negative for Influenza A & B, NAAT
Negative results must be combined with clinical observations
and patient history.
Nucleic Acid Amplification test (NAAT)performed on the
[employer] platform.
Abdomen/ pelvis CT 07/28/25
IMPRESSION:
No renal or ureteral calculus. No bladder calculus. No obstructive uropathy. Stable renal cysts. Stable mild chronic perinephric soft tissue stranding.
Constipation. No bowel obstruction.
No acute inflammatory process within the abdomen or pelvis.
No vertebral compression deformity. No CT evidence to suggest discitis or osteomyelitis. Mild degenerative changes.
Previous endovascular aortic stent graft repair, with stable [place]nine [place] aneurysm sac.
Chest Xray on 07/28/25
FINDINGS/impression:
Limited by the presence of external pacemaker pads. Patient rotated to left.
As far as visualized, no evidence of pneumonia or congestive heart failure. No pneumothorax. No radiographically demonstrable significant pleural effusion.
Head CT on 07/28/25:
IMPRESSION:
There is a small extra-axial collection in the left frontal region, with appearance and density compatible with a small chronic subdural hematoma, although new since examination 2016.
Consider follow-up CT evaluation to assess for interval change.
[2025-08-02] MEDS: LOVENOX 40 MG SC (17:02)
[2025-08-02 19:24] VITALS: BP 131/89
[2025-08-02] MEDS: MELATONIN 5 MG PO (20:36)
[2025-08-02] MEDS: SPIRIVA RESPIMAT 2.5 MCG INH (21:00)
[2025-08-02 23:19] VITALS: BP 143/81
[2025-08-03 03:44] VITALS: BP 142/74
[2025-08-03] MEDS: SYNTHROID 12.5 MCG PO (06:26)
[2025-08-03 07:00] VITALS: BP 157/83
[2025-08-03 07:08] LABS: Blood Urea Nitrogen 21 mg/dl (9-20); Calcium 8.1 mg/dl (8.4-10.2); Carbon Dioxide 30 mmol/L (22-30); Chloride 103 mmol/L (98-107); Estimated Creatinine Clearance 97 ml/min; Glucose 79 mg/dl (70-99); Potassium 3.7 mmol/L (3.5-5.1); Sodium 133 mmol/L (135-145); eGFR > 60.00
[2025-08-03 07:10] LABS: Hematocrit 36.5 % (39.0-52.0); Hemoglobin 12.0 g/dL (13.0-18.0); Mean Corp Hgb Conc. 32.9 g/dL (33.0-37.0); Mean Corpuscular Volume 89.2 fL (80.0-94.0); Platelet Count 104 10^3/uL (130-400); Red Cell Dist. Width 15.9 % (11.5-14.5)
[2025-08-03] MEDS: VENTOLIN NEBULES 2.5 MG INH (07:22)
[2025-08-03] MEDS: ABILIFY 1 MG PO (08:56)
[2025-08-03] MEDS: LOW STRENGTH ASPIRIN 81 MG PO (08:57)
[2025-08-03] MEDS: PROTONIX IV 40 MG IV (08:57)
[2025-08-03] MEDS: DESENEX/MITRAZOL/ZEASORB 1 APPLIC TOPICAL (08:57)
[2025-08-03] MEDS: PROSCAR 5 MG PO (08:57)
[2025-08-03] MEDS: VITAMIN B-12 1000 MCG PO (08:57)
[2025-08-03] MEDS: NSS (PRESERVATIVE FREE) 10 ML IV (08:57)
[2025-08-03] MEDS: VITAMIN D3 (cholecalciferol) 50 MCG PO (08:57)
[2025-08-03 10:51] VITALS: BP 169/100
[2025-08-03 11:00] VITALS: BP 147/87
--- NOTE | 2025-08-03 11:52 | W.PN.UPDATE ---
Update Note
Progress Note Update
patient seen chart reviewed. met with patient and his who is sharing a hospital room with him. also daughter rony present at bedside. mr dasilva is doing quite well at this point. up until today he had been taking abilify one mg daily and
we discussed whether to continue it. he said that when he came in he was upset that he was in hosp and he was tired of answering questions like 'where are you what day is it' daughter says that he is normally a mellow person and she does not
feel he has experienced in the home agitation and irritability. so....a decision made to not continue abilify at [place]. d is trying to set up a home health aide.. patient does have in home PT twice weekly. mr dasilva has improved significantly
since admit. delirium seems resolved. no psych meds at [place] (melatonin for sleep )
--- NOTE | 2025-08-03 13:51 | W.PN.UPDATE ---
Addendum entered and electronically signed by Tiffany Duran MD 08/04/25 14:06:
Total DC time 51 minutes
Original Note:
Update Note
Progress Note Update
Patient seen with residents.
A/P:
# Hypothermia unclear reason, resolved
No clear source of infection
CRP and sed rate are normal
Blood cultures neg
ID evaluation appreciated. Antibiotics discontinued.
Given slightly elevated TSH at 6.35 (FT4 at 7.39), with hypothermia and bradycardia, low-dose Synthroid at 12.5 mcg daily was started, cont going forward and check repeat TSH reflex FT4 in 4-6 weeks with PCP
# Visual hallucination, resolved
head CT with chronic subdural hematoma.
MRI of the brain-stable
Delirium resolved with by his side
DC Abilify
Appreciate Psychiatry input
Agree with formal cognitive evaluation as outpatient to rule out short-term memory loss.
Noted low B12 level, started supplement
# Bradycardia, 2/2 Mobitz type I per card
Not on any rate controlling agents as outpatient
Cortisol level was stable
Lyme Ab negative
low-dose Synthroid at 12.5 mcg daily was started, resulting in improved HR
Other medical conditions:
# Mild thrombocytopenia- unclear reason. Thrombocytopenia improving
# History of hypertension- resume home meds
# History of AAA repair on aspirin and statin
# Sleep apnea- no longer on CPAP
# COPD- continue albuterol and Spiriva
# History of left lower lobe focal bronchiectasis and chronic scarring
# History of pulmonary nodules follows up with Dr. Galan
# Hyperlipidemia- continue atorvastatin
# History of inclusion body myositis- uses a wheelchair/scooter
# Enlarged prostate- continue finasteride
# Vit D Deficiency- replace
DVT prophylaxis-subcutaneous heparin
Full code
Discussed with patient's at bedside
total time 51 min
[2025-08-03 14:24] VITALS: BP 144/79
--- NOTE | 2025-08-03 14:37 | W.PN.HOSP.TC ---
Today's Communication/Plan
-
- Discharge home today with visiting nursing
- Will discharge with vitamin D supplementation and vitamin B-12 supplementation
- Continue Synthroid
Assessment / Plan
Assessment / Plan
# Hypothermia unclear reason
- No clear source of infection
- Admitted to rule out sepsis
- CRP and sed rate are normal
- Blood cultures without growth
- ID consulted - Antibiotics discontinued
- Given slightly elevated TSH, hypothermia and bradycardia a low-dose of Synthroid was started after discussion with cardiology
- Patient will be continued on synthroid at discharge
# Visual hallucination-head CT with chronic subdural hematoma.
- MRI of the brain-stable
- Paranoia
- Psychiatry consulted and following
- Patient was started on Abilify 1 mg - discontinued since patient is at [facility] now
- Full cognitive workup outpatient after discharge
# Bradycardia
- First EKG showed intermittent Mobitz type II but second EKG is Mobitz type I and heart rate has improved.
- Patient not on any rate controlling agents as outpatient
- Cortisol level was stable
- Lyme study negative
- Echocardiogram completed - estimated ejection fraction of 55-60%
- Given slightly elevated TSH, hypothermia and bradycardia a low-dose of Synthroid was started after discussion with cardiology
- Cardiology consulted and following - no need for pacemaker at this time.
#Delirium
- Unclear if it is hospital acquired
- Appears to be improved with in the same room
#Need for hospital bed
- Patient's condition requires positioning of the body, which is not feasible with an ordinary bed
- Patient needs frequent and immediate changes in body position
# Mild thrombocytopenia
- Continue to follow and trend
# History of hypertension
- holding antihypertensives- Norvasc and lisinopril
- will restart at discharge
# History of AAA repair
- Continue aspirin and statin
# Sleep apnea
- Patient no longer on CPAP
# COPD
- Continue home medications
#Stage 1 left lateral ankle pressure injury
- Present on admission
# History of left lower lobe focal bronchiectasis and chronic scarring
# History of pulmonary nodules
- Follows with Dr. Galan
# Hyperlipidemia
- Continue atorvastatin
# History of inclusion body myositis
- Wheelchair - bound for 11 years
# Enlarged prostate
- continue finasteride
# Vit D Deficiency
- Replace at discharge
# Ex-smoker
DVT PPx-subcutaneous heparin
CODE STATUS: Full code
Anticipated Discharge: Today
Subjective/Interval History
-
Date of Service: August 03, 2025
Objective Data
-
Labs:
Laboratory Results
08/03/25
06:19
WBC 8.0
Hgb 12.0 L
Hct 36.5 L
Plt Count 104 L
Sodium 133 L
Potassium 3.7
Chloride 103
Carbon Dioxide 30
BUN 21 H
Creatinine 0.7
Glucose 79
Calcium 8.1 L
Vital Signs:
Vital Signs
Temp Pulse Resp BP Pulse Ox
97.3 F 83 18 144/79 97
08/03/25 14:24 08/03/25 14:24 08/03/25 14:24 08/03/25 14:24 08/03/25 14:24
I&O
08/02/25 08/03/25 08/04/25
06:59 06:59 06:59
Intake Total 716 / 716 450 / 450
Output Total 725 / 725 750 / 750
Balance -9 / -9 -300 / -300
Review of Systems
-
History Source: Patient
Constitutional: Reports No Symptoms
EENT: Reports No Symptoms Reported
Respiratory: Reports No Symptoms
Cardiac: Reports No Symptoms
Abdomen/GI: Reports No Symptoms
Genitourinary: Reports No Symptoms
Musculoskeletal: Reports Other (generalized muscle weakness)
Skin: Reports No Symptoms
Neuro: Reports No Symptoms
Endocrine: Reports No Symptoms
Hematologic / Lymphatic: Reports No Symptoms
Allergy / Immunology: Reports No Symptoms
Physical Exam
-
General: Well Developed, Well Nourished, No Apparent Distress and Comfortable
HEENT: Normocephalic, Atraumatic and Moist Mucous Membranes
Respiratory: Clear to Auscultation
Cardiac: Regular Rhythm
GI: Soft, Nontender and Nondistended
Musculoskeletal: No Edema
Skin: Warm and Dry
Neuro: Awake, Alert and Oriented
Psych: Calm
--- NOTE | 2025-08-03 14:45 | CM ---
Addendum entered by Madeline Lyle RN 08/03/25 17:28:
After discharge received a request for hospital bed . placed note for need. Faxed scrpt and clinical to [facility] # [phone] fax [phone] as family request.
Addendum entered by Madeline Lyle RN 08/03/25 15:50:
Essie villagomez said she was going to hire [facility] economics consultant Juan was here to speak with patient. and patient are resistant for pt to go to SNF.
Original Note:
MD entered order for discharge.
PT indicates SNF.
As per liaisons [facility] have no beds.
Essie chaidezt aware of above . Pt is refusing SnF . Family is interviewing private pay care givers.
Pt has home PT [facility] by [facility]. They want to continue home PT . Company is [employer] in [place] spoke with Aleisha [phone] she said fax order they will resume.DGt give information. Sgt aware that it is PT OT only.
Brother in law will be transporting pt home with [employer] van .
Family has ordered pan lift and hospital bed at home.
PLAN Home with private care givers family and PT by [facility] PT fax [phone]
--- NOTE | 2025-08-03 15:05 | W.DCSUMMARY ---
Documented by User: Erica Harmon DO, Resident 08/03/25 15:18
Discharge Summary
Discharge Data
Date of Admission: 07/28/25
Date of Discharge: 08/03/25
-
Pending Results: No
Hospital Course
Primary diagnosis: Hypothermia unclear etiology, bradycardia, inclusion body myositis
Secondary diagnosis: Visual hallucinations, chronic subdural hematoma, mild thrombocytopenia, hypertension, history of AAA repair, COPD,
Hospital course:
Patient is a 79-year-old male with PMH significant for inclusion body myositis has been wheelchair-bound for [address] [facility] for altered mental status, hypothermia and bradycardia along with generalized weakness. Patient has been
experiencing an increase in generalized weakness for the last few weeks, having difficulty with transitioning from motorized wheelchair to bed and also not being able to drive any longer due to foot weakness. In the ED patient was found to be
hypothermic, bradycardic. EKG indicated Mobitz type II heart block with bradycardia at a rate of 44. CT abdomen pelvis was negative. CT head indicated a small extra-axial collection of fluid in the left frontal region with appearance compatible
with a small subdural hematoma, and brain MRI the next day confirmed same finding of a chronic subdural hematoma.
Patient was admitted for further workup of hypothermia. Over the course of the hospitalization, source of hypothermia did not reveal itself. Patient had a completely negative infectious workup. Cardiology was consulted and determined the patient
did not need a pacemaker at this time. Patient found to have a slightly elevated TSH and was started on low-dose of Synthroid. Patient also found to have low vitamin D and B12. Bradycardia improved with returning to normal temperature.
Patient did experience hallucinations and paranoia, for which psych was consulted. This was determined to be delirium, unclear if hospital-acquired, for which she received Abilify as per psychiatry recommendations. Patient's mood improved when he
was moved into the same room as his . Patient no longer endorses hallucinations and is returned to baseline. Abilify was stopped.
PT/OT saw patient and advised discharge to rehab, however patient is refusing SNF at this time. Patient will be discharged home with visiting nursing.
Imaging:
07/28/25 CT abdomen pelvis
IMPRESSION:
No renal or ureteral calculus. No bladder calculus. No obstructive uropathy. Stable renal cysts. Stable mild chronic perinephric soft tissue stranding.
Constipation. No bowel obstruction.
No acute inflammatory process within the abdomen or pelvis.
No vertebral compression deformity. No CT evidence to suggest discitis or osteomyelitis. Mild degenerative changes.
Previous endovascular aortic stent graft repair, with stable [place] aneurysm sac.
07/28/25 chest x-ray
FINDINGS/impression:
Limited by the presence of external pacemaker pads. Patient rotated to left.
As far as visualized, no evidence of pneumonia or congestive heart failure. No pneumothorax. No radiographically demonstrable significant pleural effusion.
07/29/[address]
IMPRESSION:
There is a small extra-axial collection in the left frontal region, with appearance and density compatible with a small chronic subdural hematoma, although new since examination 2016.
Consider follow-up CT evaluation to assess for interval change.
07/30/2025 brain MRI
IMPRESSION:
Stable small chronic appearing extra-axial fluid collection in the left frontal region compared to the head CT from 07/29/2025.
07/31/2025 peripheral vascular ultrasound
IMPRESSION: No evidence of deep venous thrombosis bilaterally.
Discharge Plan
-
Patient Disposition: Home with Home Care
Discharge Diagnosis/Procedures: Hypothermia (resolved)
Bradycardia (resolved)
Visual hallucinations (resolved)
Delirium (resolved)
Small chronic subdural hematoma on brain imaging
Condition: Fair
Diet: No restrictions
Activity: As tolerated
Driving Restrictions: No driving
Bathing Restrictions: None
Other Services: VN
Activity Restrictions/Additional Instructions:
Wound Care Instructions
L knee: clean with soap and water, dry dressing, change q 2 days and prn soilage.
L and R axilla: Vashe to clean/soak pat dry then dust with fungal powder bid.
Barrier cream to penis daily and prn soilage
offloading heel boots when in bed, can take upon discharge
Follow up at wound care center if wounds don't heal, call for an appointment.
In 8 weeks after completing the high-dose vitamin D supplementation, please get blood work done. Prescription provided.
Referrals:
Thierno Mckee DO [Family Provider, Family Practice] - in less than 1 week
Jamey Hopper MD [Active, Internal Medicine] - in two to three weeks
Additional Discharge Medication Instructions: Vitamin D dosing instructions:
Please take 1 cholecalciferol 50,000 unit capsule per week for the next 8 weeks.
Then please start taking cholecalciferol 2000 IU daily.
Please take vitamin B12 daily.
Please take levothyroxine 12.5 mcg daily.
Prescriptions:
New
levothyroxine 25 mcg Tablet
12.5 mcg PO DAILY @ 0600 30 Days Qty: 15 0RF
cyanocobalamin (vitamin B-12) 500 mcg Tablet
1,000 mcg PO DAILY 30 Days Qty: 60 0RF
cholecalciferol (vitamin D3) 1,250 mcg (50,000 unit) capsule
1,250 mcg PO QWEEK Qty: 8 0RF
cholecalciferol (vitamin D3) 50 mcg (2,000 unit) Tablet
50 mcg PO DAILY Qty: 0 0RF
(DME) TSH, Vitamin D, Vitamin B12
See Rx Instructions .Route .MEDSUPPLY Qty: 1 0RF
Rx Instructions:
DX: hypothyroidism, vitamin D deficiency, vitamin B12 deficiency
Bloodwork Tests: TSH with reflex to T4, 25 hydroxy vitamin D, vitamin B12
Continued
lisinopril 40 MG tablet
40 mg PO QPM
finasteride 5 MG tablet
5 mg PO DAILY
atorvastatin 20 MG tablet
20 mg PO QPM
albuterol sulfate [Ventolin HFA] 1 PUFF HFA aerosol inhaler
2 puff inhalation R Q8HPRN PRN (Reason: sob)
albuterol sulfate 2.5 mg /3 mL (0.083 %) Solution For Nebulization
2.5 mg INHALATION R Q6HPRN PRN (Reason: sob)
amlodipine 5 mg Tablet
5 mg PO QPM
aspirin 81 mg Tablet,Chewable
81 mg PO DAILY Qty: 90 0RF
Stiolto Respimat 2.5-2.5 mcg/actuation Mist
2 puff INHALATION R DAILY
Discharge Orders:
Discharge Patient (As Directed); Ordered 08/03/25
Ordered By: Erica Harmon
Discharge Date and Time
Discharge Date/Time: 08/03/25 16:10
Print Language: ECUADOREAN

Documented by User: Tiffany Duran MD 08/04/25 14:05
Discharge Summary
Discharge Data
Date of Admission: 07/28/25
Date of Discharge: 08/03/25
Hospital Course
Primary diagnosis: Hypothermia with bradycardia, possible subclinical hypothyroidism
Secondary diagnosis: Visual hallucinations, chronic subdural hematoma, mild thrombocytopenia, hypertension, history of AAA repair, COPD,
Hospital course:
Patient is a 79-year-old male with PMH significant for inclusion body myositis and has been wheelchair-bound for 11 years, presented with altered mental status, hypothermia and bradycardia along with generalized weakness. Patient has been
experiencing an increase in generalized weakness for the last few weeks, with difficulty transitioning from motorized wheelchair to bed, and also not been able to drive any longer due to foot weakness.
His CT head indicated a small extra-axial collection of fluid in the left frontal region with appearance compatible with a small subdural hematoma, and his brain MRI confirmed same finding of a chronic subdural hematoma.
The patient was found to be hypothermic and bradycardic. Infectious workup was negative. Cardiology was consulted, and indicated a pacemaker is not warranted at this time.
He was found to have a slightly elevated TSH at 6.35 (FT4 at 7.39), hence low-dose Synthroid at 12.5 mcg was started. His hypothermia and bradycardia resolved with initiation of Synthroid.
Vitamin D and B12 level were also checked as part of the comprehensive workup, and he was noted to have both vitamin deficiencies. He can continue with vitamin repletion outpatient.
His was also admitted in the hospital, and was kept in the same room as the patient. This significantly improved the patient's mental status and function.
His mental status returned to baseline according to his . He was briefly put on Abilify per psychiatry for his paranoia, and this was discontinued with his improved mental status.
He was discharged home with home health, and he can follow-up with his PCP for repeat TSH reflex FT4 in 4 to 6 weeks.
Imaging:
07/28/25 CT abdomen pelvis
IMPRESSION:
No renal or ureteral calculus. No bladder calculus. No obstructive uropathy. Stable renal cysts. Stable mild chronic perinephric soft tissue stranding.
Constipation. No bowel obstruction.
No acute inflammatory process within the abdomen or pelvis.
No vertebral compression deformity. No CT evidence to suggest discitis or osteomyelitis. Mild degenerative changes.
Previous endovascular aortic stent graft repair, with stable [place] aneurysm sac.
07/28/25 chest x-ray
FINDINGS/impression:
Limited by the presence of external pacemaker pads. Patient rotated to left.
As far as visualized, no evidence of pneumonia or congestive heart failure. No pneumothorax. No radiographically demonstrable significant pleural effusion.
07/29/[address]
IMPRESSION:
There is a small extra-axial collection in the left frontal region, with appearance and density compatible with a small chronic subdural hematoma, although new since examination 2015.
Consider follow-up CT evaluation to assess for interval change.
07/30/2025 brain MRI
IMPRESSION:
Stable small chronic appearing extra-axial fluid collection in the left frontal region compared to the head CT from 07/29/2025.
07/31/2025 peripheral vascular ultrasound
== END 2025-08-03 16:10 | disposition home health service (06) | DRG 545 ==
LOC: 3 WEST ACU 23:12
PROVIDERS: Hospitalist; Physician Assistant Medical; Psychiatry & Neurology Psychiatry; ADMITTING PHYSICIAN Internal Medicine; ATTENDING PHYSICIAN Internal Medicine; CONSULT PHYSICIAN Psychiatry & Neurology Psychiatry; EMERGENCY PHYSICIAN Emergency Medicine; FAMILY PHYSICIAN Family Medicine; OTHER PHYSICIAN Internal Medicine Cardiovascular Disease; OTHER PHYSICIAN Internal Medicine Infectious Disease
DX: G72.41 Inclusion body myositis [IBM] (principal); I62.03 Nontraumatic chronic subdural hemorrhage; T68.XXXA Hypothermia, initial encounter; D69.6 Thrombocytopenia, unspecified; I10 Essential (primary) hypertension; J44.9 Chronic obstructive pulmonary disease, unspecified; F22 Delusional disorders; Z86.79 Personal history of other diseases of the circulatory system; I44.1 Atrioventricular block, second degree; E55.9 Vitamin D deficiency, unspecified; Z99.3 Dependence on wheelchair; E78.00 Pure hypercholesterolemia, unspecified; G47.33 Obstructive sleep apnea (adult) (pediatric); N40.0 Benign prostatic hyperplasia without lower urinary tract symptoms; Z87.891 Personal history of nicotine dependence; E03.9 Hypothyroidism, unspecified; B37.2 Candidiasis of skin and nail; E53.8 Deficiency of other specified B group vitamins; I25.10 Atherosclerotic heart disease of native coronary artery without angina pectoris; Z79.899 Other long term (current) drug therapy; N28.1 Cyst of kidney, acquired; Z11.52 Encounter for screening for COVID-19; L89.521 Pressure ulcer of left ankle, stage 1
CPT/HCPCS: 51702; 70450; 70551; 71045; 74176; 80048; 80053; 81003; 81015; 82306; 82533; 82550; 82607; 82746; 83036; 83605; 83735; 84145; 84436; 84439; 84443; 84481; 84484; 85025; 85027; 85610; 85652; 85730; 86022; 86140; 86618; 87040; 87502; 87811; 93005; 93306; 93970; 94640; 95816; 96361; 96365; 96366; 96375; 97163; 97167; 97530; 97542; 99285